=== PATIENT | female | born 1945 | race Caucasian/White ===

== ENCOUNTER 2021-07-26 16:21 | Outpatient (CLI) | payer MEDICARE, SELFPAY ==
[2021-07-26 18:03] LABS: Influenza Control Valid (Valid)
[2021-07-26 18:05] LABS: SARS-CoV-2 Ag Negative (Negative)
== END 2021-07-26 16:22 | disposition home or self-care (01) ==
LOC: CHSLAB 16:31
PROVIDERS: PCP Internal Medicine; Visit Provider Internal Medicine
DX: J06.9 Acute upper respiratory infection, unspecified (principal); Z20.822 Contact with and (suspected) exposure to COVID-19
CPT/HCPCS: 87081; 87426; 87804; 87880; C9803

== ENCOUNTER 2021-10-01 20:21 | Observation (INO) | payer MEDICARE, SELFPAY ==
--- NOTE | ~2021-10-01 | CT_ITS ---
EXAMINATION: [facility] EXAM DATE: 10/01/2021 21:03 INDICATION: Confusion, slurred speech. TECHNIQUE: Spiral CT of the head was performed without contrast. Axial, coronal and sagittal images were reviewed. The dose-length product (DLP) for this examination was 605.33 mGy-cm. The exposure w as tailored according to patient size, and iterative reconstruction (ASIR) was used as additional dos e reduction technique. Comparison is made to prior examination from 09/08/2018. FINDINGS: There is no acute intraparenchymal hemorrhage. No evidence of intraparenchymal brain mass lesion. No evidence of acute infarction. Please note that initial head CT has limited sensitivity f or small or acute infarctions. There is moderate periventricular and subcortical hypodensity, nonspe cific but probably related to small vessel ischemic disease. There is moderate prominence of the rivera lci and ventricles related to cerebral atrophy. There is intracranial carotid arteriosclerosis. The re are no extra-axial collections. There is no mass effect or midline shift. The orbits are unremar kable. Soft tissue is unremarkable. The visualized sinuses and mastoid air cells are well aerated. IMPRESSION: 1. No acute intracranial findings. 2. Chronic age related findings. Reviewed, dictated and finalized at location G.
[2021-10-01 20:25] VITALS: BP 166/108; PULSE 96; RESP 18; TEMP 36.5; O2SAT 98
--- NOTE | 2021-10-01 20:31 | ED.AMS ---
HPI - Altered Mental Status General Chief Complaint: Neuro Symptoms/Deficit Stated Complaint: confusion, speech impaired Time Seen by Provider: 10/01/21 20:31 Source: patient and family History of Present Illness HPI narrative: 76-year-old female with a history of dementia, COPD, seizure disorder, was last known well yesterday. Today at 2:00 p.m. she was noticed to have -- mixing words / unable to get the rightward. -- difficulty walking which she was able to bear weight on her legs. Confused. Difficulty with coordination. No falls. Duration of symptoms was around 4 hours Blood sugar was noted to be 101. MD complaint: altered mental status and confusion Onset (ago): unknown Timing confirmed by: family member and other ( First noted to have confusion and altered speech at 2:00 p.m.) Severity: mild Context: seizure disorder Related Data Home Medications Medication Instructions Recorded Confirmed No Home Medications 10/01/21 10/01/21 Allergies Allergy/AdvReac Type Severity Reaction Status Date / Time No Known Allergies Allergy Verified 10/01/21 20:59 Review of Systems Review of Systems: All systems reviewed & are unremarkable except as noted in HPI and below Constitutional: Constitutional: Reports as per HPI and Reports no additional constitutional complaints Eyes: Eyes: Reports as per HPI and Reports no additional eye complaints ENT: Reports system reviewed and no additional complaints, except as documented Cardiovascular: Cardiovascular: Reports as per HPI and Reports no additional cardiovascular complaints Respiratory: Respiratory: Reports as per HPI and Reports no additional respiratory complaints Gastrointestinal: Gastrointestinal: Reports as per HPI and Reports no additional gastrointestinal complaints Genitourinary: Genitourinary: Reports no additional female genitourinary complaints Musculoskeletal: Musculoskeletal: Reports no additional musculoskeletal complaints and Reports as per HPI Integumentary/Breasts: Skin/Breast: Reports system reviewed and no additional complaints, except as docu Neurologic: Comments: difficulty walking the patient was noted to be mixing words according to her daughter. Psychiatric: Psychiatric: Reports no additional psychiatric complaints and Reports as per HPI Endocrine: Endocrine: Reports no additional endocrine complaints and Reports as per HPI Hematologic/Lymphatic: Hematologic/Lymphatic: Reports no additional hematologic/lymphatic complaints and Reports as per HPI Allergic/Immunologic: Allergic/Immunologic: Reports no additional allergic/immunologic complaints and Reports as per HPI [facility] Past Medical History Medical History COPD (chronic obstructive pulmonary disease) Dementia Seizure disorder Exam Const: General: no acute distress and alert Orientation/consciousness: patient oriented x3 HENMT: Head: normal to inspection Eyes: Conjunctivae: conjunctivae normal Pupils: Equal, round and reactive pupils present EOM: EOMs intact bilaterally Neck: Neck: normal visual inspection, no lymphadenopathy and no meningeal signs Chest: Chest palpation & inspection: normal inspection of the chest Resp: Effort & Inspection: normal respiratory effort Cardio: Rate: regular rate Rhythm: regular rhythm GI: GI Palp: Yes Soft to palpation : General: Yes no CVA tenderness Skin: General skin exam: normal color Rashes: no rashes Neuro: General: patient oriented x3, moves all extremities, no meningeal signs, no focal motor deficits and CN's II-XI intact bilaterally Speech: normal speech Other: no focal neuro deficit was noted on examination in the ER no speech difficulty was noted. No dysphagia. No dysarthria. Extrem: General: normal to inspection Psych: Mental Status: mental status grossly normal Course Course Emergency Course: Patient did not have any neuro deficit or slurred speec
[2021-10-01 20:40] VITALS: BP 165/104; PULSE 93; RESP 18; O2SAT 95
--- NOTE | 2021-10-01 20:49 | ECG_ITS ---
Measurements Intervals [place] Rate: 94 P: 86 NM: 164 QRS: 105 QRSD: 122 T: 48 QT: 366 QTc: 458 Interpretive Statements POOR DATA QUALITY SINUS RHYTHM RIGHT BUNDLE BRANCH BLOCK ABNORMAL ECG NO PREVIOUS ECG AVAILABLE FOR COMPARISON Electronically Signed On 10-02-2021 8:39:46 CDT by Jose Daniel Ibrahim M.D.
[2021-10-01 20:51] LABS: Glucose Point of Care 101 mg/dl (65-105)
[2021-10-01] MEDS: ASPIRIN 81 MG CHEWABLE TABLET 324 MG PO (21:01)
[2021-10-01 21:22] VITALS: BP 163/95; PULSE 90; RESP 18; O2SAT 94
[2021-10-01 21:26] LABS: Basophils Absolute Auto 0.04 K/mm3 (0.00-0.10); Basophils Percent Auto 0.6 % (0.0-1.0); Eosinophils Absolute Auto 0.03 K/mm3 (0.02-0.50); Eosinophils Percent Auto 0.4 % (1.0-6.0); Hematocrit 43.1 % (35.0-42.0); Hemoglobin 13.4 g/dL (11.7-13.8); Immature Granulocyte Absolute 0.01 K/mm3 (0.00-0.00); Immature Granulocyte Percent A 0.1 % (0.0-0.0); Lymphocytes Absolute Auto 0.85 K/mm3 (1.10-4.50); Lymphocytes Percent Auto 12.7 % (18.0-42.0); Mean Corpuscular HGB Conc 31.1 g/dL (32.0-36.0); Mean Corpuscular Hemoglobin 28.2 pg (27.0-31.0); Mean Corpuscular Volume 90.5 fL (78.0-102.0); Mean Platelet Volume 7.9 fl (9.2-11.8); Monocytes Absolute Auto 0.54 K/mm3 (0.10-0.90); Monocytes Percent Auto 8.1 % (2.0-11.0); Neutrophils Absolute Auto 5.2 K/mm3 (1.7-7.2); Neutrophils Percent Auto 78.1 % (50.0-70.0); Platelet Count Result 337 K/mm3 (150-420); Red Blood Count 4.76 M/mm3 (4.20-5.40); Red Cell Distribution Width 12.7 % (11.6-14.4); White Blood Count 6.7 K/mm3 (4.8-10.8)
[2021-10-01 21:30] VITALS: BP 155/100; PULSE 92; RESP 18; O2SAT 97
[2021-10-01 21:38] LABS: Partial Thromboplastin Time 26.6 SEC (23.90-30.70); Prothrombin Time 10.9 Seconds (9.50-12.10)
[2021-10-01 21:41] LABS: Lactic Acid Reflex 0.7 mmol/L (0.4-2.0)
[2021-10-01 21:46] LABS: Alanine Aminotransferase 18 U/L (14-59); Albumin Level 3.5 g/dL (3.4-5.0); Alkaline Phosphatase 83 U/L (46-116); Aspartate Amino Transferase 16 U/L (15-37); Bilirubin,Total 0.4 mg/dL (0.00-1.00); Blood Urea Nitrogen 17 mg/dL (7-18); Calcium 9.3 mg/dL (8.5-10.1); Chloride 99 mmol/L (98-108); Estimated CRCL calculation 24 ml/min; Estimated Glomerular Filt Rate 52; Glucose 99 mg/dL (70-99); Lipase 107 U/L (73-393); NT Pro B Type Natriuretic Pept 556 pg/mL (0-450); Osmolality Calculated 285 mOsm/kg (285-295); Potassium 4.3 mmol/L (3.5-5.1); Sodium 137 mmol/L (136-145); Total Protein 7.6 g/dL (6.4-8.2); Troponin I 14.2 ng/L (0.00-60.4)
[2021-10-01 21:49] LABS: Ammonia < 10 umol/L (11-32)
[2021-10-01 21:52] LABS: Anion Gap 8 mmol/L (8-16); Carbon Dioxide 30 mmol/L (21-32)
[2021-10-01 21:58] LABS: Appearance Urine Clear (Clear); Bilirubin Urine Negative (Negative); Color Urine Light Yellow (Yellow); Glucose Urine UA Negative (Negative); Ketones Urine Negative (Negative); Leukocyte Esterase Ur 1+ (Negative); Nitrate Urine Negative (Negative); Protein Urine Negative (Negative); Urobilinogen Urine 0.2 mg/dL (0.2-1.0)
[2021-10-01 22:00] LABS: Add Urine Microscopic? YES; Bacteria Urine Trace /hpf; Blood Urine Trace-Intact (Negative); Squamous Epithelial Cell Urine Few /hpf (Few)
[2021-10-01 22:04] VITALS: BP 174/103; PULSE 94; RESP 18; O2SAT 96
[2021-10-01 23:15] VITALS: BP 123/103; PULSE 96; RESP 16; O2SAT 96
[2021-10-01 23:31] VITALS: BMI 15.5
--- NOTE | 2021-10-01 23:31 | ADMGEN ---
This patient, Polina Tavarez, was admitted to 2nd Floor Room 207-1. Patient/family oriented to hospital policies and general routines including ID bracelet, bed and alarms, visiting hours, pain management, procedures, bathroom and other care routines, personal items, smoking policy, room service/diet, and visiting hours. Information on how to activate the Rapid Response Team has been discussed. Patient/Family are encouraged to report perceived risks to care and to ask questions if they do not understand what they are told or what they should do.
[2021-10-02] VITALS: BP 179/93; PULSE 111; PULSE 94; RESP 18; TEMP 37.4; O2SAT 92
[2021-10-02] MEDS: SODIUM CHLORIDE 0.9% IV 1,000 ML 75 ML IV CONT (00:15)
[2021-10-02 03:04] VITALS: PULSE 89
[2021-10-02 04:00] VITALS: BP 135/82; PULSE 88; RESP 20; TEMP 37.3; O2SAT 90
[2021-10-02 08:00] VITALS: BP 130/79; PULSE 84; PULSE 85; RESP 14; TEMP 36.7; O2SAT 93
[2021-10-02] MEDS: amLODIPine BESYLATE 5 MG TABLET PO (08:50)
--- NOTE | 2021-10-02 10:22 | PM.SD2 ---
Same Day Admit/Disch: HPI History of Present Illness Chief complaint: confusion, speech impaired Narrative: Polina Tavarez is a 76 year old female that presented to our emergency department with increased confusion and speech impairment. Patient has a past medical history of dementia, COPD, and seizure disorder. Patient is a poor historian she is alert and orientated to name and location only. I did speak with her daughter and she notes that patient has been diagnosed with dementia that has worsened in the last couple months. She notes that she spoke with her mother earlier today and noticed that her speech was impaired. Per my assessment patient did not have any neurological deficiencies other than her deficiencies caused by her dementia. According to her daughter she does have an appointment with Dr. Bauer tomorrow. I informed her daughter that we will do outpatient echo, MRI and carotid Doppler with results going to Dr. Bauer. I also informed her daughter that I put her on preventive medications for CVA which would be aspirin in atorvastatin. Patient was also placed on hypertension medication on admission her blood pressure was 166/108 it is currently 130/79, 85, 14, 98.0, 93% on room air, WBC 6.7, hemoglobin 13.4, hematocrit 43.1, platelets 337, sodium 137, potassium 4.3, BUN 17, creatinine 1.03, glucose 99, lactic acid 0.7, tbili 0.4, ast 16, alt 18, trop 14.2, BNP 556, ua leukocytes esterase, bacteria CT brain no acute findings EKG sinus rhythm with a heart rate of 94. The patient denies SOB, CP, palpitation, extremity numbness, lightheadedness, dizziness, constipation, diarrhea, chills, or fever. Patient being admitted to rule out CVA versus [facility] Past Medical History Medical History COPD (chronic obstructive pulmonary disease) Dementia Seizure disorder Social History Social History Smoking packs per day: 0.5 Smoking cigarettes per day: 10.0 Years smoked: 55 Smoking pack-years: 27.50 Smoking status: Former smoker Tobacco type: cigarettes Alcohol intake: never Substance use: never Spiritual care concerns: No Same Day Admit/Disch: Med Pre-admit Medications Home Medications Medication Instructions Recorded Confirmed Type amlodipine [Norvasc] 5 mg PO QAM #60 tablet 10/02/21 Rx aspirin 325 mg PO DAILY #30 tablet 10/02/21 Rx atorvastatin 10 mg PO DAILY #30 tablet 10/02/21 Rx sulfamethoxazole-trimethoprim 1 tablet PO Q12H 7 Days #14 tablet 10/02/21 Rx [Bactrim DS] Exam Narrative: GENERAL: Confused in no apparent distress. HEAD: normocephalic, atraumatic. EYES: PERRL. Sclera clear/white. Vision is grossly intact. EARS: External ears normal, auditory canals clear and without drainage, TMs normal without perforation. Hearing grossly intact. NOSE: External nose normal with no obvious nasal discharge, nares without redness, no rhinorrhea. THROAT: Mucous membranes moist, posterior pharynx clear. NECK: Neck supple, non-tender without lymphadenopathy, masses or thyromegaly. CARDIOVASCULAR: Regular rate and rhythm without murmurs, gallops, or rubs. RESPIRATORY: Clear to auscultation. Breath sounds equal bilaterally. No wheezes, rales, or rhonchi. GASTROINTESTINAL: Abdomen soft, non-tender, nondistended. Bowel sounds are active. No hepato-splenomegaly, or palpable masses. No guarding. SKIN: warm, intact with no suspicious lesions or rash, good texture and turgor. NEURO: awake, alert, and oriented to self and location only there were no obvious focal neurologic abnormalities. Steady gait EXTREMITIES: Normal range of motion. No edema. No calf tenderness. Negative Homans sign bilaterally. BACK: Nontender without deformity or crepitance. No flank tenderness. DS: Data Data Completed and Pending Labs on day of discharge: Labs from last 24 hours 10/01/21 10/01/21 10/01/21 21:50 21:20 21:20
[2021-10-02 12:00] VITALS: BP 136/78; PULSE 84; PULSE 86; RESP 14; TEMP 36.8; O2SAT 95
--- NOTE | 2021-10-02 13:52 | PC.NURSE ---
Pt discharged to home with family care. VSS. Discharge instructions reviewed with pt and daughter. medications and follow up appointments reviewed. Both pt and daughter verbalize understanding.
--- NOTE | 2021-10-06 10:11 | PC.NURSE ---
Pt states she received and understood her discharge instructions. Pt also states they were very, very good.
== END 2021-10-02 13:00 | disposition home or self-care (01) ==
LOC: CHSED 22:17 → CHS2ND 22:26
PROVIDERS: Admitting Provider Internal Medicine; Emergency Provider Internal Medicine Critical Care Medicine; PCP Internal Medicine; Visit Provider Internal Medicine
DX: G45.9 Transient cerebral ischemic attack, unspecified (principal); N39.0 Urinary tract infection, site not specified; J44.9 Chronic obstructive pulmonary disease, unspecified; R56.9 Unspecified convulsions; F03.90 Unspecified dementia, unspecified severity, without behavioral disturbance, psychotic disturbance, mood disturbance, and anxiety; I10 Essential (primary) hypertension
CPT/HCPCS: 36415; 70450; 80053; 81001; 82140; 82948; 83605; 83690; 83880; 84484; 85025; 85610; 85730; 87086; 93005; 96361; 96365; 96367; 99285; A9270; G0378; J0456; J0696; J1650; J7030

== ENCOUNTER 2021-10-05 13:50 | Outpatient (CLI) | payer MEDICARE, SELFPAY ==
--- NOTE | 2021-10-05 14:00 | ECHO_ITS ---
Patient Info Name: Polina Tavarez Age: 76 years : 1945 Gender: Female Ht: 62 in Wt: 90 lbs BSA: 1.33 m2 HR: 110 bpm BP: 128 / 67 mmHg Technical Quality: Good Exam Date: 10/05/2021 1:46 PM Exam Location: [facility] Patient Status: Outpatient Admit Date: 10/05/2021 Staff Ordering Physician: Christian Saxena Technology Consultant: Rashad Attending Provider: Christian Saxena Referring Physician: Hemanth SHERIFF; Exam Type: CA echo doppler color flow Study Info Indications G45.9 - Transient cerebral ischemic attack, unspecified Complete two-dimensional, color flow and Doppler transthoracic echocardiogram is performed. Summary 1. Complete two-dimensional, color flow and Doppler transthoracic echocardiogram is performed. 2. Left ventricular chamber dimension is normal. 3. Left ventricular systolic function is hyperdynamic, estimated at >70%. 4. The left ventricular diastolic function is grade I diastolic dysfunction. 5. E/e' 7 is not elevated. 6. There is trace tricuspid valve regurgitation. 7. No pulmonary hypertension, estimated pulmonary arterial systolic pressure is 32 mmHg. Left Ventricle E/e' 7 is not elevated. Left ventricular chamber dimension is normal. Left ventricular systolic function is hyperdynamic, estimated at >70%. The left ventricular diastolic function is grade I diastolic dysfunction. Right Ventricle Right ventricular systolic function is normal and with normal TAPSE 2.0 cm. Right ventricular chamber dimension is normal. Left Atria Left atrial chamber dimension is normal. Right Atria Right atrial chamber dimension is normal. Aortic Valve The aortic valve is trileaflet. There is no aortic valve stenosis. There is no aortic valve regurgitation. Pulmonic Valve There is no pulmonic regurgitation. Mitral Valve There is no mitral valve stenosis. There is no mitral valve regurgitation. Tricuspid Valve There is trace tricuspid valve regurgitation. No pulmonary hypertension, estimated pulmonary arterial systolic pressure is 32 mmHg. Pericardium/Pleural There is no pericardial effusion. Inferior Vena Cava Normal inferior vena cava with >50% collapse upon inspiration consistent with normal right atrial pressure, 5 mmHg. Aorta The aortic root size at the sinus of Valsalva is normal. Left Ventricular Outflow Tract Name Value Normal LVOT 2D LVOT Diameter 1.8 cm LVOT Doppler LVOT Peak Velocity 100 cm/s LVOT Peak Gradient 4 mmHg LVOT Mean Gradient 2 mmHg LVOT VTI 20 cm LVOT VTI/AV VTI Ratio 0.9 LVOT Stroke Volume 51 ml Mitral Valve Name Value Normal MV Doppler MV Decel Frederick 346 cm/s2 MV PHT
== END 2021-10-05 13:51 | disposition home or self-care (01) ==
LOC: CHSIMG 13:51
PROVIDERS: PCP Internal Medicine; Visit Provider Nurse Practitioner
DX: G45.9 Transient cerebral ischemic attack, unspecified (principal)
CPT/HCPCS: 93306

== ENCOUNTER 2021-10-15 08:27 | Outpatient (CLI) | payer MEDICARE, SELFPAY ==
--- NOTE | ~2021-10-15 | MR_ITS ---
EXAMINATION: MR brain/brain stem wo con DATE: 10/15/2021 09:15 INDICATION: Transient cerebral ischemic attack. TECHNIQUE: Magnetic resonance imaging (MRI) of the brain and brainstem was performed without intraven ous contrast. Sequences included sagittal T1-weighted FSE, axial DWI, and axial FLAIR. The patient co uld not perform additional imaging. COMPARISON: Brain MRI 11/27/2018, head CT 10/01/2021 FINDINGS: There is no acute ischemic infarct or intracranial hemorrhage. There are scattered areas of nonspecific increased T2-weighted signal intensity in the cerebral white matter and fifi. The ventri cles are normal in size. The orbits are normal. IMPRESSION: 1. Stable moderate nonspecific cerebral white matter disease and pontine disease, which likely repres ents chronic small vessel ischemic disease. 2. Note that the examination was ended prematurely, and some sequences were not performed, which decr eases sensitivity. Reviewed, dictated and finalized at location A. IMPRESSION: 1. Stable moderate nonspecific cerebral white matter disease and pontine diseas e, which likely represents chronic small vessel ischemic disease. 2. Note that the examination was ended prematurely, and some sequences were not performed, which decreases sensitivity.
== END 2021-10-15 08:28 | disposition home or self-care (01) ==
LOC: CHSIMG 08:28
PROVIDERS: PCP Internal Medicine; Visit Provider Nurse Practitioner
DX: G45.9 Transient cerebral ischemic attack, unspecified (principal)
CPT/HCPCS: 70551

== ENCOUNTER 2022-05-29 12:51 | Outpatient (CLI) | payer MEDICARE, SELFPAY ==
--- NOTE | ~2022-05-29 | CT_ITS ---
EXAMINATION: CT lung screening DATE: 05/29/2022 13:31 INDICATION: Personal history of tobacco dependence TECHNIQUE: Computed tomography (CT) of the chest was performed without intravenous contrast. The dose -length product was 64.84 mGy-cm. Automated exposure control and iterative reconstruction technique w ere employed. COMPARISON: CT dated 12/23/2018 FINDINGS: Heart size normal. No significant pleural or pericardial effusion. Stable borderline size m ediastinal lymph node in the precarinal space and AP window, likely reactive. There is atherosclerosi s of the aorta and coronary arteries. Heart size normal. No significant pleural or pericardial effusi on. There is emphysema. No endobronchial lesions. Calcified granuloma superior segment right lower lo be. There is a 3 mm right upper lobe nodule, image 45. This is unchanged from prior study. There are small nodules in the left upper lobe measuring 2 mm or less. No peripheral consolidation. No pneumoth orax. There is a chronic superior endplate compression fracture of T12 unchanged. There is scoliosis. IMPRESSION: 1. Lung-RADS category 2: Benign appearance or behavior. Continue annual screening with noncontrast lo w-dose chest CT in 12 months. Reviewed, dictated and finalized at location B. GE WORKER IMPRESSION: 1. Lung-RADS category 2: Benign appearance or behavior. Continue annual screeni ng with noncontrast low-dose chest CT in 12 months.
--- NOTE | ~2022-05-29 | DEXA_ITS ---
Bone Density Report Name: MARINA LOPEZ Age: 76 Sex: Female Ethnicity: White Date of : 1945 Indication: postmenopausal; screening for osteoporosis; height loss; seizure disorder; Referring Provider: Ricky Bauer Study: Bone densitometry was performed. Exam Date: May 29, 2022 Accession number: [id number] Bone Density: Region BMD T-score Z-score Classification AP Spine(L1-L4) 0.561 -4.4 -1.9 Osteoporosis Femoral Neck (Left) 0.385 -4.2 -2.0 Osteoporosis Total Hip (Left) 0.433 -4.2 -2.3 Osteoporosis Femoral Neck (Right) 0.353 -4.5 -2.3 Osteoporosis Total Hip (Right) 0.391 -4.5 -2.6 Osteoporosis Femoral Neck Mean 0.369 -4.3 -2.2 Osteoporosis Total Hip Mean 0.412 -4.3 -2.5 Osteoporosis World Health Organization criteria for BMD impression classify patients as: Normal (T-score at or above -1.0), Osteopenia (T-score between -1.0 and -2.5), or Osteoporosis (T-score at or below -2.5). 10-year Fracture Risk: FRAX not reported because: Some T-score for Spine Total or Hip Total or Femoral Neck at or below -2.5 Clinical Information Provided by Patient: Has used the following medications: Vitamin D Has the following medical conditions: Any Seizure Disorders Patient maximum height was 62 Menopause Age: 50 No regular weight bearing exercise Does not regularly consume dairy products Onset of menses at age 11 Number of children 2 Impression: The patient has osteoporosis, based on the Right Total Hip T-score. Discussion: HIGH RISK OF FRACTURE. BONE DENSITY IS UNDESIRABLY LOW AT ONE OR MORE SKELETAL SITES, CONSISTENT WITH OSTEOPOROSIS. ALSO, BONE DENSITY IS LOWER THAN EXPECTED FOR AGE AND SEX AT ONE OR MORE SKELETAL SITES; RECOMMEND A DILIGENT SEARCH FOR SECONDARY CAUSES OF BONE LOSS. This patient's lowest T-score meets the World Health Organization's (WHO) criteria for osteoporosis at one or more sites (T-score -2.5 or below). In untreated patients, the risk of osteoporotic fracture increases approximately two-fold for each 1.0 SD decrease in T-score. Low bone density is not the only risk factor for fracture; also consider factors such as patient's age, frailty or poor health, risk of falling, risk of injury, previous osteoporotic fracture, family history of osteoporosis, cigarette smoking, low body weight, etc. Not everyone with low bone mineral density has osteoporosis; osteomalacia and other metabolic bone disorders should also be considered. Patients who have osteoporosis should be evaluated for specific diseases and conditions (secondary causes) that may cause or contribute to bone loss. The [place] Association [employer] Clinical Endocrinologists (AACE) and National Osteoporosis Foundation (NOF) recommend pharmacologic intervention for all postmenopausal women whose T-score is in th
== END 2022-05-29 12:52 | disposition home or self-care (01) ==
LOC: CHSIMG 12:54
PROVIDERS: PCP Internal Medicine; Visit Provider Internal Medicine
DX: Z12.2 Encounter for screening for malignant neoplasm of respiratory organs (principal); Z87.891 Personal history of nicotine dependence; M81.0 Age-related osteoporosis without current pathological fracture
CPT/HCPCS: 71271; 77080

== ENCOUNTER 2022-06-22 13:42 | Emergency (ER) | payer MEDICARE, MEDICAID, SELFPAY ==
--- NOTE | ~2022-06-22 | XR_ITS ---
EXAMINATION: XR chest 1V portable INDICATION: Weakness and shortness of breath TECHNIQUE: Portable AP chest at 1502 hours COMPARISON: 11/25/[address] dated 05/29/2022 FINDINGS: The lungs are hyperinflated but free of acute opacities. No pleural effusion or pneumothora x. The cardiomediastinal silhouette is normal. IMPRESSION: 1. Hyperinflation without acute cardiopulmonary abnormality. Reviewed, dictated and finalized at location A. ACE FITTER
--- NOTE | 2022-06-22 14:32 | ECG_ITS ---
Measurements Intervals [place] Rate: 91 P: 85 [place]: 133 QRS: 156 QRSD: 122 T: 46 QT: 362 QTc: 445 Interpretive Statements SINUS RHYTHM RIGHT BUNDLE BRANCH BLOCK [120+ ms QRS DURATION, UPRIGHT V1, 40+ ms S IN I/aVL/V4/V5/V6] LEFT POSTERIOR FASCICULAR BLOCK [QRS AXIS > 109, INFERIOR Q] COMPARED TO ECG 10/01/2021 21:06:15 LEFT POSTERIOR FASCICULAR BLOCK NOW PRESENT Electronically Signed On 06-22-2022 20:08:49 HEALTH CARE LAW SPECIALIST by Cherie Drew M.D.
[2022-06-22 14:40] VITALS: BP 119/73; PULSE 110; RESP 20; TEMP 36.4; O2SAT 91
[2022-06-22] MEDS: SODIUM CHLORIDE 0.9% IV 1,000 ML 999 ML IV CONT (15:09)
[2022-06-22 15:16] LABS: Basophils Absolute Auto 0.04 K/mm3 (0.00-0.10); Basophils Percent Auto 0.6 % (0.0-1.0); Eosinophils Absolute Auto 0.06 K/mm3 (0.02-0.50); Eosinophils Percent Auto 0.9 % (1.0-6.0); Hematocrit 48.5 % (35.0-42.0); Hemoglobin 15.4 g/dL (11.7-13.8); Immature Granulocyte Absolute 0.03 K/mm3 (0.00-0.00); Immature Granulocyte Percent A 0.4 % (0.0-0.0); Lymphocytes Percent Auto 14.6 % (18.0-42.0); Mean Corpuscular HGB Conc 31.8 g/dL (32.0-36.0); Mean Corpuscular Hemoglobin 29.2 pg (27.0-31.0); Mean Corpuscular Volume 91.9 fL (78.0-102.0); Mean Platelet Volume 8.6 fl (9.2-11.8); Monocytes Absolute Auto 0.46 K/mm3 (0.10-0.90); Monocytes Percent Auto 6.7 % (2.0-11.0); Neutrophils Absolute Auto 5.2 K/mm3 (1.7-7.2); Neutrophils Percent Auto 76.8 % (50.0-70.0); Platelet Count Result 278 K/mm3 (150-420); Red Blood Count 5.28 M/mm3 (4.20-5.40); Red Cell Distribution Width 12.5 % (11.6-14.4); White Blood Count 6.8 K/mm3 (4.8-10.8)
[2022-06-22 15:17] LABS: Add Urine Microscopic? YES; Appearance Urine Clear (Clear); Bilirubin Urine 2+ (Negative); Blood Urine Trace-Intact (Negative); Color Urine Yellow (Yellow); Glucose Urine UA Negative (Negative); Ketones Urine 1+ (Negative); Leukocyte Esterase Ur Negative LEU/UL (Negative); Nitrate Urine Negative (Negative); Protein Urine 3+ (Negative); Specific Grav Ur >= 1.030 (1.010-1.020)
[2022-06-22 15:40] LABS: Bacteria Urine Trace /hpf; Mucus Urine Few /lpf; RBC Urine 0-2 /hpf (0-2); Squamous Epithelial Cell Urine Few /hpf (Few); WBC Urine 0-3 /hpf (0-3)
[2022-06-22 15:42] LABS: Alanine Aminotransferase 21 U/L (14-59); Albumin Level 4.1 g/dL (3.4-5.0); Alkaline Phosphatase 65 U/L (46-116); Anion Gap 8 mmol/L (8-16); Aspartate Amino Transferase 22 U/L (15-37); Bilirubin,Total 0.6 mg/dL (0.00-1.00); Blood Urea Nitrogen 19 mg/dL (7-18); Calcium 9.8 mg/dL (8.5-10.1); Carbon Dioxide 30 mmol/L (21-32); Chloride 102 mmol/L (98-108); Estimated CRCL calculation 18 ml/min; Estimated Glomerular Filt Rate 42; Glucose 100 mg/dL (70-99); Osmolality Calculated 292 mOsm/kg (285-295); Potassium 3.4 mmol/L (3.5-5.1); Sodium 140 mmol/L (136-145); Total Protein 7.8 g/dL (6.4-8.2)
[2022-06-22 15:45] LABS: Lactic Acid Reflex 1.9 mmol/L (0.4-2.0)
--- NOTE | 2022-06-22 16:03 | ED.GENADULT ---
HPI - General Adult General Chief complaint: Dizziness Stated complaint: loss of appetite/Dizzy/confusion/ Time Seen by Provider: 06/22/22 13:48 Source: patient Mode of arrival: ambulatory Limitations: no limitations History of Present Illness HPI narrative: this is a 76-year-old female brought in by her daughter with some about 3 month history of a decreased appetite currently having weakness with history of dementia there is no chest pain no shortness of breath no fever chills no abdominal pain no nausea vomiting does have some mild dysuria with suprapubic pressure with no flank pain no dysuria. Onset (ago): month(s) Severity: mild Related Data Allergies Allergy/AdvReac Type Severity Reaction Status Date / Time No Known Allergies Allergy Verified 10/06/21 11:20 Review of Systems Review of Systems: All systems reviewed & are unremarkable except as noted in HPI and below PMFSH Past Medical History Medical History COPD (chronic obstructive pulmonary disease) Dementia Seizure disorder Social History Social History Smoking packs per day: 0.5 Smoking cigarettes per day: 10.0 Years smoked: 55 Smoking pack-years: 27.50 Smoking status: Former smoker Tobacco type: cigarettes Alcohol intake: never Substance use: never Spiritual care concerns: No Exam Const: General: healthy appearing Nutritional Appearance: thin Limitations: no limitations HENMT: Head: normal to inspection Face/Nose/Sinus: Normal external nose present Face and sinus: normal facial exam Mouth: Yes Normal oral and palatal mucosa present Eyes: Conjunctivae: conjunctivae normal Pupils: Equal, round and reactive pupils present EOM: EOMs intact bilaterally Neck: Neck: normal visual inspection Chest: Chest palpation & inspection: normal inspection of the chest Resp: Effort & Inspection: normal respiratory effort Auscultation: clear to auscultation bilaterally Cardio: Rate: regular rate Rhythm: regular rhythm GI: GI Palp: Yes Soft to palpation Auscultation: normal bowel sounds : General: Yes bladder normal to palpation Urinary Catheter: Urinary Catheter: patent and draining Back/Spine/Pelvis: Back: no CVA tenderness Skin: General skin exam: normal color Rashes: no rashes Wounds: no wounds Neuro: General: patient oriented x3 Cranial nerves: Yes Nystagmus not present Speech: normal speech Gait exam (Neuro): Normal gait present Extrem: General: normal to inspection Psych: Mental Status: mental status grossly normal Affect: normal affect Attitude: cooperative Course Course Emergency Course: You had with patient and family advised to follow-up with her primary care physician within the next week for further evaluation and treatment. Vital Signs Vital signs: Vital Signs Temperature 36.4 C L 06/22/22 14:40 Pulse Rate 110 H 06/22/22 14:40 Respiratory Rate 20 06/22/22 14:40 Blood Pressure 119/73 06/22/22 14:40 Pulse Oximetry 91 06/22/22 14:40 Oxygen Delivery Room Air 06/22/22 14:40 Temperature 36.4 C L 06/22/22 14:40 Pulse Rate 110 H 06/22/22 14:40 Respiratory Rate 20 06/22/22 14:40 Blood Pressure 119/73 06/22/22 14:40 Pulse Oximetry 91 06/22/22 14:40 Oxygen Delivery Room Air 06/22/22 14:40 Medical Decision Making Vital Signs Vital Signs: Vital Signs Temperature 36.4 C L 06/22/22 14:40 Pulse Rate 110 H 06/22/22 14:40 Respiratory Rate 20 06/22/22 14:40 Blood Pressure 119/73 06/22/22 14:40 Pulse Oximetry 91 06/22/22 14:40 Oxygen Delivery Room Air 06/22/22 14:40 Temperature 36.4 C L 06/22/22 14:40 Pulse Rate 110 H 06/22/22 14:40 Respiratory Rate 20 06/22/22 14:40 Blood Pressure 119/73 06/22/22 14:40 Pulse Oximetry 91 06/22/22 14:40 Oxygen Delivery Room Air 06/22/22 14:40 Lab Data 06/22/22 15:09
[2022-06-22 16:34] VITALS: BP 116/67; PULSE 84; RESP 20; TEMP 36.7; O2SAT 94
--- NOTE | 2022-06-28 12:54 | PC.NURSE ---
FINAL BLOOD CULTURE RESULTS X2: NO GROWTH AFTER 5 DAYS. NO ACTION NEEDED.
== END 2022-06-22 16:30 | disposition home or self-care (01) ==
PROVIDERS: Emergency Provider Emergency Medicine; PCP Internal Medicine
DX: N39.0 Urinary tract infection, site not specified (principal); J44.9 Chronic obstructive pulmonary disease, unspecified; F03.90 Unspecified dementia, unspecified severity, without behavioral disturbance, psychotic disturbance, mood disturbance, and anxiety; Z87.891 Personal history of nicotine dependence
CPT/HCPCS: 36415; 71045; 80053; 81001; 83605; 85025; 87040; 93005; 96360; 99283; J7030

== ENCOUNTER 2022-06-28 15:21 | Emergency (ER) | payer MEDICARE, MEDICAID, SELFPAY ==
--- NOTE | ~2022-06-28 | XR_ITS ---
EXAMINATION: XR chest 2V DATE: 06/28/2022 16:28 INDICATION: Weakness, history of tobacco use TECHNIQUE: PA and lateral views of the chest are obtained. COMPARISON: 06/22/2022 FINDINGS: The lungs are hyperinflated but free of acute opacities. No pleural effusion or pneumothora x. The cardiomediastinal silhouette is normal. There is moderate thoracic spondylosis. IMPRESSION: 1. Hyperinflation without acute cardiopulmonary abnormality. Reviewed, dictated and finalized at location F. THCARE MANAGEMENT CONSULTANT
[2022-06-28 15:25] VITALS: BP 113/84; PULSE 102; RESP 16; TEMP 36.3; O2SAT 96
--- NOTE | 2022-06-28 15:32 | ECG_ITS ---
Measurements Intervals [place] Rate: 97 P: 84 [place]: 134 QRS: 109 QRSD: 121 T: -12 QT: 358 QTc: 455 Interpretive Statements SINUS RHYTHM POSSIBLE LEFT ATRIAL ENLARGEMENT [-0.1mV P WAVE IN V1/V2] MARKED RIGHT AXIS DEVIATION [QRS AXIS > 100] RIGHT BUNDLE BRANCH BLOCK [120+ ms QRS DURATION, UPRIGHT V1, 40+ ms S IN I/aVL/V4/V5/V6] COMPARED TO ECG 06/22/2022 14:43:22 NO SIGNIFICANT CHANGES Electronically Signed On 06-28-2022 18:14:21 MACHINE ASSEMBLER SUPERVISOR by Hank Streeter M.D.
[2022-06-28 15:54] LABS: Basophils Absolute Auto 0.1 K/mm3 (0.0-0.1); Basophils Percent Auto 0.7 % (0.2-1.2); Eosinophils Percent Auto 0.4 % (0-4.4); Hematocrit 47.8 % (37.0-47.0); Hemoglobin 15.1 g/dL (12.0-15.0); Immature Granulocyte Absolute 0.02 K/mm3 (0.00-0.031); Immature Granulocyte Percent A 0.3 % (0-0.5); Lymphocytes Absolute Auto 0.68 K/mm3 (0.9-3.2); Lymphocytes Percent Auto 9.8 % (18.3-44.2); Mean Corpuscular HGB Conc 31.6 g/dl (32-36); Mean Corpuscular Hemoglobin 29.2 pg (26-34); Mean Corpuscular Volume 92.3 fl (80-100); Mean Platelet Volume 8.6 fl (7.4-10.4); Monocytes Absolute Auto 0.4 K/mm3 (0.1-0.6); Monocytes Percent Auto 6.4 % (2.6-8.5); Neutrophils Absolute Auto 5.7 K/mm3 (1.3-6.7); Neutrophils Percent Auto 82.4 % (45.5-73.1); Platelet Count Result 296 k/mm3 (150-375); Red Blood Count 5.18 M/mm3 (4.2-5.4); Red Cell Distribution Width 12.9 % (11.5-14.5); White Blood Count 6.9 K/mm3 (4.5-10.0)
[2022-06-28 16:02] LABS: Alanine Aminotransferase 23 U/L (6-35); Albumin Level 4.4 g/dL (3.5-5.1); Alkaline Phosphatase 65 U/L (38-126); Anion Gap 8 mmol/L (8-16); Aspartate Amino Transferase 37 U/L (14-36); Bilirubin,Total 0.6 mg/dL (0.2-1.3); Blood Urea Nitrogen 14 mg/dL (7-17); Calcium 9.4 mg/dL (8.4-10.2); Carbon Dioxide 33 mmol/L (22-30); Chloride 98 mmol/L (98-107); Estimated CRCL calculation 22 ml/min; Estimated Glomerular Filt Rate 54; Glucose 110 mg/dL (65-110); Potassium 3.2 mmol/L (3.4-5.0); Sodium 139 mmol/L (137-145)
[2022-06-28 16:23] LABS: Influenza A QL RT-PCR Negative (Negative); Influenza B QL RT-PCR Negative (Negative); RSV RNA, RT-PCR Negative (Negative); SARS-CoV-2 RNA PCR Negative
[2022-06-28 16:41] LABS: Appearance Urine Clear (Clear); Bilirubin Urine 2+ (Negative); Blood Urine Trace-Intact (Negative); Glucose Urine UA Negative (Negative); Ketones Urine 1+ mg/dL (Negative); Leukocyte Esterase Ur Negative LEU/UL (Negative); Nitrate Urine Negative (Negative); Protein Urine 3+ mg/dL (Negative); Specific Grav Ur >= 1.030 (1.001-1.035); Urobilinogen Urine 0.2 mg/dL (<2.0); pH Urine 5.5 (5.0-9.0)
[2022-06-28 16:52] LABS: Add Urine Microscopic? YES; Color Urine Dark Yellow (Yellow)
[2022-06-28 17:06] LABS: Hyaline Casts Urine 20-29 /lpf; Mucus Urine Heavy /lpf; RBC Urine 0-2 /hpf (0-2); Squamous Epithelial Cell Urine Few /hpf (Few)
[2022-06-28 20:10] VITALS: BP 110/72; PULSE 97; RESP 14; O2SAT 97
--- NOTE | 2022-06-28 21:22 | ED.WEAKNESS ---
HPI - Weakness General Chief complaint: Weakness Stated complaint: fatigue, poor appetite the past month. Time Seen by Provider: 06/28/22 21:02 History of Present Illness HPI Narrative: 76-year-old female history of dementia, hypertension, TIAs presents to the emergency room with increasing weakness, fatigue and a poor appetite over 1 month. Patient was seen at an outside emergency room 1 week ago and was told that she had a UTI. Finished a course of antibiotics and symptoms have not improved. Patient is accompanied by her daughter, who provides some of the history. Daughter states patient has shown a decrease in appetite and oral intake over the last month, and has fallen multiple times over the past year. Daughter also reports patient has experienced unexplained weight loss. Related Data Home Medications Medication Instructions Recorded Confirmed amlodipine 5 mg tablet (Norvasc) 10 mg PO QAM 06/22/22 06/22/22 calcitriol 0.25 mcg capsule 0.25 mcg PO DAILY 06/22/22 06/22/22 donepezil 10 mg tablet 10 mg PO BID 06/22/22 06/22/22 Allergies Allergy/AdvReac Type Severity Reaction Status Date / Time No Known Allergies Allergy Verified 06/22/22 16:17 Review of Systems Review of Systems: CONSTITUTIONAL: Denies fever, chills, or sweats. EYES: Denies visual changes, redness, or discharge. ENT: Denies rhinorrhea, congestion, sore throat, or otalgia. CARDIOVASCULAR: Denies chest pain, palpitations, or edema. RESPIRATORY: Denies cough or dyspnea. GASTROINTESTINAL: Denies abdominal pain, nausea, vomiting, or diarrhea. GENITOURINARY: Denies dysuria or hematuria. SKIN: Denies rash or itching. MUSCULOSKELETAL: Denies back pain, joint pain, or myalgia. NEUROLOGIC: Reports weakness, dizziness PSYCHIATRIC: Denies anxiety or depression. [facility] Past Medical History Medical History COPD (chronic obstructive pulmonary disease) Dementia Seizure disorder Social History Social History Smoking packs per day: 0.5 Smoking cigarettes per day: 10.0 Years smoked: 55 Smoking pack-years: 27.50 Smoking status: Former smoker Tobacco type: cigarettes Alcohol intake: never Substance use: never Spiritual care concerns: No Exam Narrative: GENERAL: Chronically ill appearing, cachectic, no physical limitations, and in no acute distress. HEAD: Normocephalic, atraumatic. EYES: Conjunctivae normal, PERRLA and EOMI. ENT: External nose normal, Nares clear, no rhinorrhea or epistaxis. Mucous membranes moist. Oropharynx without tonsillar hypertrophy exudate or other lesions. External ears normal, bilateral TMs normal bilaterally NECK: Supple. CHEST: Clear to auscultation. No respiratory distress. No wheezes rales or rhonchi. HEART: Regular rate and rhythm. No murmur heard. Normal peripheral pulses. ABDOMEN: Soft, nontender, nondistended, normal active bowel sounds. EXTREMITIES: Normal range of motion. No edema. No clubbing or cyanosis SKIN: Warm, dry, no rash. No noted wounds NEURO: No focal deficits. Alert and oriented x3. MAEW. CN's II-XI intact bilaterally, normal gait PSYCH: Cooperative. Normal mood and affect. Course Vital Signs Vital signs: Vital Signs Temperature 36.3 C L 06/28/22 15:25 Pulse Rate 102 H 06/28/22 15:25 Respiratory Rate 16 06/28/22 15:25 Blood Pressure 113/84 06/28/22 15:25 Pulse Oximetry 96 06/28/22 15:25 Oxygen Delivery Room Air 06/28/22 15:25 Temperature 36.3 C L 06/28/22 15:25 Pulse Rate 97 06/28/22 20:10 Respiratory Rate 14 06/28/22 20:10 Blood Pressure 110/72 06/28/22 20:10 Pulse Oximetry 97 06/28/22 20:10 Oxygen Delivery Room Air 06/28/22 15:25 MDM - Weakness MDM Narrative Medical decision making narrative: 76-year-old female presenting with her daughter to the emergency room for increasing weakness, fatigue poor appetite over a month. Pat
== END 2022-06-28 22:12 | disposition home or self-care (01) ==
PROVIDERS: Emergency Medicine; Emergency Provider Nurse Practitioner Family; PCP Internal Medicine
DX: R62.7 Adult failure to thrive (principal); Z68.1 Body mass index [BMI] 19.9 or less, adult; Z20.822 Contact with and (suspected) exposure to COVID-19; F03.90 Unspecified dementia, unspecified severity, without behavioral disturbance, psychotic disturbance, mood disturbance, and anxiety; I10 Essential (primary) hypertension; J44.9 Chronic obstructive pulmonary disease, unspecified; G40.909 Epilepsy, unspecified, not intractable, without status epilepticus; Z86.73 Personal history of transient ischemic attack (TIA), and cerebral infarction without residual deficits; Z87.891 Personal history of nicotine dependence; I45.10 Unspecified right bundle-branch block; R94.31 Abnormal electrocardiogram [ECG] [EKG]
CPT/HCPCS: 36415; 71046; 80053; 81001; 85025; 87637; 93005; 99283

== ENCOUNTER 2022-07-07 10:11 | Outpatient (CLI) | payer MEDICARE, SELFPAY ==
[2022-07-07 10:50] LABS: Anion Gap 6 mmol/L (8-16); Blood Urea Nitrogen 9 mg/dL (7-18); Calcium 9.2 mg/dL (8.5-10.1); Carbon Dioxide 37 mmol/L (21-32); Chloride 99 mmol/L (98-108); Estimated Glomerular Filt Rate 44; Glucose 127 mg/dL (70-99); Magnesium 1.7 mg/dL (1.8-2.4); Osmolality Calculated 294 mOsm/kg (285-295); Potassium 2.9 mmol/L (3.5-5.1); Sodium 142 mmol/L (136-145)
== END 2022-07-07 10:12 | disposition home or self-care (01) ==
LOC: CHSLAB 10:14
PROVIDERS: PCP Internal Medicine; Visit Provider Internal Medicine
DX: E87.6 Hypokalemia (principal)
CPT/HCPCS: 36415; 80048; 83735

== ENCOUNTER 2022-07-10 13:33 | Outpatient (CLI) | payer MEDICARE, SELFPAY ==
[2022-07-10 14:20] LABS: Alanine Aminotransferase 23 U/L (14-59); Albumin Level 3.6 g/dL (3.4-5.0); Alkaline Phosphatase 61 U/L (46-116); Anion Gap 2 mmol/L (8-16); Aspartate Amino Transferase 20 U/L (15-37); Bilirubin,Total 0.4 mg/dL (0.00-1.00); Blood Urea Nitrogen 8 mg/dL (7-18); Calcium 9.3 mg/dL (8.5-10.1); Carbon Dioxide 37 mmol/L (21-32); Chloride 103 mmol/L (98-108); Estimated Glomerular Filt Rate 46; Glucose 123 mg/dL (70-99); Magnesium 1.9 mg/dL (1.8-2.4); Osmolality Calculated 293 mOsm/kg (285-295); Potassium 3.8 mmol/L (3.5-5.1); Sodium 142 mmol/L (136-145); Total Protein 6.5 g/dL (6.4-8.2)
== END 2022-07-10 13:34 | disposition home or self-care (01) ==
LOC: CHSLAB 13:37
PROVIDERS: PCP Internal Medicine; Visit Provider Internal Medicine
DX: E87.6 Hypokalemia (principal); I10 Essential (primary) hypertension
CPT/HCPCS: 36415; 80048; 80053; 83735

== ENCOUNTER 2022-08-10 09:56 | Outpatient (CLI) | payer MEDICARE, SELFPAY ==
[2022-08-10 10:21] VITALS: PULSE 112; O2SAT 94
[2022-08-10 10:27] VITALS: PULSE 140; O2SAT 92
[2022-08-10 10:49] LABS: CRP < 0.5 mg/dL (0.0-0.9)
[2022-08-10 11:26] LABS: Erythrocyte Sedimentation Rate 12 mm/hr (0-20)
[2022-08-12 20:12] LABS: Albumin 3.9 g/dL (3.8-4.8); Alpha 1 Globulin 0.3 g/dL (0.2-0.3); Alpha 2 Globulin 0.8 g/dL (0.5-0.9); Beta 1 Globulin 0.4 g/dL (0.4-0.6); Gamma Globulin 0.8 g/dL (0.8-1.7); Protein, Total 6.6 g/dL (6.1-8.1)
[2022-08-13 07:21] LABS: Kappa\\Lambda Light Chains 1.31 (0.26-1.65); Lambda Light Chain 16.5 mg/L (5.7-26.3)
--- NOTE | 2022-08-14 16:15 | HOMEO2EVAL ---
Evaluation was performed at [facility] - [place]
--- NOTE | 2022-08-15 05:56 | HOMEO2EVAL ---
Evaluation was performed at [facility] - [place]
[2022-08-18 14:17] LABS: Creatinine, Random Urine 147 mg/dL (20-275); Total Protein/Creatinine Ratio 218 mg/g creat (24-184)
== END 2022-08-10 09:57 | disposition home or self-care (01) ==
PROVIDERS: PCP Internal Medicine; Visit Provider Internal Medicine
DX: N18.2 Chronic kidney disease, stage 2 (mild) (principal); R63.4 Abnormal weight loss; J44.9 Chronic obstructive pulmonary disease, unspecified; R06.00 Dyspnea, unspecified
CPT/HCPCS: 36415; 82570; 83883; 84155; 84156; 84165; 84166; 85652; 86038; 86140; 86334; 94618

== ENCOUNTER 2022-08-14 09:03 | Outpatient (CLI) | payer MEDICARE, SELFPAY ==
[2022-08-10 10:25] VITALS: PULSE 134; O2SAT 95
[2022-08-10 10:27] VITALS: PULSE 138; O2SAT 95
[2022-08-10 10:29] VITALS: PULSE 140; O2SAT 92
--- NOTE | ~2022-08-14 | US_ITS ---
Abdominal Sonogram: Real-time sonographic imaging of the abdomen was performed. Clinical History: Weight loss Findings: The liver appears normal with no evidence of mass lesion or bile duct dilatation. Main por cami vein demonstrates normal direction of flow. The spleen is normal in size without evidence of foca l lesion. The gallbladder is well distended, and appears normal with no evidence of gallstone or wal l thickening. The common bile duct measures 3 mm. The visualized pancreas, aorta, and IVC are unrema rkable. The right kidney measures 7.8 cm in length and the left kidney measures 8.4 cm. There is no hydronephrosis or renal calculus. Impression: Unremarkable abdominal ultrasound. Reviewed, dictated and finalized at location . ERN ASSEMBLER Impression: Unremarkable abdominal ultrasound.
[2022-08-14 09:50] LABS: Total Protein Urine Random 9.1 mg/dL (0.0-11.9)
[2022-08-14 09:52] LABS: Total Protein Urine 24 Hr 46 mg/24hr (0-149); Total Volume 24 Hour Urine 500 ml
== END 2022-08-14 09:04 | disposition home or self-care (01) ==
LOC: CHSIMG 09:05
PROVIDERS: PCP Internal Medicine; Visit Provider Internal Medicine
DX: N18.2 Chronic kidney disease, stage 2 (mild) (principal); R63.4 Abnormal weight loss; R80.9 Proteinuria, unspecified
CPT/HCPCS: 76700; 81050; 84156

== ENCOUNTER 2023-01-21 13:25 | Emergency (ER) | payer MEDICARE, SELFPAY ==
--- NOTE | ~2023-01-21 | XR_ITS ---
EXAMINATION: XR wrist LT min 3V DATE: 01/21/2023 14:21 INDICATION: Left wrist pain. TECHNIQUE: 4 views of left wrist were obtained. COMPARISON: None. FINDINGS: Bone alignment is normal. No fracture. There is mild osteoarthritis of triscaphe joint and severe osteoarthritis of first carpometacarpal joint. IMPRESSION: 1. Polyarticular osteoarthritis. Reviewed, dictated and finalized at location E.
[2023-01-21 13:25] VITALS: BP 160/91; PULSE 105; RESP 20; TEMP 37.2; O2SAT 95
--- NOTE | 2023-01-21 14:06 | ED.EXTPRO ---
HPI - Extremity Problem General Chief complaint: Extremity Problem,Nontraumatic Stated complaint: left wrist pain Time Seen by Provider: 01/21/23 13:46 Source: patient and family Mode of arrival: ambulatory Limitations: no limitations History of Present Illness HPI Narrative: 77-year-old white female complains of Left wrist pain swelling and warmness since last night no history of trauma. patient presents with her daughter who is very helpful with the history. Daughter says she just started complaining that last night but patient said she has had for some time. Hurts to move it. Denies any numbness or tingling denies any other joint pain or swelling. She has history of arthritis. She took an extra Strength Tylenol last night which might help a little bit nothing taken today. Denied any problems eating or drinking voiding or stooling cough shortness of breath fever sore throat. She has had a runny nose all the time denies any problems walking talking seeing or hearing rash or itching lumps or bumps. Denies any other swelling besides her left wrist. Denies any dizziness or lightheadedness or any other complaints. Past medical history dementia social history she lives with her daughter Bhakti past surgeries she has had bilateral cataracts Related Data Allergies Allergy/AdvReac Type Severity Reaction Status Date / Time No Known Allergies Allergy Verified 06/22/22 16:17 [facility] Past Medical History Medical History COPD (chronic obstructive pulmonary disease) Dementia Seizure disorder Social History Social History Smoking packs per day: 0.5 Smoking cigarettes per day: 10.0 Years smoked: 55 Smoking pack-years: 27.50 Smoking status: Former smoker Tobacco type: cigarettes Alcohol intake: never Substance use: never Spiritual care concerns: No Exam Narrative: elderly White patient no apparent distress.? Head normocephalic, atraumatic.? Eyes conjunctiva pink sclera nonicteric.? Extraocular movements are intact.? Ears externally normal.? Oropharynx is clear with moist mucous membranes without exudates.? Neck is supple nontender no lymphadenopathy.? Back is nontender.? Lungs are clear.? Heart is regular rate and rhythm without murmurs gallops or rubs.? Chest wall is nontender.? Abdomen is soft and nontender no hepatosplenomegaly or masses no CVA tenderness no abdominal bruits.? Extremities: Left wrist mild erythema and swelling with decreased range of motion all directions diffuse tenderness. Radial pulses +2 capillary refills normal.? Skin is warm and dry without rashes or lesions.? Neurological patient is alert and oriented x4.? Motor and sensory grossly intact.? Gait is normal. Course Vital Signs Vital signs: Vital Signs Temperature 37.2 C 01/21/23 13:25 Pulse Rate 105 H 01/21/23 13:25 Respiratory Rate 20 01/21/23 13:25 Blood Pressure 160/91 H 01/21/23 13:25 Pulse Oximetry 95 01/21/23 13:25 Oxygen Delivery Room Air 01/21/23 13:25 Temperature 37.2 C 01/21/23 13:25 Pulse Rate 105 H 01/21/23 13:25 Respiratory Rate 20 01/21/23 13:25 Blood Pressure 160/91 H 01/21/23 13:25 Pulse Oximetry 95 01/21/23 13:25 Oxygen Delivery Room Air 01/21/23 13:25 MDM - Extremity (Nontraumatic) MDM Narrative Medical decision making narrative: Patient was placed in room 3 history and physical was performed with her daughter present Bhakti. a cock-up splint was applied which relieved her pain. Labs were drawn for CBC CMP uric acid CRP and sed rate. C reactive protein is elevated at 1.5. CMP, CBC and uric acid were normal. sed rate was pending at the time discharge. Independent Historian: daughter? Differential Dx includes but not limited to: fracture dislocation inflammatory arthritis Medications were Reviewed:? no medication Medications mago
[2023-01-21 14:40] LABS: Hematocrit 42.4 % (35.0-42.0); Hemoglobin 13.7 g/dL (11.7-13.8); Mean Corpuscular HGB Conc 32.3 g/dL (32.0-36.0); Mean Corpuscular Hemoglobin 29.2 pg (27.0-31.0); Mean Corpuscular Volume 90.4 fL (78.0-102.0); Mean Platelet Volume 8.4 fl (9.2-11.8); Platelet Count Result 240 K/mm3 (150-420); Red Blood Count 4.69 M/mm3 (4.20-5.40); Red Cell Distribution Width 12.5 % (11.6-14.4)
--- NOTE | 2023-01-21 14:43 | PC.NURSE ---
wrist splint applied per sunni rousseau. pt not comfortable with it on. dr lam in with patient and daughter.
--- NOTE | 2023-01-21 14:55 | PC.NURSE ---
wrist splint reapplied. pt comfortable at this time.
[2023-01-21 15:00] LABS: Alanine Aminotransferase 20 U/L (14-59); Albumin Level 3.5 g/dL (3.4-5.0); Alkaline Phosphatase 86 U/L (46-116); Anion Gap 8 mmol/L (8-16); Aspartate Amino Transferase 18 U/L (15-37); Bilirubin,Total 0.6 mg/dL (0.00-1.00); Blood Urea Nitrogen 15 mg/dL (7-18); Calcium 9.1 mg/dL (8.5-10.1); Carbon Dioxide 30 mmol/L (21-32); Chloride 101 mmol/L (98-108); Estimated CRCL calculation 24 ml/min; Estimated Glomerular Filt Rate 58; Glucose 110 mg/dL (70-99); Osmolality Calculated 289 mOsm/kg (285-295); Potassium 4.3 mmol/L (3.5-5.1); Sodium 139 mmol/L (136-145); Total Protein 7.3 g/dL (6.4-8.2)
[2023-01-21 15:01] LABS: CRP 1.5 mg/dL (0.0-0.9)
[2023-01-21 15:18] VITALS: BP 143/84; PULSE 98; RESP 16; O2SAT 95
[2023-01-21 15:47] LABS: Erythrocyte Sedimentation Rate 22 mm/hr (0-20)
== END 2023-01-21 15:25 | disposition home or self-care (01) ==
PROVIDERS: Emergency Provider Emergency Medicine; PCP Internal Medicine
DX: M19.032 Primary osteoarthritis, left wrist (principal); J44.9 Chronic obstructive pulmonary disease, unspecified; F03.90 Unspecified dementia, unspecified severity, without behavioral disturbance, psychotic disturbance, mood disturbance, and anxiety; Z87.891 Personal history of nicotine dependence
CPT/HCPCS: 29125; 36415; 73110; 80053; 84550; 85027; 85652; 86140; 99283

== ENCOUNTER 2023-08-30 12:41 | Outpatient (NON) | payer MEDICARE, MEDICAID, SELFPAY ==
[2023-08-30 13:10] LABS: Basophils Absolute Auto 0.04 K/mm3 (0.00-0.10); Basophils Percent Auto 0.5 % (0.0-1.0); Eosinophils Absolute Auto 0.18 K/mm3 (0.02-0.50); Eosinophils Percent Auto 2.3 % (1.0-6.0); Hematocrit 47.4 % (35.0-42.0); Hemoglobin 13.9 g/dL (11.7-13.8); Immature Granulocyte Absolute 0.02 K/mm3 (0.00-0.00); Immature Granulocyte Percent A 0.3 % (0.0-0.0); Lymphocytes Absolute Auto 1.72 K/mm3 (1.10-4.50); Lymphocytes Percent Auto 22.1 % (18.0-42.0); Mean Corpuscular HGB Conc 29.3 g/dL (32.0-36.0); Mean Corpuscular Hemoglobin 27.6 pg (27.0-31.0); Mean Platelet Volume 8.8 fl (9.2-11.8); Monocytes Absolute Auto 0.73 K/mm3 (0.10-0.90); Monocytes Percent Auto 9.4 % (2.0-11.0); Neutrophils Absolute Auto 5.1 K/mm3 (1.7-7.2); Neutrophils Percent Auto 65.4 % (50.0-70.0); Platelet Count Result 346 K/mm3 (150-420); Red Blood Count 5.04 M/mm3 (4.20-5.40); Red Cell Distribution Width 13.1 % (11.6-14.4); White Blood Count 7.8 K/mm3 (4.8-10.8)
[2023-08-30 14:04] LABS: Alanine Aminotransferase 19 U/L (14-59); Albumin Level 3.4 g/dL (3.4-5.0); Alkaline Phosphatase 85 U/L (46-116); Anion Gap 9 mmol/L (8-16); Aspartate Amino Transferase 19 U/L (15-37); Bilirubin,Total 0.5 mg/dL (0.00-1.00); Blood Urea Nitrogen 11 mg/dL (7-18); Calcium 8.7 mg/dL (8.5-10.1); Carbon Dioxide 33 mmol/L (21-32); Chloride 102 mmol/L (98-108); Cholesterol 285 mg/dL (0-200); Estimated Glomerular Filt Rate 53; Free T3 3.03 pg/mL (2.18-3.98); Free T4 Free Thyroxine 1.09 ng/dL (0.76-1.46); Glucose 83 mg/dL (70-99); HDL Direct 89 mg/dL (40-60); LDL Cholesterol Calculated 172 mg/dL (<130); Osmolality Calculated 296 mOsm/kg (285-295); Potassium 4.6 mmol/L (3.5-5.1); Sodium 144 mmol/L (136-145); Thyroid Stimulating Hormone 2.49 uIU/mL (0.36-3.74); Total Protein 6.7 g/dL (6.4-8.2); Triglycerides 120 mg/dL (0-150); Vitamin B12 376 pg/mL (193-986)
[2023-09-02 04:42] LABS: Vitamin D 25 Hydroxy 12 ng/mL (30-100)
== END 2023-08-30 12:42 | disposition home or self-care (01) ==
LOC: CHSLAB 12:44
PROVIDERS: Visit Provider Internal Medicine
DX: R63.6 Underweight (principal); I10 Essential (primary) hypertension; E78.2 Mixed hyperlipidemia; E53.8 Deficiency of other specified B group vitamins; M81.0 Age-related osteoporosis without current pathological fracture
CPT/HCPCS: 80053; 80061; 82306; 82607; 84439; 84443; 84481; 85025

== ENCOUNTER 2023-11-24 19:57 | Observation (INO) | payer MEDICARE, MEDICAID, SELFPAY ==
--- NOTE | ~2023-11-24 | XR_ITS ---
EXAMINATION: XR chest 1V portable Exam Date/Time: 11/24/2023 20:48 CDT HISTORY: Generalized weakness Comparison: 06/28/2022. RESULT: Lines, tubes, and devices: None. Lungs and pleura: Emphysematous change. No focal consolidation, pleural effusion, or pneumothorax. Cardiomediastinal silhouette: Stable. Dilated central pulmonary arteries as can be seen with pulmona ry arterial hypertension. Other: No acute osseous or upper abdominal finding. IMPRESSION: No acute cardiopulmonary process. Reviewed, dictated and finalized at location K.
--- NOTE | ~2023-11-24 | CT_ITS ---
EXAMINATION: CT brain wo con DATE: 11/24/2023 20:59 INDICATION: dizziness. HX OF ALZHEIMER'S. . TECHNIQUE: Computed tomography (CT) of the head was performed without intravenous contrast. The mA wa s adjusted according to patient size. Iterative reconstruction technique was employed. The dose-lengt h product was 605.33 mGy-cm. COMPARISON: None. FINDINGS: No acute intracranial hemorrhage or extra-axial fluid collection. No hydrocephalus, mass, or herniation. No acute ischemic infarct. Unremarkable dural venous sinus attenuation. No acute osseous abnormality. Minimal right mastoid fluid, the remaining aerated spaces are clear. Moderate atrophy and chronic white matter change. Atherosclerotic intracranial calcification. Bilater al lens replacements. Focal old right basal ganglia lacunar infarct. IMPRESSION: No acute intracranial process. Reviewed, dictated and finalized at location K.
[2023-11-24 20:00] VITALS: BP 149/94; PULSE 87; RESP 18; TEMP 36.8; O2SAT 94
--- NOTE | 2023-11-24 20:15 | ECG_ITS ---
SEE SCANNED COPY FOR CONFIRMED REPORT MTDD
--- NOTE | 2023-11-24 20:20 | ED.DIZZY ---
HPI - Dizziness General Chief Complaint: Dizziness Stated Complaint: Dizzy/Weak Time Seen by Provider: 11/24/23 20:03 Source: patient and family Mode of arrival: wheelchair Limitations: altered mental status History of Present Illness HPI Narrative: this is a 70-year-old female from [facility] that presents with some dizziness it started this morning patient has a history of dementia and hypertension history of COPD. Currently has a no symptoms but has been feeling dizzy throughout the day and denies having any fever chills no chest pain no shortness of breath no abdominal pain no nausea vomiting no dysuria. MD elicited complaint: dizziness and lightheadedness Onset (ago): hour(s) Timing: gradual onset Severity: moderate Description: sense of movement Related Data Home Medications Medication Instructions Recorded Confirmed calcitriol 0.25 mcg capsule See Rx Instructions .Route .COMPLEX 11/24/23 11/24/23 ergocalciferol (vitamin D2) 1,250 1,250 mcg PO WEEKLY 11/24/23 11/24/23 mcg (50,000 unit) capsule multivitamin with minerals-folic 1 tablet PO DAILY 11/24/23 11/24/23 acid 80 mcg chewable tablet (Centrum Adult 50 Plus) trazodone 50 mg tablet 50 mg PO HS 11/24/23 11/24/23 Allergies Allergy/AdvReac Type Severity Reaction Status Date / Time No Known Allergies Allergy Verified 06/22/22 16:17 Review of Systems Review of Systems: All systems reviewed & are unremarkable except as noted in HPI and below PMFSH Past Medical History Medical History (Updated 11/25/23 @ 12:49 by Anastacio Redman APRN) COPD (chronic obstructive pulmonary disease) Dementia Seizure disorder Social History Social History Smoking packs per day: 0.5 Smoking cigarettes per day: 10.0 Years smoked: 55 Smoking pack-years: 27.50 Smoking status: Former smoker Tobacco type: cigarettes Smoking end date: 11/06/14 Alcohol intake: never Substance use: never Spiritual care concerns: Yes (Amish) Exam Const: General: no acute distress and confusion Nutritional Appearance: thin Orientation/consciousness: patient oriented x3 Limitations: no limitations HENMT: Head: normal to inspection Eyes: Conjunctivae: conjunctivae normal Pupils: Equal, round and reactive pupils present Neck: Neck: normal visual inspection Chest: Chest palpation & inspection: normal inspection of the chest Resp: Effort & Inspection: normal respiratory effort Auscultation: clear to auscultation bilaterally Cardio: Rate: regular rate Rhythm: regular rhythm GI: GI Palp: Yes Soft to palpation Auscultation: normal bowel sounds : General: Yes bladder normal to palpation Urinary Catheter: Urinary Catheter: patent and draining Back/Spine/Pelvis: Back: no CVA tenderness Skin: General skin exam: normal color Rashes: no rashes Wounds: no wounds Neuro: General: moves all extremities, no meningeal signs and no focal motor deficits Cranial nerves: Yes Nystagmus not present Speech: normal speech Extrem: General: normal to inspection and no clubbing, cyanosis or edema Psych: Affect: Anxious affect present Course Course Emergency Course: Patient started on IV fluids with normal saline, EKG obtained and reviewed. CT scan of the brain was obtained and reviewed Chest x-ray performed and reviewed with patient and family. Labs obtained as well as urinalysis Vital Signs Vital signs: Vital Signs Temperature 36.8 C 11/24/23 20:00 Pulse Rate 87 11/24/23 20:00 Respiratory Rate 18 11/24/23 20:00 Blood Pressure 149/94 H 11/24/23 20:00 Pulse Oximetry 94 11/24/23 20:00 Oxygen Delivery Room Air 11/24/23 20:00 Temperature 36.3 C L 11/26/23 08:00 Pulse Rate 90 11/26/23 08:00 Respiratory Rate 14 11/26/23 08:00 Blood Pressure 133/79 11/26/23 08:00 Pulse Oximetry 94 11/26/23 08:00 Oxygen Delivery Room Air 11/26/23 08:00
[2023-11-24 20:44] LABS: Basophils Absolute Auto 0.05 K/mm3 (0.00-0.10); Basophils Percent Auto 0.7 % (0.0-1.0); Eosinophils Absolute Auto 0.11 K/mm3 (0.02-0.50); Eosinophils Percent Auto 1.6 % (1.0-6.0); Hematocrit 41.6 % (35.0-42.0); Hemoglobin 12.8 g/dL (11.7-13.8); Immature Granulocyte Absolute 0.02 K/mm3 (0.00-0.00); Immature Granulocyte Percent A 0.3 % (0.0-0.0); Lymphocytes Absolute Auto 0.95 K/mm3 (1.10-4.50); Lymphocytes Percent Auto 14.1 % (18.0-42.0); Mean Corpuscular HGB Conc 30.8 g/dL (32-36); Mean Corpuscular Hemoglobin 28.4 pg (27.0-31.0); Mean Corpuscular Volume 92.4 fL (78.0-102.0); Mean Platelet Volume 8.3 fl (9.2-11.8); Monocytes Absolute Auto 0.61 K/mm3 (0.10-0.90); Monocytes Percent Auto 9.1 % (2.0-11.0); Neutrophils Absolute Auto 4.99 K/mm3 (1.70-7.20); Neutrophils Percent Auto 74.2 % (50.0-70.0); Platelet Count Result 261 K/mm3 (150-420); Red Cell Distribution Width 12.7 % (11.6-14.4); White Blood Count 6.7 K/mm3 (4.8-10.8)
[2023-11-24 20:45] LABS: Appearance Urine Clear (Clear); Bilirubin Urine Negative (Negative); Blood Urine Negative (Negative); Color Urine Light Yellow (Yellow); Glucose Urine UA Negative (Negative); Ketones Urine Negative (Negative); Leukocyte Esterase Ur Negative LEU/UL (Negative); Nitrate Urine Negative (Negative); Protein Urine Negative (Negative); Urobilinogen Urine 0.2 mg/dL (0.2-1.0)
[2023-11-24 20:55] LABS: Add Urine Microscopic? NO
[2023-11-24] MEDS: SODIUM CHLORIDE 0.9% IV 1,000 ML 999 ML IV CONT (20:57)
[2023-11-24 20:59] LABS: INR 0.9; Partial Thromboplastin Time 25.9 Sec (23.9-30.70); Prothrombin Time 10.4 Seconds (9.50-12.1)
--- NOTE | 2023-11-24 21:00 | PC.NURSE ---
Pt is extremely anxious when getting up to use commode and assist x1 back to bed, she keeps repeating about wanting to go home c daughter and not stay in hospital. Pt is confused as to why she is here and needs reminders frequently and reorientation.
[2023-11-24 21:07] VITALS: BP 146/83; PULSE 85; RESP 20; O2SAT 94
--- NOTE | 2023-11-24 21:40 | PC.NURSE ---
Pt c/o dizziness and feeling light headed when assisted to commode, then becomes SOB and anxious at times. ERP gave order for meds for pts anxiousness.
[2023-11-24] MEDS: ALPRAZolam (*CRX) 0.5 MG TABLET PO (21:57)
[2023-11-24 21:59] LABS: Alanine Aminotransferase 13 U/L (6-35); Albumin Level 3.8 g/dL (3.5-5.1); Alkaline Phosphatase 78 U/L (38-126); Anion Gap 2 mmol/L (4-12); Aspartate Amino Transferase 30 U/L (14-36); Bilirubin,Total 0.5 mg/dL (0.2-1.3); Blood Urea Nitrogen 14 mg/dL (7-17); Calcium 8.9 mg/dL (8.4-10.2); Carbon Dioxide 32 mmol/L (22-30); Chloride 102 mmol/L (98-107); Estimated CRCL calculation 27 ml/min; Estimated Glomerular Filt Rate > 60; Glucose 94 mg/dL (65-110); Lactic Acid Reflex 0.6 mmol/L (0.7-2.0); Osmolality Calculated 282 mOsm/kg (285-295); Potassium 4.1 mmol/L (3.4-5.0); Sodium 136 mmol/L (137-145)
[2023-11-24 22:11] LABS: Troponin I < 0.012 ng/mL (0.000-0.034)
[2023-11-24 22:15] VITALS: BP 128/87; PULSE 86; RESP 18; O2SAT 90
--- NOTE | 2023-11-24 22:19 | PC.NURSE ---
Pt currently resting and more calm, eyes closed, VSS at this time. POC to admit discussed c daughter.
--- NOTE | 2023-11-24 22:26 | PC.NURSE ---
Call placed to floor, spoke to charge FRANSISCO Mcgovern and pt will go to Rm [id number].
--- NOTE | 2023-11-24 22:53 | PC.NURSE ---
ED SBAR printed and reviewed. Pt is now on 2nd floor status board and ready to be admitted.
[2023-11-24 23:08] VITALS: BP 128/86; PULSE 80; RESP 18; TEMP 36.6; O2SAT 90
[2023-11-24 23:21] VITALS: BMI 15.7
--- NOTE | 2023-11-24 23:29 | ADMGEN ---
This patient, Polina Tavarez, was admitted to 2nd Floor Room 207-1. Patient oriented to hospital policies and general routines including ID bracelet, bed and alarms, visiting hours, pain management, procedures, bathroom and other care routines, personal items, smoking policy, room service/diet, and visiting hours. Information on how to activate the Rapid Response Team has been discussed. Patient are encouraged to report perceived risks to care and to ask questions if they do not understand what they are told or what they should do.
[2023-11-24] MEDS: traZODone HCL 50 MG TABLET PO (23:50)
[2023-11-24] MEDS: SODIUM CHLORIDE 0.9% IV 1,000 ML 100 ML IV CONT (23:56)
[2023-11-25] VITALS: BP 166/79; PULSE 80; RESP 19; TEMP 36.3; O2SAT 91
[2023-11-25 00:21] VITALS: O2SAT 91
[2023-11-25 05:51] LABS: Basophils Absolute Auto 0.04 K/mm3 (0.00-0.10); Basophils Percent Auto 0.7 % (0.0-1.0); Eosinophils Absolute Auto 0.16 K/mm3 (0.02-0.50); Eosinophils Percent Auto 2.7 % (1.0-6.0); Hematocrit 42.7 % (35.0-42.0); Hemoglobin 12.7 g/dL (11.7-13.8); Immature Granulocyte Absolute 0.02 K/mm3 (0.00-0.00); Immature Granulocyte Percent A 0.3 % (0.0-0.0); Lymphocytes Absolute Auto 1.17 K/mm3 (1.10-4.50); Lymphocytes Percent Auto 19.6 % (18.0-42.0); Mean Corpuscular HGB Conc 29.7 g/dL (32-36); Mean Corpuscular Hemoglobin 27.9 pg (27.0-31.0); Mean Corpuscular Volume 93.8 fL (78.0-102.0); Mean Platelet Volume 8.4 fl (9.2-11.8); Monocytes Absolute Auto 0.54 K/mm3 (0.10-0.90); Monocytes Percent Auto 9.1 % (2.0-11.0); Neutrophils Absolute Auto 4.03 K/mm3 (1.70-7.20); Neutrophils Percent Auto 67.6 % (50.0-70.0); Platelet Count Result 260 K/mm3 (150-420); Red Blood Count 4.55 M/mm3 (4.20-5.40); Red Cell Distribution Width 12.8 % (11.6-14.4)
[2023-11-25 06:51] LABS: Alanine Aminotransferase 13 U/L (6-35); Albumin Level 3.4 g/dL (3.5-5.1); Alkaline Phosphatase 72 U/L (38-126); Anion Gap 0 mmol/L (4-12); Aspartate Amino Transferase 27 U/L (14-36); Bilirubin,Total 0.5 mg/dL (0.2-1.3); Blood Urea Nitrogen 10 mg/dL (7-17); Calcium 8.4 mg/dL (8.4-10.2); Carbon Dioxide 34 mmol/L (22-30); Chloride 108 mmol/L (98-107); Estimated CRCL calculation 31 ml/min; Estimated Glomerular Filt Rate > 60; Glucose 87 mg/dL (65-110); Osmolality Calculated 292 mOsm/kg (285-295); Sodium 142 mmol/L (137-145)
[2023-11-25 08:00] VITALS: BP 137/77; PULSE 91; RESP 16; TEMP 36; O2SAT 91
[2023-11-25] MEDS: ERGOCALCIFEROL 50,000 UNITS CAPSULE 50000 UNITS PO (09:14)
[2023-11-25] MEDS: THERAPEUTIC MULTIVITAMINS/MINERALS TAB (*BKC) 1 TABLET PO (09:14)
[2023-11-25] MEDS: calcitrioL 0.25 MCG CAPSULE BY MOUTH (09:14)
[2023-11-25] MEDS: SODIUM CHLORIDE 0.9% IV 1,000 ML 100 ML IV CONT (09:18)
--- NOTE | 2023-11-25 09:37 | PM.IMHP ---
H&P: HPI History of Present Illness Date/Time: 11/25/23 12:37 Chief Complaint: Social Admit Narrative: This is a 78 year old female patient with known history of anxiety, HTN, COPD, seizure disorder and dementia who was sent to ER yesterday from assisted living facility with complaints of dizziness throughout the day. In ER patient had essentially unremarkable workup, was given IV fluids and admitted to the hospital while family is working on finding a memory care facility that would be more suited to patient's needs at this time. Patient is not a reliable historian and family not present at time of exam. Patient currently denies any symptoms. Review of Systems Review of Systems: ROS unobtainable: Yes unobtainable due to mental status (dementia) [facility] Past Medical History Medical History (Updated 11/25/23 @ 12:49 by Anastacio Redman APRN) COPD (chronic obstructive pulmonary disease) Dementia Seizure disorder Social History Social History Smoking packs per day: 0.5 Smoking cigarettes per day: 10.0 Years smoked: 55 Smoking pack-years: 27.50 Smoking status: Former smoker Tobacco type: cigarettes Smoking end date: 11/06/14 Alcohol intake: never Substance use: never Spiritual care concerns: Yes (Sabianist) Meds Home Medications and Allergies Home Medications Medication Instructions Recorded Confirmed Type calcitriol 0.25 mcg capsule See Rx Instructions .Route .COMPLEX 11/24/23 11/24/23 History ergocalciferol (vitamin D2) 1,250 1,250 mcg PO WEEKLY 11/24/23 11/24/23 History mcg (50,000 unit) capsule multivitamin with minerals-folic 1 tablet PO DAILY 11/24/23 11/24/23 History acid 80 mcg chewable tablet (Centrum Adult 50 Plus) trazodone 50 mg tablet 50 mg PO HS 11/24/23 11/24/23 History Allergies Allergy/AdvReac Type Severity Reaction Status Date / Time No Known Allergies Allergy Verified 06/22/22 16:17 Vital Signs Vital Signs - 24 hr 11/24/23 20:00 11/24/23 21:07 11/24/23 22:15 Temperature 36.8 C Pulse Rate 87 85 86 Respiratory Rate 18 20 18 Blood Pressure 149/94 H 146/83 H 128/87 Pulse Oximetry 94 94 90 Oxygen Delivery Room Air Room Air Room Air 11/24/23 23:08 11/25/23 00:21 11/25/23 00:00 Temperature 36.6 C 36.3 C L Pulse Rate 80 80 Respiratory Rate 18 19 Blood Pressure 128/86 166/79 H Pulse Oximetry 90 91 91 Oxygen Delivery Room Air Room Air Room Air Exam Const: General: no acute distress and confusion Nutritional Appearance: thin Orientation/consciousness: patient oriented x3 Limitations: no limitations HENMT: Head: normal to inspection Eyes: Conjunctivae: conjunctivae normal Pupils: Equal, round and reactive pupils present Neck: Neck: normal visual inspection Chest: Chest palpation & inspection: normal inspection of the chest Resp: Effort & Inspection: normal respiratory effort Auscultation: clear to auscultation bilaterally Cardio: Rate: regular rate Rhythm: regular rhythm GI: GI Palp: Yes Soft to palpation Auscultation: normal bowel sounds : General: Yes bladder normal to palpation Back/Spine/Pelvis: Back: no CVA tenderness Skin: General skin exam: normal color Rashes: no rashes Wounds: no wounds Neuro: General: moves all extremities, no meningeal signs and no focal motor deficits Cranial nerves: Yes Nystagmus not present Speech: normal speech Extrem: General: normal to inspection and no clubbing, cyanosis or edema Psych: Affect: Anxious affect present H&P: Results Labs Labs: Short CBC 11/24/23 11/25/23 Range/Units 20:38 05:34 WBC 6.7 6.0 (4.8-10.8) K/mm3 Hgb 12.8 12.7 (11.7-13.8) g/dL Hct 41.6 42.7 H (35.0-42.0) % Plt Count 261 260 (150-420) K/mm3 BMP 11/24/23 11/25/23 20:38 05:34 Sodium 136 L 142 Potassium 4.1 4.0 Chloride 102 108 H Carbon Dioxide 32 H 34 H BUN 14 10 Creatinine 0.90 0.80 Gl
[2023-11-25 15:50] VITALS: BP 155/93; PULSE 88; RESP 20; TEMP 36.4; O2SAT 94
--- NOTE | 2023-11-25 16:43 | PC.NURSE ---
Pt up ambulatory c assist, she can't remember to use her call lomeli, bed alarms turned on. Pt is SOB w/ exertion and noted desat to 86% when up walking to BR. Pt c/o dizziness when up walking. BP noted 167/93 when placed back to bed and sitting. Pt SPO2 recovers to 94-95% when back at rest.
[2023-11-25] MEDS: ALPRAZolam (*CRX) 0.5 MG TABLET PO (18:35)
[2023-11-25] MEDS: traZODone HCL 50 MG TABLET PO (19:59)
[2023-11-25 23:50] VITALS: BP 145/89; PULSE 93; RESP 20; TEMP 36.1; O2SAT 92
[2023-11-26 06:01] LABS: Basophils Absolute Auto 0.04 K/mm3 (0.00-0.10); Basophils Percent Auto 0.7 % (0.0-1.0); Eosinophils Absolute Auto 0.19 K/mm3 (0.02-0.50); Eosinophils Percent Auto 3.3 % (1.0-6.0); Hemoglobin 13.4 g/dL (11.7-13.8); Immature Granulocyte Absolute 0.02 K/mm3 (0.00-0.00); Immature Granulocyte Percent A 0.3 % (0.0-0.0); Lymphocytes Absolute Auto 0.91 K/mm3 (1.10-4.50); Lymphocytes Percent Auto 15.6 % (18.0-42.0); Mean Corpuscular HGB Conc 30.5 g/dL (32-36); Mean Corpuscular Hemoglobin 28.6 pg (27.0-31.0); Mean Platelet Volume 8.4 fl (9.2-11.8); Monocytes Absolute Auto 0.52 K/mm3 (0.10-0.90); Monocytes Percent Auto 8.9 % (2.0-11.0); Neutrophils Absolute Auto 4.15 K/mm3 (1.70-7.20); Neutrophils Percent Auto 71.2 % (50.0-70.0); Platelet Count Result 273 K/mm3 (150-420); Red Blood Count 4.68 M/mm3 (4.20-5.40); Red Cell Distribution Width 12.7 % (11.6-14.4); White Blood Count 5.8 K/mm3 (4.8-10.8)
[2023-11-26 07:04] LABS: Alanine Aminotransferase 14 U/L (6-35); Albumin Level 3.8 g/dL (3.5-5.1); Alkaline Phosphatase 77 U/L (38-126); Anion Gap 0 mmol/L (4-12); Aspartate Amino Transferase 29 U/L (14-36); Bilirubin,Total 0.4 mg/dL (0.2-1.3); Blood Urea Nitrogen 12 mg/dL (7-17); Calcium 9.1 mg/dL (8.4-10.2); Carbon Dioxide 37 mmol/L (22-30); Chloride 102 mmol/L (98-107); Estimated CRCL calculation 28 ml/min; Estimated Glomerular Filt Rate > 60; Glucose 90 mg/dL (65-110); Magnesium 2.1 mg/dL (1.6-2.3); Osmolality Calculated 287 mOsm/kg (285-295); Potassium 4.4 mmol/L (3.4-5.0); Sodium 139 mmol/L (137-145)
[2023-11-26 08:00] VITALS: BP 133/79; PULSE 90; RESP 14; TEMP 36.3; O2SAT 94
[2023-11-26] MEDS: THERAPEUTIC MULTIVITAMINS/MINERALS TAB (*BKC) 1 TABLET PO (09:32)
[2023-11-26] MEDS: ALPRAZolam (*CRX) 0.5 MG TABLET PO (09:32)
--- NOTE | 2023-11-26 12:35 | PM.DS ---
DS: Admitting Diagnosis Discharge Date 11/26/23 Admitting Diagnosis dementia anxiety dizziness dehydration DS: Summary Hospital Course Reason for hospitalization: dementia anxiety dizziness dehydration Hospital Course: this is a 78-year-old female who presented to the hospital on 11/24/2023 with complaints dizziness. Workup in the hospital included a head CT which was negative for any acute intracranial process. She also had a chest x-ray which was negative for any cardiopulmonary process. Initial labs showed a normal white blood cell count of 6.7, hemoglobin 12.8, sodium 136, troponin was negative,. UA was obtained and was negative for any bacteria. Patient was given IV fluids while in the ED. labs today showed a normal sodium level 139, chloride 102, otherwise unremarkable. Patient is doing much better today. We did do orthostatic blood pressures on her which did not show a drop in her blood pressure or her heart rate. She is stable for discharge at this time. We will start her on Megace see that helps with her oral intake. She will need to follow up with her primary care physician in 1 week. Final diagnosis: dehydration, dizziness Status at Discharge Cognitive/behavioral status at discharge: alert oriented x3 Functional status at discharge: uses cane/walker Overall status at discharge: patient is progressing back to baseline Time Spent with Patient Time attestation: Total time spent providing and/or coordinating discharge services: Time spent: Greater than 30 minutes Exam Narrative: General: In no acute distress, well nourished Head: atraumatic, no encephalopathy Eyes: EOMI, PERRLA, sclera clear ENT: moist mucous membranes, nasal passages clear Neck: supple, no JVD, no adenopathy, trachea midline Cardiac: Normal S1 and S2. RRR,No murmur, gallops or friction rubs, peripheral pulses intact. Respiratory: Lungs clear to auscultation, no adventitious lung sounds, on room air Gastrointestinal: soft, non-distended, non-tender, normoactive bowel sounds. : voiding without difficulty. Extremities: moves all extremities well, no edema, good ROM Skin: clean, dry, intact. No wounds or lesions. Neuro: Alert and oriented x3, cranial nerves intact, no neuro deficits. Psych: normal mood, normal affect, interactive DS: Data Data Completed and Pending Completed studies during hospitalization: chest x-ray head CT Pending studies at discharge: none Labs on day of discharge: Labs from last 24 hours 11/26/23 05:44 WBC 5.8 RBC 4.68 Hgb 13.4 Hct 44.0 H MCV 94.0 MCH 28.6 MCHC 30.5 L RDW 12.7 Plt Count 273 MPV 8.4 L Immature Gran % (Auto) 0.3 H Neut % (Auto) 71.2 H Lymph % (Auto) 15.6 L Boone % (Auto) 8.9 Eos % (Auto) 3.3 Baso % (Auto) 0.7 Lymph # (Auto) 0.91 L Boone # (Auto) 0.52 Eos # (Auto) 0.19 Baso # (Auto) 0.04 Abs Immat Gran (auto) 0.02 H Absolute Neuts (auto) 4.15 Absolute Nucleated RBC 0.00 Nucleated RBC % 0.0 Sodium 139 Potassium 4.4 Chloride 102 Carbon Dioxide 37 H Anion Gap 0 L BUN 12 Creatinine 0.90 Estim Creat Clear Calc 28 Estimated GFR > 60 Glucose 90 Calculated Osmolality 287 Calcium 9.1 Magnesium 2.1 Total Bilirubin 0.4 AST 29 ALT 14 Alkaline Phosphatase 77 Total Protein 7.0 Albumin 3.8 Procedures/Treatments: none Discharge Plan Discharge Attending physician on discharge: Sam Mccray Discharging Clinician: Lizbeth Palma Anticipated Discharge Date/Time: 11/26/23 11:15 Patient Disposition: NH Assisted/Asst Living Activity: as tolerated Diet: as tolerated Patient Instructions: Dehydration (DC) Patient Language: Indonesian Stand Alone Forms: General Discharge Information, Detention Discharge Follow-up/Referrals: Ricky Bauer MD [Primary Care Provider] - 1 week Discharge Medications: New megestrol 20 mg tablet 20 mg PO TID Qty: 90 0RF Continued trazodone 50
--- NOTE | 2023-11-26 13:35 | PC.NURSE ---
Pt discharged to [facility]. Pt's daughter and son will Transport her there. VSS. Pt alert to self and knows her daughter. Discharge instructions given to pt and daughter. Medication instructions given for Jos. Pt to follow up with PCP in 1 week.
--- NOTE | 2023-11-28 08:58 | PC.NURSE ---
Discharge to [place], did call back yesterday and wanted to know if blood pressure should be checked daily, could they get an order to do this, Lizbeth Palma advised was not needed as was not orthostatic while admitted, no other questions regarding dc instructions
== END 2023-11-26 13:20 ==
LOC: CHSED 22:13 → CHS2ND 22:48
PROVIDERS: Nurse Practitioner; Admitting Provider Internal Medicine; Emergency Provider Emergency Medicine; PCP Internal Medicine; Visit Provider Internal Medicine
DX: E86.0 Dehydration (principal); F03.90 Unspecified dementia, unspecified severity, without behavioral disturbance, psychotic disturbance, mood disturbance, and anxiety; I10 Essential (primary) hypertension; J44.9 Chronic obstructive pulmonary disease, unspecified; R42 Dizziness and giddiness; G40.909 Epilepsy, unspecified, not intractable, without status epilepticus; F41.9 Anxiety disorder, unspecified; Z87.891 Personal history of nicotine dependence
CPT/HCPCS: 36415; 70450; 71045; 80053; 81003; 83605; 83735; 84484; 85025; 85610; 85730; 93005; 96360; 96361; 97161; 97165; 99285; A9270; G0378; J7030

== ENCOUNTER 2024-01-03 11:36 | Outpatient (NON) | payer MEDICARE, MEDICAID, SELFPAY ==
[2024-01-05 01:53] LABS: Vitamin D 25 Hydroxy 143 ng/mL (30-100)
== END 2024-01-03 11:37 | disposition home or self-care (01) ==
LOC: CHSLAB 11:39
PROVIDERS: Visit Provider Internal Medicine
DX: E55.9 Vitamin D deficiency, unspecified (principal)
CPT/HCPCS: 36415; 82306

== ENCOUNTER 2024-03-02 18:25 | Inpatient (IN) | payer OTHER, SELFPAY ==
[2024-03-02] VITALS (31 sets, daily range): BP systolic 119–151; BP diastolic 72–106; PULSE 81–97; RESP 18–39; TEMP 36.6–36.7; O2SAT 71–98; BMI 14.9
--- NOTE | ~2024-03-02 | CT_ITS ---
EXAMINATION: CT diagnostic chest w con DATE: 03/02/2024 21:27 INDICATION: SHORTNESS OF BREATH. TECHNIQUE: Computed tomography (CT) of the chest was performed with 100 mL Omnipaque-350 intravenous contrast. Automated exposure control and iterative reconstruction technique were employed. The dose-l ength product was 148.38 mGy-cm. COMPARISON: None. FINDINGS: CHEST: Thoracic aorta: No significant dilation. Mild arch calcification. No dissection. Lung parenchyma and airways: Emphysematous change, otherwise clear. Stable pulmonary nodules ranging in size between 2 to 4 mm, likely granulomas. Patent airways. Thoracic inlet, axillae and chest wall: No thyroid or soft tissue mass. No axillary lymphadenopathy. Mediastinum: No mass or lymphadenopathy. Dilated central pulmonary arteries, as can be seen with pulm onary arterial hypertension. Heart and pericardium: Cardiomegaly. No pericardial effusion. Coronary artery calcifications: Absent. Pleura: No effusion or mass. Upper abdomen: Moderate distal esophageal and gastric wall edema. Thoracic bones: No acute osseous finding in the chest. Chronic T12 compression fracture. IMPRESSION: No acute thoracic process detected. Although not optimized as a CTPA, the pulmonary arteries are well opacified and no pulmonary emboli are detected. Moderate esophagitis/gastritis. Reviewed, dictated and finalized at location K. IMPRESSION: No acute thoracic process detected. Although not optimized as a CTPA, the pulmo nary arteries are well opacified and no pulmonary emboli are detected. Moderate esophagitis/gastritis.
--- NOTE | ~2024-03-02 | XR_ITS ---
EXAMINATION: XR chest 2V Exam Date/Time: 03/02/2024 19:55 CDT HISTORY: SHORTNESS OF BREATH. Comparison: 11/24/2023, 06/28/2022. RESULT: Lines, tubes, and devices: None. Lungs and pleura: Emphysematous change, otherwise clear. Cardiomediastinal silhouette: Stable. Dilated central pulmonary arteries as can be seen with pulmona ry arterial hypertension. Other: No acute osseous or upper abdominal finding. IMPRESSION: No acute cardiopulmonary process. Reviewed, dictated and finalized at location K.
--- NOTE | 2024-03-02 19:14 | ED.SOB ---
HPI - SOB/Dyspnea General Chief Complaint: Shortness of Breath/Dyspnea Stated Complaint: shortness of breath, low O2 Time Seen by Provider: 03/02/24 18:35 Source: patient Mode of arrival: ambulatory Limitations: no limitations History of Present Illness HPI Narrative: Patient is 78-year-old female who has been short of breath for the past few days. She was noted to have oxygenation in the 70s at the nursing facility. She was sent to the ER for further evaluation. MD elicited complaint: shortness of breath Pertinent past history: COPD Onset (ago): day(s) (2) Timing: intermittent Severity: moderate Exacerbating factors: nothing Relieving factors: nothing Known history of: COPD Associated symptoms: denies other symptoms Treatment prior to arrival: none Related Data Home oxygen amount: none Home Medications Medication Instructions Recorded Confirmed trazodone 50 mg tablet 50 mg PO HS 11/24/23 03/02/24 amlodipine 2.5 mg tablet 2.5 mg PO DAILY 03/02/24 03/02/24 buspirone 10 mg tablet 10 mg PO BID 03/02/24 03/02/24 escitalopram oxalate 5 mg tablet 5 mg PO DAILY 03/02/24 03/02/24 multivitamin with minerals-folic 1 tablet PO DAILY 03/02/24 03/02/24 acid 80 mcg chewable tablet (Centrum Adult 50 Plus) Allergies Allergy/AdvReac Type Severity Reaction Status Date / Time No Known Allergies Allergy Verified 03/02/24 18:47 Review of Systems Review of Systems: All systems reviewed & are unremarkable except as noted in HPI and below Constitutional: Constitutional: Reports no additional constitutional complaints Eyes: Eyes: Reports no additional eye complaints ENT: Reports system reviewed and no additional complaints, except as documented Cardiovascular: Cardiovascular: Reports no additional cardiovascular complaints Respiratory: Respiratory: Reports no additional respiratory complaints Gastrointestinal: Gastrointestinal: Reports no additional gastrointestinal complaints Genitourinary: Genitourinary: Reports no additional female genitourinary complaints Musculoskeletal: Musculoskeletal: Reports no additional musculoskeletal complaints Integumentary/Breasts: Skin/Breast: Reports system reviewed and no additional complaints, except as docu Neurologic: Reports system reviewed and no additional complaints, except as documented Psychiatric: Psychiatric: Reports no additional psychiatric complaints Endocrine: Endocrine: Reports no additional endocrine complaints Hematologic/Lymphatic: Hematologic/Lymphatic: Reports no additional hematologic/lymphatic complaints Allergic/Immunologic: Allergic/Immunologic: Reports no additional allergic/immunologic complaints PMFSH Past Medical History Medical History COPD (chronic obstructive pulmonary disease) Dementia Seizure disorder Social History Social History Smoking packs per day: 0.5 Smoking cigarettes per day: 10.0 Years smoked: 55 Smoking pack-years: 27.50 Smoking status: Former smoker Tobacco type: cigarettes Smoking end date: 11/06/14 Alcohol intake: never Substance use: never Spiritual care concerns: Yes (Zoroastrian) Exam Const: General: healthy appearing Nutritional Appearance: well nourished Orientation/consciousness: patient oriented x3 HENMT: Head: normal to inspection Ears: external ears normal Face/Nose/Sinus: Normal external nose present Eyes: Conjunctivae: conjunctivae normal Pupils: Equal, round and reactive pupils present EOM: EOMs intact bilaterally Neck: Neck: normal visual inspection Chest: Chest palpation & inspection: normal inspection of the chest Resp: Effort & Inspection: normal respiratory effort and not labored Auscultation: clear to auscultation bilaterally and no crackles Cardio: Rate: regular rate Rhythm: regular rhythm Heart sounds: no murmurs GI: Inspection: non-distended GI Palp: Yes S
--- NOTE | 2024-03-02 20:00 | PC.NURSE ---
lab and xray at the bedside
[2024-03-02 20:05] LABS: Basophils Absolute Auto 0.03 K/mm3 (0.00-0.10); Basophils Percent Auto 0.4 % (0.0-1.0); Eosinophils Percent Auto 1.4 % (1.0-6.0); Hematocrit 41.6 % (35.0-42.0); Immature Granulocyte Absolute 0.02 K/mm3 (0.00-0.00); Immature Granulocyte Percent A 0.3 % (0.0-0.0); Lymphocytes Absolute Auto 0.68 K/mm3 (1.10-4.50); Lymphocytes Percent Auto 9.5 % (18.0-42.0); Mean Corpuscular HGB Conc 31.3 g/dL (32-36); Mean Corpuscular Hemoglobin 29.3 pg (27.0-31.0); Mean Corpuscular Volume 93.9 fL (78.0-102.0); Mean Platelet Volume 8.2 fl (9.2-11.8); Monocytes Absolute Auto 0.57 K/mm3 (0.10-0.90); Neutrophils Absolute Auto 5.74 K/mm3 (1.70-7.20); Neutrophils Percent Auto 80.4 % (50.0-70.0); Platelet Count Result 326 K/mm3 (150-420); Red Blood Count 4.43 M/mm3 (4.20-5.40); White Blood Count 7.1 K/mm3 (4.8-10.8)
--- NOTE | 2024-03-02 20:11 | PC.NURSE ---
patient returned from imaging
[2024-03-02 20:15] LABS: D Dimer 0.47 mg/L (0.19-0.50)
--- NOTE | 2024-03-02 20:15 | PC.NURSE ---
patient is at 97% on 2 liters. ER provider asked that oxygen be turned off to see how patient does.
[2024-03-02 20:27] LABS: Alanine Aminotransferase 17 U/L (14-59); Albumin Level 3.1 g/dL (3.4-5.0); Alkaline Phosphatase 80 U/L (46-116); Anion Gap 4 mmol/L (4-12); Aspartate Amino Transferase 17 U/L (15-37); Bilirubin,Total 0.4 mg/dL (0.00-1.00); Blood Urea Nitrogen 10 mg/dL (7-18); Calcium 8.7 mg/dL (8.5-10.1); Carbon Dioxide 35 mmol/L (21-32); Chloride 101 mmol/L (98-108); Estimated CRCL calculation 27 ml/min; Estimated Glomerular Filt Rate > 60; Glucose 98 mg/dL (70-99); NT Pro B Type Natriuretic Pept 355 pg/mL (0-450); Osmolality Calculated 289 mOsm/kg (285-295); Potassium 4.1 mmol/L (3.5-5.1); Sodium 140 mmol/L (136-145); Total Protein 6.6 g/dL (6.4-8.2); Troponin I 7.2 ng/L (0.00-60.4)
--- NOTE | 2024-03-02 20:45 | PC.NURSE ---
Care resumed, IV started per protocol and pt to have CT scan of chest done. Spoke w/ pt and family at bedside, pt is alert x2 and needs some reorientation at times. She is noted to have shallow resp. and c/o feeling somewhat SOB. SPO2 is in place and back on at 4L NC at this time and SPO2 is 95%. Pt VSS, monitor shows SR.
--- NOTE | 2024-03-02 22:08 | ECG_ITS ---
Test Date: 2024-03-02 22:40:08 Measurements Intervals Lima Rate: 86 P: 87 LA: 160 QRS: 117 QRSD: 123 T: 59 QT: 390 QTc: 468 Interpretive Statements SINUS RHYTHM POSSIBLE LEFT ATRIAL ENLARGEMENT [-0.1mV P-WAVE IN V1/V2] INDETERMINATE AXIS RIGHT BUNDLE BRANCH BLOCK [120+ ms QRS DURATION, UPRIGHT V1, 40+ ms S IN I/aVL/V4/V5/V6] No previous ECG available for comparison Electronically Signed On 03-04-2024 15:47:09 CDT by Hank Streeter M.D.
[2024-03-02] MEDS: IPRATROPIUM 0.5 MG/ALBUTEROL SULFATE 2.5 MG AMPUL.NEB 3 ML INHALATION (22:12)
[2024-03-02] MEDS: methylPREDNISolone SOD SUCC 40 MG VIAL 80 MG IV PUSH (22:12)
--- NOTE | 2024-03-02 22:33 | PC.NURSE ---
Call placed to 2nd floor, spoke w/ head charger Ana and pt will go to Rm [id number] for 23 hr obs.
[2024-03-02 23:21] LABS: Influenza A QL RT-PCR Negative (Negative); Influenza B QL RT-PCR Negative (Negative); RSV RNA, RT-PCR Negative (Negative); SARS-CoV-2 RNA PCR Negative (Negative)
[2024-03-03] VITALS (19 sets, daily range): BP systolic 104–133; BP diastolic 56–84; PULSE 87–105; RESP 16–20; TEMP 36.1–36.6; O2SAT 84–98
[2024-03-03] MEDS: IPRATROPIUM 0.5 MG/ALBUTEROL SULFATE 2.5 MG AMPUL.NEB 3 ML INHALATION ×4 (00:17→19:00)
[2024-03-03] MEDS: traZODone HCL 50 MG TABLET PO ×2 (00:22→20:47)
--- NOTE | 2024-03-03 01:54 | PC.NURSE ---
Dr. La notified of pt's restlessness and agitation. New order for Benedryl 25 mg IVP x1.
[2024-03-03] MEDS: diphenhydrAMINE HCl INJ 50 MG/ML VIAL 25 MG IV PUSH (01:58)
[2024-03-03 05:22] LABS: Basophils Absolute Auto 0.01 K/mm3 (0.00-0.10); Basophils Percent Auto 0.1 % (0.0-1.0); Hematocrit 41.9 % (35.0-42.0); Hemoglobin 12.9 g/dL (11.7-13.8); Immature Granulocyte Absolute 0.02 K/mm3 (0.00-0.00); Immature Granulocyte Percent A 0.3 % (0.0-0.0); Lymphocytes Absolute Auto 0.22 K/mm3 (1.10-4.50); Mean Corpuscular HGB Conc 30.8 g/dL (32-36); Mean Corpuscular Volume 94.2 fL (78.0-102.0); Mean Platelet Volume 8.1 fl (9.2-11.8); Monocytes Absolute Auto 0.03 K/mm3 (0.10-0.90); Monocytes Percent Auto 0.4 % (2.0-11.0); Neutrophils Absolute Auto 6.98 K/mm3 (1.70-7.20); Neutrophils Percent Auto 96.2 % (50.0-70.0); Platelet Count Result 315 K/mm3 (150-420); Red Blood Count 4.45 M/mm3 (4.20-5.40); White Blood Count 7.3 K/mm3 (4.8-10.8)
[2024-03-03 05:39] LABS: Alanine Aminotransferase 17 U/L (14-59); Albumin Level 3.1 g/dL (3.4-5.0); Alkaline Phosphatase 85 U/L (46-116); Anion Gap 2 mmol/L (4-12); Aspartate Amino Transferase 19 U/L (15-37); Bilirubin,Total 0.3 mg/dL (0.00-1.00); Blood Urea Nitrogen 12 mg/dL (7-18); Calcium 8.7 mg/dL (8.5-10.1); Carbon Dioxide 36 mmol/L (21-32); Chloride 101 mmol/L (98-108); Estimated CRCL calculation 23 ml/min; Estimated Glomerular Filt Rate 50; Glucose 155 mg/dL (70-99); Osmolality Calculated 290 mOsm/kg (285-295); Potassium 4.3 mmol/L (3.5-5.1); Sodium 139 mmol/L (136-145); Total Protein 6.9 g/dL (6.4-8.2)
[2024-03-03] MEDS: methylPREDNISolone SOD SUCC 125 MG VIAL 80 MG IV PUSH (06:34)
[2024-03-03] MEDS: busPIRone HCL 5 MG TABLET 10 MG PO ×2 (08:35→20:47)
[2024-03-03] MEDS: ESCITALOPRAM OXALATE 5 MG TABLET PO (08:35)
[2024-03-03] MEDS: ENOXAPARIN 30 MG/0.3 ML SYRINGE SUB-Q (08:36)
[2024-03-03] MEDS: amLODIPine BESYLATE 2.5 MG TABLET PO (08:36)
[2024-03-03] MEDS: THERAPEUTIC MULTIVITAMINS/MINERALS TAB (*BKC) 1 TABLET PO (08:36)
--- NOTE | 2024-03-03 10:16 | PM.IMHP ---
H&P: HPI History of Present Illness Date/Time: 03/03/24 10:16 Chief Complaint: dyspnea, hypoxia Narrative: This is a 78 year old female patient with past history of COPD, prior smoker, anxiety, HTN and dementia who resides at [facility]. Patient lives at one of the furthest rooms from the dining room and when she walked to the dining room yesterday patient became short of breath and found to have hypoxia in the 70s. CXR and CT scan of chest unremarkable. Labs also grossly unremarkable. Patient admitted with IV steroids and nebulizer treatments. Patient denies dyspnea at rest, denies chest pain, denies nausea or vomiting. Review of Systems Review of Systems: All systems reviewed & are unremarkable except as noted in HPI and below ROS unobtainable: Yes unobtainable due to mental status (advanced dementia) [facility] Past Medical History Medical History COPD (chronic obstructive pulmonary disease) Dementia Seizure disorder Social History Social History Smoking packs per day: 1 Smoking cigarettes per day: 20.0 Years smoked: 15 Smoking pack-years: 15.00 Smoking status: Former smoker Tobacco type: cigarettes Second hand tobacco smoke exposure: No Smoking end date: 11/06/14 Alcohol intake: never Substance use: never Do You Feel Safe in your Home?: Yes Lack of Transportation: No Lack of Food: Never True Current Housing: I Have Housing Concerned About Future Housing: No Difficulty Paying Gas/Electric Bills: No Difficulty Paying for Meds: No Currently Unemployed: No Education: Don't Know Difficulty w/ Childcare or Family Care: No Spiritual care concerns: No Meds Home Medications and Allergies Home Medications Medication Instructions Recorded Confirmed Type trazodone 50 mg tablet 50 mg PO HS 11/24/23 03/02/24 History amlodipine 2.5 mg tablet 2.5 mg PO DAILY 03/02/24 03/02/24 History buspirone 10 mg tablet 10 mg PO BID 03/02/24 03/02/24 History escitalopram oxalate 5 mg tablet 5 mg PO DAILY 03/02/24 03/02/24 History multivitamin with minerals-folic 1 tablet PO DAILY 03/02/24 03/02/24 History acid 80 mcg chewable tablet (Centrum Adult 50 Plus) Allergies Allergy/AdvReac Type Severity Reaction Status Date / Time No Known Allergies Allergy Verified 03/02/24 18:47 Vital Signs Vital Signs - 24 hr 03/02/24 18:25 03/02/24 18:37 03/02/24 18:35 Temperature 36.7 C Pulse Rate 94 Respiratory Rate 20 Blood Pressure 145/86 H Pulse Oximetry 71 L 97 96 Oxygen Delivery Room Air Nasal Cannula Nasal Cannula Oxygen Flow Rate 4 4 03/02/24 18:40 03/02/24 18:35 03/02/24 19:01 Temperature Pulse Rate 81 Respiratory Rate Blood Pressure Pulse Oximetry 96 97 Oxygen Delivery Nasal Cannula Nasal Cannula Oxygen Flow Rate 4 2 03/02/24 18:46 03/02/24 18:47 03/02/24 19:00 Temperature Pulse Rate 89 90 87 Respiratory Rate 24 H 19 32 H Blood Pressure 128/102 H Pulse Oximetry 97 97 97 Oxygen Delivery Oxygen Flow Rate 03/02/24 19:02 03/02/24 19:15 03/02/24 19:16 Temperature Pulse Rate 90 86 88 Respiratory Rate 30 H 23 H 18 Blood Pressure 119/84 128/79 Pulse Oximetry 96 97 97 Oxygen Delivery Oxygen Flow Rate 03/02/24 19:30 03/02/24 19:31 03/02/24 19:45 Temperature Pulse Rate 90 90 85 Respiratory Rate 25 H 26 H 39 H Blood Pressure 143/85 H Pulse Oximetry 96 96 95 Oxygen Delivery Oxygen Flow Rate 03/02/24 19:46 03/02/24 20:00 03/02/24 20:10 Temperature Pulse Rate 86 Respiratory Rate 23 H Blood Pressure 125/106 H 132/83 Pulse Oximetry 95 96 Oxygen Delivery Oxygen Flow Rate 03/02/24 20:11 03/02/24 20:15 03/02/24 20:16 Temperature Pulse Rate 90 89 88 Respiratory Rate 21 H 32 H 27 H Blood Pressure 146/94 H 151/87 H Pulse Oximetry 98 96 9
--- NOTE | 2024-03-03 10:52 | HOMEO2EVAL ---
Evaluation was performed at [facility] Home Oxygen Evaluation RC: Home Oxygen (O2) Evaluation Start: 03/03/24 09:37 Freq: ONCE Status: Active Protocol: RPE Activity Type Activity Date Activity User E-sign Co-sign Detail Recorded Client Recorded Date Recorded By Document 03/03/24 10:30 KRM [id number] 03/03/24 10:52 KRM Document 03/03/24 10:34 KRM [id number] 03/03/24 10:52 KRM Document 03/03/24 10:35 KRM [id number] 03/03/24 10:52 KRM Document 03/03/24 10:37 KRM [id number] 03/03/24 10:52 KRM Document 03/03/24 10:39 KRM [id number] 03/03/24 10:52 KRM 03/03/24 03/03/24 03/03/24 10:30 10:34 10:35 Home O2 Evaluation [Oxygen] -Test Phase Resting Exercise Exercise -Oxygen Delivery Room Air Room Air Nasal Cannula -Oxygen Flow Rate (L/min) 1 [Pulse Oximetry] -Pulse Oximetry (90-100 %) 90 84 L 85 L [Pulse Rate] -Pulse Rate (60-100 beats/min) 87 105 H 105 H [Evaluation] -Activity Tolerance Fair Fair [Exercise] -Ambulation Distance (feet) -Ambulation Distance (meters) [Comments] -Home Oxygen Evaluation Comments [Charges] -Evaluation Charges 03/03/24 03/03/24 10:37 10:39 Home O2 Evaluation [Oxygen] -Test Phase Exercise Exercise -Oxygen Delivery Nasal Cannula Nasal Cannula -Oxygen Flow Rate (L/min) 2 3 [Pulse Oximetry] -Pulse Oximetry (90-100 %) 86 L 90 [Pulse Rate] -Pulse Rate (60-100 beats/min) 104 H 103 H [Evaluation] -Activity Tolerance Fair Fair [Exercise] -Ambulation Distance (feet) 100 -Ambulation Distance (meters) 30.47 [Comments] -Home Oxygen Evaluation Comments Room air at rest, 3lpm o2 with activity. [Charges] -Evaluation Charges O2 Evaluation Charge
--- NOTE | 2024-03-03 20:30 | PC.NURSE ---
Spoke with Daughter, Bhakti. Daughter states she wants to try to keep her mom at the [place] assisted living facility if possible.
[2024-03-03] MEDS: methylPREDNISolone SOD SUCC 125 MG VIAL 40 MG IV PUSH (20:45)
[2024-03-03] MEDS: ACETAMINOPHEN 325 MG TABLET 650 MG PO (20:47)
[2024-03-03] MEDS: QUEtiapine FUMARATE 25 MG TABLET PO (20:47)
[2024-03-03] MEDS: ONDANSETRON INJ 4 MG/2 ML VIAL IV PUSH (20:47)
[2024-03-04] VITALS (11 sets, daily range): BP systolic 95–102; BP diastolic 59–60; PULSE 89–109; RESP 16–22; TEMP 36.1–36.5; O2SAT 88–96
[2024-03-04] MEDS: IPRATROPIUM 0.5 MG/ALBUTEROL SULFATE 2.5 MG AMPUL.NEB 3 ML INHALATION ×3 (05:29→16:55)
[2024-03-04 05:45] LABS: Basophils Absolute Auto 0.02 K/mm3 (0.00-0.10); Basophils Percent Auto 0.1 % (0.0-1.0); Hematocrit 38.1 % (35.0-42.0); Hemoglobin 11.9 g/dL (11.7-13.8); Immature Granulocyte Absolute 0.11 K/mm3 (0.00-0.00); Immature Granulocyte Percent A 0.6 % (0.0-0.0); Lymphocytes Percent Auto 1.7 % (18.0-42.0); Mean Corpuscular HGB Conc 31.2 g/dL (32-36); Mean Corpuscular Hemoglobin 29.5 pg (27.0-31.0); Mean Corpuscular Volume 94.3 fL (78.0-102.0); Mean Platelet Volume 8.2 fl (9.2-11.8); Monocytes Absolute Auto 0.22 K/mm3 (0.10-0.90); Monocytes Percent Auto 1.2 % (2.0-11.0); Neutrophils Absolute Auto 17.26 K/mm3 (1.70-7.20); Neutrophils Percent Auto 96.4 % (50.0-70.0); Platelet Count Result 330 K/mm3 (150-420); Red Blood Count 4.04 M/mm3 (4.20-5.40); Red Cell Distribution Width 13.2 % (11.6-14.4); White Blood Count 17.9 K/mm3 (4.8-10.8)
[2024-03-04 06:02] LABS: Alanine Aminotransferase 14 U/L (14-59); Albumin Level 2.7 g/dL (3.4-5.0); Alkaline Phosphatase 73 U/L (46-116); Anion Gap 4 mmol/L (4-12); Aspartate Amino Transferase 16 U/L (15-37); Bilirubin,Total 0.2 mg/dL (0.00-1.00); Blood Urea Nitrogen 21 mg/dL (7-18); Calcium 8.7 mg/dL (8.5-10.1); Carbon Dioxide 34 mmol/L (21-32); Chloride 101 mmol/L (98-108); Estimated CRCL calculation 20 ml/min; Estimated Glomerular Filt Rate 41; Glucose 137 mg/dL (70-99); Magnesium 1.9 mg/dL (1.8-2.4); Osmolality Calculated 293 mOsm/kg (285-295); Potassium 4.9 mmol/L (3.5-5.1); Sodium 139 mmol/L (136-145); Total Protein 6.1 g/dL (6.4-8.2)
[2024-03-04] MEDS: SODIUM CHLORIDE 0.9% IV 1,000 ML 100 ML IV CONT (08:27)
[2024-03-04] MEDS: ENOXAPARIN 30 MG/0.3 ML SYRINGE SUB-Q (08:41)
[2024-03-04] MEDS: AZITHROMYCIN 250 MG TABLET 500 MG PO (08:42)
[2024-03-04] MEDS: amLODIPine BESYLATE 2.5 MG TABLET PO (08:43)
[2024-03-04] MEDS: THERAPEUTIC MULTIVITAMINS/MINERALS TAB (*BKC) 1 TABLET PO (08:43)
[2024-03-04] MEDS: busPIRone HCL 5 MG TABLET 10 MG PO ×2 (08:43→21:00)
[2024-03-04] MEDS: ESCITALOPRAM OXALATE 5 MG TABLET PO (08:43)
[2024-03-04] MEDS: methylPREDNISolone SOD SUCC 125 MG VIAL 40 MG IV PUSH ×2 (08:44→21:01)
--- NOTE | 2024-03-04 09:40 | PM.IMPN ---
Progress Note: A&P Assessment and Plan (1) COPD (chronic obstructive pulmonary disease): Qualifiers: COPD type: unspecified COPD Qualified Code(s): J44.9 - Chronic obstructive pulmonary disease, unspecified Code(s): J44.9 - Chronic obstructive pulmonary disease, unspecified Status: Acute Assessment and Plan: Admitted to Med Tele but ok to DC tele Due to hypoxia, new oxygen need and severity of dementia, plan is to discharge to residential Accepted at [facility] pending insurance/financial processing Nebs and steroids ordered Added azithromycin orally today (2) Hypoxia: Code(s): R09.02 - Hypoxemia Status: Acute Assessment and Plan: Respiratory Therapy did Six Minute Walk Test and requires 3 liters/minute with activity. Saturation 90% on room air at rest, may need continuous overnight again tonight (3) Hypertension: Code(s): I10 - Essential (primary) hypertension Status: Acute Assessment and Plan: Blood pressures reviewed 03/04, amlodipine was started on admission Amlodipine 2.5 mg daily. Will hold. Blood pressure is 95/59, HR 94 Slight TIFFANIE on labs today Will give 1 L of fluids (4) Anxiety: Code(s): F41.9 - Anxiety disorder, unspecified Status: Acute Assessment and Plan: Continue home medication Reported history of opposite reaction to benzodiazepines (5) Dementia: Qualifiers: Dementia behavioral or psychological symptom: with anxiety Dementia severity: mild Dementia type: unspecified type Qualified Code(s): F03.A4 - Unspecified dementia, mild, with anxiety Code(s): F03.90 - Unspecified dementia, unspecified severity, without behavioral disturbance, psychotic disturbance, mood disturbance, and anxiety Status: Acute Assessment and Plan: Significant short and supervisor intermediates memory loss Underweight Very forgetful Not able to return to assisted living status with new oxygen demand Arrangements for residential placement are being pursued (6) Severe protein-calorie malnutrition: Code(s): E43 - Unspecified severe protein-calorie malnutrition Status: Acute Assessment and Plan: BMI 14.9 thin and cachectic appearing advanced dementia as likely cause Add nutritional supplements General diet, ensure Plan 78-year-old female who came with hypoxia on room air. History of COPD prior smoker with a new oxygen requirement. She is being treated for possible COPD exacerbation. UA pending. Slight bump in her creatinine today with a low blood pressure. Holding her amlodipine and giving her with her fluid. Likely ready for discharge in the next 1-2 days. Subjective Date/time seen: 03/04/24 09:40 Interval history: This is a 78 year old female patient with past history of COPD, prior smoker, anxiety, HTN and dementia who resides at [facility]. Patient lives at one of the furthest rooms from the dining room and when she walked to the dining room yesterday patient became short of breath and found to have hypoxia in the 70s. 03/04: Patient is sitting in bed with 2 L oxygen eating breakfast. She does not appear in acute distress. She is a poor historian with her underlying dementia and is unable to tell me why she initially came to the hospital. She has no current complaints. Review of Systems Review of Systems: ROS unobtainable: Yes unobtainable due to mental status (advanced dementia) Exam Narrative: General: Elderly, thin, frail, appears stated age. HEENT: normocephalic, atraumatic. Mucous membranes moist. EOMI, PERRLA, bilateral sclera anicteric, no conjunctival injection. Neck supple without JVD, lymphadenopathy, or bruit. Respiratory: clear to auscultation bilaterally. No rales/rhonic/wheezes. Cardiovascular: Regular rate and rhythm, normal S1-S2 upon auscultation. No murmurs, rubs, or clicks. PMI is nondisplaced, capillary refill less
[2024-03-04 14:34] LABS: Add Urine Microscopic? NO; Appearance Urine Clear (Clear); Bilirubin Urine Negative (Negative); Blood Urine Negative (Negative); Color Urine Yellow (Yellow); Glucose Urine UA Negative (Negative); Ketones Urine Negative (Negative); Leukocyte Esterase Ur Negative (Negative); Nitrate Urine Negative (Negative); Protein Urine Negative (Negative); Specific Grav Ur 1.015 (1.010-1.020); Urobilinogen Urine 0.2 mg/dL (0.2-1.0)
[2024-03-04] MEDS: traZODone HCL 50 MG TABLET PO (21:01)
[2024-03-04] MEDS: QUEtiapine FUMARATE 25 MG TABLET PO (21:01)
[2024-03-04] MEDS: ONDANSETRON INJ 4 MG/2 ML VIAL IV PUSH (21:02)
[2024-03-04] MEDS: ACETAMINOPHEN 325 MG TABLET 650 MG PO (21:02)
[2024-03-05] VITALS (10 sets, daily range): BP systolic 102–112; BP diastolic 49–66; PULSE 90–106; RESP 16–20; TEMP 35.7–36.4; O2SAT 90–101
--- NOTE | 2024-03-05 | PC.NURSE ---
Patient did not have her oxygen on when checked at 0000 for vitals. O2 sat was at 75%. Replaced oxygen and O2 sats slowly increased. Moved O2 to 2L, and it moved to 90-92% after a few seconds. Patient reminded to wear oxygen at all times. O2 was moved back to 1L, and O2 sats remained above 90%. Patient went back to sleep after vitals were taken.
[2024-03-05] MEDS: IPRATROPIUM 0.5 MG/ALBUTEROL SULFATE 2.5 MG AMPUL.NEB 3 ML INHALATION ×3 (00:24→11:23)
[2024-03-05] MEDS: SODIUM CHLORIDE 0.9% IV 1,000 ML 50 ML IV CONT (03:19)
[2024-03-05 05:08] LABS: Basophils Absolute Auto 0.01 K/mm3 (0.00-0.10); Basophils Percent Auto 0.1 % (0.0-1.0); Hematocrit 35.9 % (35.0-42.0); Hemoglobin 10.9 g/dL (11.7-13.8); Immature Granulocyte Absolute 0.08 K/mm3 (0.00-0.00); Immature Granulocyte Percent A 0.5 % (0.0-0.0); Lymphocytes Absolute Auto 0.14 K/mm3 (1.10-4.50); Lymphocytes Percent Auto 0.8 % (18.0-42.0); Mean Corpuscular HGB Conc 30.4 g/dL (32-36); Mean Corpuscular Hemoglobin 29.5 pg (27.0-31.0); Mean Platelet Volume 8.2 fl (9.2-11.8); Monocytes Absolute Auto 0.39 K/mm3 (0.10-0.90); Monocytes Percent Auto 2.2 % (2.0-11.0); Neutrophils Absolute Auto 17.04 K/mm3 (1.70-7.20); Neutrophils Percent Auto 96.4 % (50.0-70.0); Platelet Count Result 318 K/mm3 (150-420); Red Cell Distribution Width 13.4 % (11.6-14.4); White Blood Count 17.7 K/mm3 (4.8-10.8)
[2024-03-05 05:23] LABS: Alanine Aminotransferase 19 U/L (14-59); Albumin Level 2.6 g/dL (3.4-5.0); Alkaline Phosphatase 70 U/L (46-116); Anion Gap 4 mmol/L (4-12); Aspartate Amino Transferase 15 U/L (15-37); Bilirubin,Total 0.1 mg/dL (0.00-1.00); Blood Urea Nitrogen 28 mg/dL (7-18); Calcium 8.1 mg/dL (8.5-10.1); Carbon Dioxide 34 mmol/L (21-32); Chloride 103 mmol/L (98-108); Estimated CRCL calculation 21 ml/min; Estimated Glomerular Filt Rate 44; Glucose 144 mg/dL (70-99); Magnesium 1.9 mg/dL (1.8-2.4); Osmolality Calculated 300 mOsm/kg (285-295); Potassium 4.6 mmol/L (3.5-5.1); Sodium 141 mmol/L (136-145); Total Protein 5.7 g/dL (6.4-8.2)
--- NOTE | 2024-03-05 07:32 | P.PNIM_ITS ---
Progress Note: A&P Assessment and Plan (1) Acute and chronic respiratory failure with hypoxia: Code(s): J96.21 - Acute and chronic respiratory failure with hypoxia Status: Acute Assessment and Plan: * secondary to COPD exacerbation * patient was requiring more oxygen to maintain 92% then home oxygen * CXR showed no acute cardiopulmonary * home walk study completed patient will require 3 L with activity (2) COPD (chronic obstructive pulmonary disease): Qualifiers: COPD type: unspecified COPD Qualified Code(s): J44.9 - Chronic obstructive pulmonary disease, unspecified Code(s): J44.9 - Chronic obstructive pulmonary disease, unspecified Status: Acute Assessment and Plan: COPD * Bronchodilators. * Chest x-ray * incentive spirometry while awake. * steroids initiated switched to 40mg daily 03/05 * azithromycin 500 x 1 day/250 daily * supplemental oxygen therapy to maintain oxygen 92% L* Evaluation from home O2 if saturation less than 88% on room air. * 3L oxygen with activity (3) Hypoxia: Code(s): R09.02 - Hypoxemia Status: Acute Assessment and Plan: * secondary to acute on chronic COPD exacerbation * Respiratory Therapy did Six Minute Walk Test and requires 3 liters/minute with activity. * Saturation 90% on room air at rest, may need continuous overnight again tonight (4) Hypertension: Code(s): I10 - Essential (primary) hypertension Status: Acute Assessment and Plan: * Blood pressures reviewed 03/04, amlodipine was started on admission * Amlodipine 2.5 mg daily. Will hold. * Blood pressure is 95/59, HR 94 * Slight TIFFANIE on labs today * Will give 1 L of fluids 03/05 * BP improved but soft * discontinue amlodipine at discharge as well (5) Anxiety: Code(s): F41.9 - Anxiety disorder, unspecified Status: Acute Assessment and Plan: * Continue home medication * Reported history of opposite reaction to benzodiazepines (6) Dementia: Qualifiers: Dementia behavioral or psychological symptom: with anxiety Dementia severity: mild Dementia type: unspecified type Qualified Code(s): F03.A4 - Unspecified dementia, mild, with anxiety Code(s): F03.90 - Unspecified dementia, unspecified severity, without behavioral disturbance, psychotic disturbance, mood disturbance, and anxiety Status: Acute Assessment and Plan: * Significant short and custodial memory loss * Underweight * Very forgetful * Not able to return to assisted living status with new oxygen demand * Arrangements for senior living placement are being pursued 03/05 * Start low dose Namenda (7) Severe protein-calorie malnutrition: Code(s): E43 - Unspecified severe protein-calorie malnutrition Status: Acute Assessment and Plan: * BMI 14.9 * thin and cachectic appearing * advanced dementia as likely cause * Add nutritional supplements * General diet, ensure (8) Leukocytosis: Code(s): D72.829 - Elevated white blood cell count, unspecified Status: Acute Assessment and Plan: * appears reactive to steroid administration * no evidence of infectious process * downward trend * transitioned to daily p.o. steroids Plan Code status: DNR DVT prophylaxis: Lovenox Stress ulcer prophylaxis: NA PT/OT notes: Plan for SNF placement Disposition: [facility]
--- NOTE | 2024-03-05 07:32 | PM.IMPN ---
Progress Note: A&P Assessment and Plan (1) Acute and chronic respiratory failure with hypoxia: Code(s): J96.21 - Acute and chronic respiratory failure with hypoxia Status: Acute Assessment and Plan: secondary to COPD exacerbation patient was requiring more oxygen to maintain 92% then home oxygen CXR showed no acute cardiopulmonary home walk study completed patient will require 3 L with activity (2) COPD (chronic obstructive pulmonary disease): Qualifiers: COPD type: unspecified COPD Qualified Code(s): J44.9 - Chronic obstructive pulmonary disease, unspecified Code(s): J44.9 - Chronic obstructive pulmonary disease, unspecified Status: Acute Assessment and Plan: COPD Bronchodilators. Chest x-ray incentive spirometry while awake. steroids initiated switched to 40mg daily 03/05 azithromycin 500 x 1 day/250 daily supplemental oxygen therapy to maintain oxygen 92% Evaluation from home O2 if saturation less than 88% on room air. 3L oxygen with activity (3) Hypoxia: Code(s): R09.02 - Hypoxemia Status: Acute Assessment and Plan: secondary to acute on chronic COPD exacerbation Respiratory Therapy did Six Minute Walk Test and requires 3 liters/minute with activity. Saturation 90% on room air at rest, may need continuous overnight again tonight (4) Hypertension: Code(s): I10 - Essential (primary) hypertension Status: Acute Assessment and Plan: Blood pressures reviewed 03/04, amlodipine was started on admission Amlodipine 2.5 mg daily. Will hold. Blood pressure is 95/59, HR 94 Slight TIFFANIE on labs today Will give 1 L of fluids 03/05 BP improved but soft discontinue amlodipine at discharge as well (5) Anxiety: Code(s): F41.9 - Anxiety disorder, unspecified Status: Acute Assessment and Plan: Continue home medication Reported history of opposite reaction to benzodiazepines (6) Dementia: Qualifiers: Dementia behavioral or psychological symptom: with anxiety Dementia severity: mild Dementia type: unspecified type Qualified Code(s): F03.A4 - Unspecified dementia, mild, with anxiety Code(s): F03.90 - Unspecified dementia, unspecified severity, without behavioral disturbance, psychotic disturbance, mood disturbance, and anxiety Status: Acute Assessment and Plan: Significant short and nursing home memory loss Underweight Very forgetful Not able to return to assisted living status with new oxygen demand Arrangements for retirement placement are being pursued 03/05 Start low dose Namenda (7) Severe protein-calorie malnutrition: Code(s): E43 - Unspecified severe protein-calorie malnutrition Status: Acute Assessment and Plan: BMI 14.9 thin and cachectic appearing advanced dementia as likely cause Add nutritional supplements General diet, ensure (8) Leukocytosis: Code(s): D72.829 - Elevated white blood cell count, unspecified Status: Acute Assessment and Plan: appears reactive to steroid administration no evidence of infectious process downward trend transitioned to daily p.o. steroids Plan Code status: DNR DVT prophylaxis: Lovenox Stress ulcer prophylaxis: NA PT/OT notes: Plan for SNF placement Disposition: Patient continues admission to the medical unit for COPD exacerbation requiring increase supplemental oxygen patient with worsening dementia unable to return to assisted living currently awaiting on insurance authorization for patient to discharge to correction facility. Time Spent With Patient Time with patient: 15 - 25 minutes Subjective Date/time seen: 03/05/24 07:32 Interval history: This is a 78 year old female patient with past history of COPD, prior smoker, anxiety, HTN and dementia who resides at [facility]
[2024-03-05] MEDS: ESCITALOPRAM OXALATE 5 MG TABLET PO (08:26)
[2024-03-05] MEDS: THERAPEUTIC MULTIVITAMINS/MINERALS TAB (*BKC) 1 TABLET PO (08:27)
[2024-03-05] MEDS: predniSONE 20 MG TABLET 40 MG PO (08:28)
[2024-03-05] MEDS: busPIRone HCL 5 MG TABLET 10 MG PO (08:28)
[2024-03-05] MEDS: AZITHROMYCIN 250 MG TABLET 500 MG PO (08:28)
[2024-03-05] MEDS: MEMANTINE 5 MG TABLET PO (08:29)
[2024-03-05] MEDS: ENOXAPARIN 30 MG/0.3 ML SYRINGE SUB-Q (08:29)
--- NOTE | 2024-03-05 13:30 | P.DS_ITS ---
DS: Admitting Diagnosis Discharge Date 03/05 Admitting Diagnosis Acute on chronic respiratory failure with hypoxia secondary to COPD exacerbation DS: Discharge Diagnosis Discharge Diagnosis (1) Acute and chronic respiratory failure with hypoxia: Code(s): J96.21 - Acute and chronic respiratory failure with hypoxia Status: Acute Assessment and Plan: * secondary to COPD exacerbation * patient was requiring more oxygen to maintain 92% then home oxygen * CXR showed no acute cardiopulmonary * home walk study completed patient will require 3 L with activity (2) COPD (chronic obstructive pulmonary disease): Qualifiers: COPD type: unspecified COPD Qualified Code(s): J44.9 - Chronic obstructive pulmonary disease, unspecified Code(s): J44.9 - Chronic obstructive pulmonary disease, unspecified Status: Acute Assessment and Plan: COPD * Bronchodilators. * Chest x-ray * incentive spirometry while awake. * steroids initiated switched to 40mg daily 03/05 * azithromycin 500 x 1 day/250 daily * supplemental oxygen therapy to maintain oxygen 92% * Evaluation from home O2 if saturation less than 88% on room air. * 3L oxygen with activity (3) Hypoxia: Code(s): R09.02 - Hypoxemia Status: Acute Assessment and Plan: * secondary to acute on chronic COPD exacerbation * Respiratory Therapy did Six Minute Walk Test and requires 3 liters/minute with activity. * Saturation 90% on room air at rest, may need continuous overnight again tonight (4) Hypertension: Code(s): I10 - Essential (primary) hypertension Status: Acute Assessment and Plan: * Blood pressures reviewed 03/04, amlodipine was started on admission * Amlodipine 2.5 mg daily. Will hold. * Blood pressure is 95/59, HR 94 * Slight TIFFANIE on labs today * Will give 1 L of fluids 03/05 * BP improved but soft * discontinue amlodipine at discharge as well (5) Anxiety: Code(s): F41.9 - Anxiety disorder, unspecified Status: Acute Assessment and Plan: * Continue home medication * Reported history of opposite reaction to benzodiazepines (6) Dementia: Qualifiers: Dementia behavioral or psychological symptom: with anxiety Dementia severity: mild Dementia type: unspecified type Qualified Code(s): F03.A4 - Unspecified dementia, mild, with anxiety Code(s): F03.90 - Unspecified dementia, unspecified severity, without behavioral d isturbance, psychotic disturbance, mood disturbance, and anxiety Status: Acute Assessment and Plan: * Significant short and care home memory loss * Underweight * Very forgetful * Not able to return to assisted living status with new oxygen demand * Arrangements for detention placement are being pursued 03/05 * Start low dose Namenda (7) Severe protein-calorie malnutrition: Code(s): E43 - Unspecified severe protein-calorie malnutrition Status: Acute Assessment and Plan: * BMI 14.9 * thin and cachectic appearing * advanced dementia as likely cause * Add nutritional supplements * General diet, ensure (8) Leukocytosis: Code(s): D72.829 - Elevated white blood cell count, unspecified Status: Acute Assessment and Plan: * appears reactive to steroid administration * no evidence of infectious process * d
--- NOTE | 2024-03-05 13:30 | PM.DS ---
DS: Admitting Diagnosis Discharge Date 03/05 Admitting Diagnosis Acute on chronic respiratory failure with hypoxia secondary to COPD exacerbation DS: Discharge Diagnosis Discharge Diagnosis (1) Acute and chronic respiratory failure with hypoxia: Code(s): J96.21 - Acute and chronic respiratory failure with hypoxia Status: Acute Assessment and Plan: secondary to COPD exacerbation patient was requiring more oxygen to maintain 92% then home oxygen CXR showed no acute cardiopulmonary home walk study completed patient will require 3 L with activity (2) COPD (chronic obstructive pulmonary disease): Qualifiers: COPD type: unspecified COPD Qualified Code(s): J44.9 - Chronic obstructive pulmonary disease, unspecified Code(s): J44.9 - Chronic obstructive pulmonary disease, unspecified Status: Acute Assessment and Plan: COPD Bronchodilators. Chest x-ray incentive spirometry while awake. steroids initiated switched to 40mg daily 03/05 azithromycin 500 x 1 day/250 daily supplemental oxygen therapy to maintain oxygen 92% Evaluation from home O2 if saturation less than 88% on room air. 3L oxygen with activity (3) Hypoxia: Code(s): R09.02 - Hypoxemia Status: Acute Assessment and Plan: secondary to acute on chronic COPD exacerbation Respiratory Therapy did Six Minute Walk Test and requires 3 liters/minute with activity. Saturation 90% on room air at rest, may need continuous overnight again tonight (4) Hypertension: Code(s): I10 - Essential (primary) hypertension Status: Acute Assessment and Plan: Blood pressures reviewed 03/04, amlodipine was started on admission Amlodipine 2.5 mg daily. Will hold. Blood pressure is 95/59, HR 94 Slight TIFFANIE on labs today Will give 1 L of fluids 03/05 BP improved but soft discontinue amlodipine at discharge as well (5) Anxiety: Code(s): F41.9 - Anxiety disorder, unspecified Status: Acute Assessment and Plan: Continue home medication Reported history of opposite reaction to benzodiazepines (6) Dementia: Qualifiers: Dementia behavioral or psychological symptom: with anxiety Dementia severity: mild Dementia type: unspecified type Qualified Code(s): F03.A4 - Unspecified dementia, mild, with anxiety Code(s): F03.90 - Unspecified dementia, unspecified severity, without behavioral disturbance, psychotic disturbance, mood disturbance, and anxiety Status: Acute Assessment and Plan: 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 Underweight Very forgetful Not able to return to assisted living status with new oxygen demand Arrangements for long-term placement are being pursued 03/05 Start low dose Namenda (7) Severe protein-calorie malnutrition: Code(s): E43 - Unspecified severe protein-calorie malnutrition Status: Acute Assessment and Plan: BMI 14.9 thin and cachectic appearing advanced dementia as likely cause Add nutritional supplements General diet, ensure (8) Leukocytosis: Code(s): D72.829 - Elevated white blood cell count, unspecified Status: Acute Assessment and Plan: appears reactive to steroid administration no evidence of infectious process downward trend transitioned to daily p.o. steroids Plan Disposition: Patient discharged to intermediate facility DS: Summary Hospital Course Reason for hospitalization: Acute on chronic respiratory failure with hypoxia secondary to COPD exacerbation Hospital Course: This is a 78 year old female patient with past history of COPD, prior smoker, anxiety, HTN and dementia who resides at [facility]. Patient lives at one of the furthest rooms from the dining room and when she walked to the dining room yesterday patient became short of era
--- NOTE | 2024-03-05 17:48 | PC.NURSE ---
Patient discharged to the [facility] at this time per private vehicle with daughter. Belongings sent with patient as well as discharge instructions.
--- NOTE | 2024-03-06 13:49 | PC.NURSE ---
Discharge call back completed spoke with Bhakti her POA/daughter, doing well with oxygen, only for got to put it on once, recovered well, did dc memantine and seroquel, one gave night terrors and the other is similar to the trazadone she is on, daughter called Dr Bauer's office and they agreed to stop these 2 new medications. She will stay with her until she is comfortable wearing the oxgen, no other questions, states received great care.
== END 2024-03-05 17:45 | DRG 190 ==
LOC: CHSED 22:08 → CHS2ND 22:36
PROVIDERS: Nurse Practitioner; Nurse Practitioner Acute Care; Admitting Provider Internal Medicine; Emergency Provider Emergency Medicine; PCP Internal Medicine; Visit Provider Nurse Practitioner Family
DX: J44.1 Chronic obstructive pulmonary disease with (acute) exacerbation (principal); E43 Unspecified severe protein-calorie malnutrition; J96.21 Acute and chronic respiratory failure with hypoxia; Z68.1 Body mass index [BMI] 19.9 or less, adult; I10 Essential (primary) hypertension; D72.829 Elevated white blood cell count, unspecified; F41.9 Anxiety disorder, unspecified; F03.90 Unspecified dementia, unspecified severity, without behavioral disturbance, psychotic disturbance, mood disturbance, and anxiety; G40.909 Epilepsy, unspecified, not intractable, without status epilepticus; Z87.891 Personal history of nicotine dependence
CPT/HCPCS: 36415; 71046; 71260; 80053; 81003; 83735; 83880; 84484; 85025; 85380; 87637; 93005; 94618; 94640; 96374; 97110; 97161; 97166; 97530; 97535; 99285; A9270; G0378; J1200; J1650; J2405; J2919; J7030; J7512; Q9967

== ENCOUNTER 2024-03-07 13:40 | Observation (INO) | payer OTHER, SELFPAY ==
[2024-03-07] VITALS (12 sets, daily range): BP systolic 119–142; BP diastolic 68–102; PULSE 92–112; RESP 16–24; TEMP 36.7–37.2; O2SAT 94–99; BMI 14.8
--- NOTE | ~2024-03-07 | XR_ITS ---
EXAMINATION: XR chest 2V DATE: 03/07/2024 14:49 INDICATION: Shortness of breath. TECHNIQUE: Frontal and lateral views of the chest were obtained. COMPARISON: Chest 2 views 03/02/2024, chest CT 03/02/2024 FINDINGS: The lungs are hyperexpanded with lucencies, consistent with emphysema. No pleural effusion or pneumothorax. The heart size is normal. IMPRESSION: 1. Emphysema. Reviewed, dictated and finalized at location A. IMPRESSION: 1. Emphysema.
--- NOTE | 2024-03-07 13:59 | ECG_ITS ---
Test Date: 2024-03-07 13:50:22 Measurements Intervals [place] Rate: 102 P: 85 VT: 130 QRS: 6 QRSD: 122 T: 50 QT: 348 QTc: 455 Interpretive Statements SINUS TACHYCARDIA POSSIBLE LEFT ATRIAL ENLARGEMENT [-0.1mV P-WAVE IN V1/V2] INDETERMINATE AXIS RIGHT BUNDLE BRANCH BLOCK [120+ ms QRS DURATION, UPRIGHT V1, 40+ ms S IN I/aVL/V4/V5/V6] Compared to ECG 03/02/2024 22:40:08 heart rate increased Electronically Signed On 03-08-2024 14:28:05 CDT by Joe Molina M.D.
[2024-03-07 14:15] LABS: Basophils Percent Auto 0.1 % (0.2-1.2); Hematocrit 42.5 % (37.0-47.0); Hemoglobin 12.9 g/dL (12.0-15.0); Immature Granulocyte Absolute 0.08 K/mm3 (0.00-0.031); Immature Granulocyte Percent A 0.8 % (0-0.5); Lymphocytes Absolute Auto 0.32 K/mm3 (0.9-3.2); Lymphocytes Percent Auto 3.3 % (18.3-44.2); Mean Corpuscular HGB Conc 30.4 g/dl (32-36); Mean Corpuscular Hemoglobin 29.3 pg (26-34); Mean Corpuscular Volume 96.4 fl (80-100); Mean Platelet Volume 8.4 fl (7.4-10.4); Monocytes Absolute Auto 0.2 K/mm3 (0.1-0.6); Monocytes Percent Auto 2.3 % (2.6-8.5); Neutrophils Absolute Auto 9.1 K/mm3 (1.3-6.7); Neutrophils Percent Auto 93.5 % (45.5-73.1); Platelet Count Result 324 k/mm3 (150-375); Red Blood Count 4.41 M/mm3 (4.2-5.4); Red Cell Distribution Width 13.3 % (11.5-14.5); White Blood Count 9.7 K/mm3 (4.5-10.0)
[2024-03-07 14:32] LABS: Alanine Aminotransferase 28 U/L (6-35); Albumin Level 3.7 g/dL (3.5-5.1); Alkaline Phosphatase 61 U/L (38-126); Aspartate Amino Transferase 40 U/L (14-36); Bilirubin,Total 0.2 mg/dL (0.2-1.3); Blood Urea Nitrogen 17 mg/dL (7-17); Calcium 8.4 mg/dL (8.4-10.2); Carbon Dioxide > 40 mmol/L (22-30); Chloride 93 mmol/L (98-107); Estimated CRCL calculation 32 ml/min; Estimated Glomerular Filt Rate > 60; Glucose 194 mg/dL (65-110); Potassium 4.1 mmol/L (3.4-5.0); Sodium 136 mmol/L (137-145)
[2024-03-07] MEDS: IPRATROPIUM 0.5 MG/ALBUTEROL SULFATE 2.5 MG AMPUL.NEB 3 ML INHALATION (15:57)
[2024-03-07] MEDS: ALBUTEROL SULFATE NEB 2.5 MG/3 ML INH INHALATION ×2 (15:57→20:08)
[2024-03-07 16:03] LABS: Alveolar/Arterial O2 Gradient 39.1 mmHg; Base Excess ABG 10.9 mEq/l (+/-2.0); Fractional Inspired Oxygen 24 %; HCO3 ABG 35.6 mEq/l (22.0-26.0); Oxygen Saturation ABG 96.1 % (95.0-100.0); Oxyhemoglobin 96.1 % THb (90.0-100.0); PO2 ABG 76.1 mmHg (80.0-100.0); PO2 FiO2 Ratio Arterial Blood 3.17 %; Total Hemoglobin 13.3 g/dL (12.0-18.0); pH ABG 7.497 (7.350-7.450)
[2024-03-07 16:04] LABS: Device NASAL CANNULA; Site Drawn RIGHT BRACHIAL
[2024-03-07] MEDS: methylPREDNISolone SOD SUCC 125 MG VIAL IV PUSH (16:06)
--- NOTE | 2024-03-07 16:49 | ED.SOB ---
HPI - SOB/Dyspnea General Chief Complaint: Shortness of Breath/Dyspnea Stated Complaint: SOB Time Seen by Provider: 03/07/24 13:42 Source: patient and family Mode of arrival: EMS Limitations: no limitations History of Present Illness HPI Narrative: 78-year-old with a history of COPD on home O2 was brought in by EMS from assisted living facility with the complaints of shortness of breath. Patient's daughter is the main historian states that she was recently discharged from [facility] few day ago ,she states gets short of breath with minimal ambulation .she is presently on prednisone and azithromycin . No fever or chills Onset (ago): week(s) (1) Timing: constant Severity: severe Exacerbating factors: exertion Relieving factors: oxygen Known history of: COPD Associated symptoms: denies other symptoms Treatment prior to arrival: oxygen and bronchodilator Related Data Home oxygen amount: 2 liters Home Medications Medication Instructions Recorded Confirmed trazodone 50 mg tablet 50 mg PO HS 11/24/23 03/02/24 buspirone 10 mg tablet 10 mg PO BID 03/02/24 03/02/24 escitalopram oxalate 5 mg tablet 5 mg PO DAILY 03/02/24 03/02/24 multivitamin with minerals-folic 1 tablet PO DAILY 03/02/24 03/02/24 acid 80 mcg chewable tablet (Centrum Adult 50 Plus) Allergies Allergy/AdvReac Type Severity Reaction Status Date / Time No Known Allergies Allergy Verified 03/02/24 18:47 Review of Systems Constitutional: Constitutional: Reports no additional constitutional complaints Eyes: Eyes: Reports no additional eye complaints ENT: Reports system reviewed and no additional complaints, except as documented Cardiovascular: Cardiovascular: Reports no additional cardiovascular complaints Respiratory: Respiratory: Reports as per HPI Gastrointestinal: Gastrointestinal: Reports no additional gastrointestinal complaints Musculoskeletal: Musculoskeletal: Reports no additional musculoskeletal complaints Neurologic: Reports system reviewed and no additional complaints, except as documented [facility] Past Medical History Medical History COPD (chronic obstructive pulmonary disease) Dementia Seizure disorder Social History Social History Smoking packs per day: 1 Smoking cigarettes per day: 20.0 Years smoked: 15 Smoking pack-years: 15.00 Smoking status: Former smoker Tobacco type: cigarettes Second hand tobacco smoke exposure: No Smoking end date: 11/06/14 Alcohol intake: never Substance use: never Do You Feel Safe in your Home?: Yes Lack of Transportation: No Lack of Food: Never True Current Housing: I Have Housing Concerned About Future Housing: No Difficulty Paying Gas/Electric Bills: No Difficulty Paying for Meds: No Currently Unemployed: No Education: Don't Know Difficulty w/ Childcare or Family Care: No Spiritual care concerns: No Exam Narrative: GENERAL: Well-appearing, thin, and in no acute distress. HEAD: Normocephalic, atraumatic. EYES: PERRLA and EOMI. ENT: Nares clear, no rhinorrhea or epistaxis. Mucous membranes moist. NECK: Supple.supra sternal retraction CHEST: Bilateralwheeze No respiratory distress. HEART: Regular rate and rhythm. No murmur heard. Normal peripheral pulses. ABDOMEN: Soft, nontender, nondistended, normal active bowel sounds. EXTREMITIES: Normal range of motion. No edema. SKIN: Warm, dry, no rash. NEURO: No focal deficits. Alert and oriented x3. PSYCH: Normal mood and affect. Course Course Emergency Course: Patient mildly tachypneic upon arrival. I did give a neb treatment ,obtained lab work and chest xray , pt is unable to function in her assisted living facility agreed with admission ,Case management was here to talk to the pt , . Vital Signs Vital signs: Vital Signs Temperature 37.2 C 03/07/24 13:45 Pulse Rate 112 H
[2024-03-07] MEDS: SODIUM CHLORIDE 0.9% IV 1,000 ML 75 ML IV CONT (17:49)
--- NOTE | 2024-03-07 18:16 | PCCCNOTE ---
CC called to the ED for placement of care. Pt resides in [facility] at this time, but is requiring more assistance than they can provide. I provided the daughter, Bhakti, with facilities that they can decide on for when pt is discharged. No further questions at this time.
--- NOTE | 2024-03-07 18:44 | ADMGEN ---
This patient, Polina Tavarez, was admitted to [facility] Surg Room 317-01. Patient/family oriented to hospital policies and general routines including ID bracelet, bed and alarms, visiting hours, pain management, procedures, bathroom and other care routines, personal items, smoking policy, room service/diet, and visiting hours. Information on how to activate the Rapid Response Team has been discussed. Patient/Family are encouraged to report perceived risks to care and to ask questions if they do not understand what they are told or what they should do.
[2024-03-07] MEDS: IPRATROPIUM BR 0.02% INH SOLN 0.5 MG/2.5 ML VIAL INHALATION (20:08)
--- NOTE | 2024-03-07 22:05 | PM.IMHP ---
H&P: HPI History of Present Illness Date/Time: 03/07/24 22:05 Chief Complaint: Shortness of breath. Narrative: This is a pleasant 78-year-old female with chronic obstructive pulmonary disease with emphysema and chronic respiratory failure on home oxygen who presented to the emergency department via EMS from her assisted living facility for evaluation of shortness of breath. She is a not a great historian due to her underlying dementia and significant short-term memory loss and thus a majority the following is obtained via a review of her EMR as well as information provided by her daughter. She was admitted to the hospital in [place] on 03/02/2024 with a COPD exacerbation. She improved with bronchodilators and steroids she was discharged back to her facility on 03/05/2024 with supplemental oxygen (1 L with rest and 3 L with activity). She believes that her breathing was back to baseline on discharge. Today she appeared more short of breath and had increasing oxygen requirements and she was sent in for evaluation. She does not remember why she was brought in today. At the time my evaluation she tells me that she feels just fine. She denies fever, chills, sweats, headache, chest pain, pleuritic pain, palpitations, nausea, vomiting, diarrhea, dysuria, edema, and calf pain. EN route to the hospital she received a DuoNeb and she arrived with an SpO2 of 96% on 1 L. The remainder of her vital signs are stable. Labs were significant for WBC count of 9.7, hemoglobin 12.9, sodium 136, chloride 93, carbon dioxide greater than 40, glucose 194. Chest x-ray showed emphysema. She received Solu-Medrol and another DuoNeb and is being admitted in this setting. Review of Systems Review of Systems: Limited due to significant short-term memory loss. She stated no to every question asked of her. [facility] Past Medical History Medical History (Updated 03/07/24 @ 22:40 by Nitza Brady PA-C) Anxiety Chronic obstructive pulmonary disease Dementia Hypertension Seizure disorder Surgical History Surgical History (Updated 03/07/24 @ 22:37 by Nitza Brady PA-C) History of cataract extraction History of tonsillectomy Family History Family History (Updated 03/07/24 @ 22:37 by Nitza Brady PA-C) Other Family history non-contributory Social History Social History (Updated 03/07/24 @ 22:38 by Nitza Brady PA-C) Social History: Healthcare power of trust and estates attorney: Ketan Moser. Code status: Full code. Smoking packs per day: 1 Smoking cigarettes per day: 20.0 Years smoked: 50 Smoking pack-years: 50.00 Smoking status: Former smoker Tobacco type: cigarettes Second hand tobacco smoke exposure: No Smoking end date: 11/06/14 Alcohol intake: never Substance use: never Substance use type: does not use Do You Feel Safe in your Home?: Yes Lack of Transportation: No Lack of Food: Never True Current Housing: I Have Housing Concerned About Future Housing: No Difficulty Paying Gas/Electric Bills: No Difficulty Paying for Meds: No Currently Unemployed: No Education: Don't Know Difficulty w/ Childcare or Family Care: No Spiritual care concerns: No Meds Home Medications and Allergies Home Medications Medication Instructions Recorded Confirmed Type trazodone 50 mg tablet 50 mg PO HS 11/24/23 03/07/24 History buspirone 10 mg tablet 10 mg PO BID 03/02/24 03/07/24 History escitalopram oxalate 5 mg tablet 5 mg PO DAILY 03/02/24 03/07/24 History multivitamin with minerals-folic 1 tablet PO DAILY 03/02/24 03/07/24 History acid 80 mcg chewable tablet (Centrum Adult 50 Plus) azithromycin 250 mg tablet 250 mg PO DAILY #4 tabs 03/05/24 03/07/24 Rx (Zithromax) prednisone 20 mg tablet 40 mg PO DAILY@0800 #6 tabs 03/05/24 03/07/24 Rx Allergies Allergy/AdvReac Type Severity Reaction Status Date / Time No Known Allergies Allergy Verified 03/02/24 18:47 Vital Signs Vital Signs - 2
[2024-03-08] VITALS (13 sets, daily range): BP systolic 121–153; BP diastolic 56–98; PULSE 91–108; RESP 16–24; TEMP 36.4–37.1; O2SAT 92–99; BMI 15.4
[2024-03-08] MEDS: LORazepam (*CRX) 0.5 MG TABLET PO (01:40)
[2024-03-08] MEDS: QUEtiapine FUMARATE 25 MG TABLET PO (03:30)
[2024-03-08 05:51] LABS: Base Excess ABG 9.3 mEq/l (+/-2.0); Carboxyhemoglobin 0.2 % THb (0-2.0); Fractional Inspired Oxygen 24 %; Methemoglobin ABG 0.1 %THb (0-1.5); Oxygen Content ABG 17.4 %vol (16.0-22.0); Oxygen Saturation ABG 96.5 % (95.0-100.0); Oxyhemoglobin 96.5 % THb (90.0-100.0); PCO2 ABG 52.2 mmHg (35.0-45.0); Reduced Hemoglobin 3.2 %THb (0-5.0); Total Hemoglobin 12.8 g/dL (12.0-18.0); pH ABG 7.444 (7.350-7.450)
[2024-03-08 05:53] LABS: Device NASAL CANNULA; Site Drawn RIGHT BRACHIAL
[2024-03-08 07:03] LABS: Anion Gap 5 mmol/L (4-12); Blood Urea Nitrogen 18 mg/dL (7-17); Calcium 8.5 mg/dL (8.4-10.2); Carbon Dioxide 39 mmol/L (22-30); Chloride 94 mmol/L (98-107); Estimated CRCL calculation 34 ml/min; Estimated Glomerular Filt Rate > 60; Glucose 99 mg/dL (65-110); Magnesium 2.1 mg/dL (1.6-2.3); Sodium 138 mmol/L (137-145)
[2024-03-08] MEDS: IPRATROPIUM BR 0.02% INH SOLN 0.5 MG/2.5 ML VIAL INHALATION (07:32)
[2024-03-08] MEDS: ALBUTEROL SULFATE NEB 2.5 MG/3 ML INH INHALATION ×3 (07:32→20:13)
[2024-03-08] MEDS: ENOXAPARIN 30 MG/0.3 ML SYRINGE SUB-Q (08:07)
[2024-03-08] MEDS: predniSONE 20 MG TABLET PO ×2 (08:07→09:44)
[2024-03-08 08:13] LABS: Hemoglobin A1C 5.9 % (<5.7)
[2024-03-08] MEDS: AZITHROMYCIN 250 MG TABLET PO (09:43)
[2024-03-08] MEDS: busPIRone HCL 10 MG TABLET PO ×2 (09:43→16:05)
[2024-03-08] MEDS: MULTIVITS W-FE,MIN CHEWABLE TABLET 1 TABLET PO (09:43)
[2024-03-08] MEDS: ESCITALOPRAM OXALATE 5 MG TABLET PO (09:43)
--- NOTE | 2024-03-08 13:45 | PM.IMPN ---
Progress Note: A&P Assessment and Plan (1) Acute exacerbation of chronic obstructive pulmonary disease: Code(s): J44.1 - Chronic obstructive pulmonary disease with (acute) exacerbation Status: Acute Assessment and Plan: The patient presented to the emergency department for evaluation of shortness of breath. CXR showing emphysema. She had a CT chest on 03/02 showing emphysema and stable pulmonary nodules. She did have moderate distal esophageal and gastric wall edema. ABG 7.44/52/84 on 1L. She is currently at her baseline oxygen requirement (1L at rest, 3L with exertion) and appears in no distress. No wheezing on exam Resume Prednisone. Finish Azithromycin (last dose today). Continue bronchodilators Check Echo. Speech therapy to see (2) Hyperglycemia: Code(s): R73.9 - Hyperglycemia, unspecified Status: Acute Assessment and Plan: A1c 5.9%. The patient's blood glucose was reviewed on 03/08 Glucose remains high at times. Probably related to steroids. Follow (3) Dementia: Qualifiers: Dementia behavioral or psychological symptom: with anxiety Dementia severity: mild Dementia type: unspecified type Qualified Code(s): F03.A4 - Unspecified dementia, mild, with anxiety Code(s): F03.90 - Unspecified dementia, unspecified severity, without behavioral disturbance, psychotic disturbance, mood disturbance, and anxiety Status: Acute Assessment and Plan: Patient with dementia that family feel is much worse today. She has tried medications for dementia in the past but can not tolerate. Suspect her worsening mental status is from new location, Seroqul/Ativan. Will not repeat Seroquel. Resume Buspirone and Trazodone. (4) Anxiety: Code(s): F41.9 - Anxiety disorder, unspecified Status: Acute Assessment and Plan: As above. Resume home meds Plan Possible esophagitis - as seen by CT. Add PPI DVT prophylaxis - Lovenox Code status - Full Disp - PT/OT/ST Subjective Date/time seen: 03/08/24 13:45 Interval history: 78yo female with dementia and COPD here for SOB. Patient is alert but confused and unable to provide hx. Dtr at bedside and states patiet is more confused then baseline. Patient was given Seroquel and Ativan overnight for anxiety. Dtr states that the patient has a hx of not able to toelrate Seroquel and Namenda in the past due to increasing confusion. Review of Systems Review of Systems: ROS unobtainable: Yes unobtainable due to mental status Exam Narrative: AF 98.8 153/71 91 20 95% 1L Gen - NARD Chest - distant, clear BS. Nml rr CV - RRR S1/S2 Abd - Soft, NT/ND, Positive BS Ext - No pedal edema Neuro - Alert but confused Psych - Nml mood and affect Skin - Warm and dry Objective Data Vital Signs Vital Signs: Vital Signs - 24 hr 03/07/24 13:55 03/07/24 14:29 03/07/24 15:26 Temperature 98.9 F Pulse Rate 107 H 94 Respiratory Rate 21 H 16 Blood Pressure 121/75 121/68 Pulse Oximetry 96 94 95 Oxygen Delivery Nasal Cannula Oxygen Flow Rate 1 Fraction of Inspired Oxygen 03/07/24 15:59 03/07/24 16:16 03/07/24 17:09 Temperature Pulse Rate 92 98 107 H Respiratory Rate 20 17 24 H Blood Pressure 119/74 Pulse Oximetry 95 Oxygen Delivery Oxygen Flow Rate Fraction of Inspired Oxygen 03/07/24 19:11 03/07/24 20:08 03/07/24 20:19 Temperature 98.1 F Pulse Rate 107 H 99 99 Respiratory Rate 24 H 20 Blood Pressure 142/69 H Pulse Oximetry 98 98 Oxygen Delivery Nasal Cannula Oxygen Flow Rate 3 Fraction of Inspired Oxygen 03/07/24 20:17 03/07/24 20:00 03/07/24 20:00 Temperature 98.4 F Pulse Rate 95 100 99 Respiratory Rate 20 19 20 Blood Pressure 133/102 H Pulse Oximetry 99 98 Oxygen Delivery Nasal Cannula Oxygen Flow Rate 1 Fraction of Inspired Oxygen 03/08/24 00:00 03/08/24 04:00 03/08/24 07:33 Temperature 97.7 F 97.5 F L Pulse
--- NOTE | 2024-03-08 15:41 | PC.NURSE ---
Upon assessment this morning, the patient's daughter asked this nurse about the medications given to the patient. This nurse explained the ordered and previously given medications. The daughter stated that the Seroquel that was given should not have been. The daughter stated that the patient has had previous issues involving altered mental status when taking this medication. The daughter also stated that the patient should not be given Memantine because of similar results. This nurse explained this to Dr. Mccray who then spoke with the patient's daughter. Copies of a previous order to discontinue the use of these medications, faxed from the patient's assisted living facility, have been placed on the chart.
[2024-03-08] MEDS: PANTOPRAZOLE 40 MG TABLET PO (20:19)
[2024-03-08] MEDS: traZODone HCL 50 MG TABLET PO (20:19)
[2024-03-08] MEDS: MELATONIN 5 MG TABLET PO (20:20)
[2024-03-09] VITALS (15 sets, daily range): BP systolic 100–153; BP diastolic 56–87; PULSE 87–103; RESP 16–20; TEMP 36.4–37.4; O2SAT 82–100
[2024-03-09] MEDS: ALBUTEROL SULFATE NEB 2.5 MG/3 ML INH INHALATION ×4 (04:45→20:05)
[2024-03-09] MEDS: UMECLIDINIUM BROMIDE 62.5 MCG ELLIPTA 1 PUFF INHALATION (07:45)
[2024-03-09] MEDS: MULTIVITS W-FE,MIN CHEWABLE TABLET 1 TABLET PO (09:06)
[2024-03-09] MEDS: ENOXAPARIN 30 MG/0.3 ML SYRINGE SUB-Q (09:06)
[2024-03-09] MEDS: ESCITALOPRAM OXALATE 5 MG TABLET PO (09:06)
[2024-03-09] MEDS: PANTOPRAZOLE 40 MG TABLET PO ×2 (09:06→20:30)
[2024-03-09] MEDS: busPIRone HCL 10 MG TABLET PO ×2 (09:06→16:12)
--- NOTE | 2024-03-09 11:15 | PCSTNOTE ---
Please refer to the Bedside Swallow Evaluation in the EMR. Please note, silent aspiration cannot be ruled out at bedside. This 78-year old female patient was evaluated at bedside to assess her ability to safely tolerate oral intake. Patient was admitted on 03/07/24 for evaluation of shortness of breath. She denied dysphagia. Oral-motor exam revealed appropriate strength, ROM and symmetry. Trials of thin liquids via cup edge and straw, purees, and solids were administered at bedside. The pt exhibited a double swallow on thin liquids. Oral transit was timely with no oral residue noted on all other consistencies. Laryngeal elevation was adequate and timely for all swallows. Vocal quality remained clear and no s/s aspiration were noted. Given the results of this assessment, it is recommended this pt receive an oral diet of regular solids and thin liquids. No further ST is warranted at this time. Thank you for this referral.
--- NOTE | 2024-03-09 12:44 | PM.IMPN ---
Progress Note: A&P Assessment and Plan (1) Acute exacerbation of chronic obstructive pulmonary disease: Code(s): J44.1 - Chronic obstructive pulmonary disease with (acute) exacerbation Status: Acute Assessment and Plan: The patient presented to the emergency department for evaluation of shortness of breath. CXR showing emphysema. She had a CT chest on 03/02 showing emphysema and stable pulmonary nodules. She did have moderate distal esophageal and gastric wall edema. ABG 7.44/52/84 on 1L. She is currently at her baseline oxygen requirement (1L at rest, 3L with exertion) and appears in no distress. No wheezing on exam Speech therapy did not note any concerns Echo pending Resumed Prednisone and Azithromycin to finish the course from last hospitalization. Continue bronchodilators. Continue Incruse Okay for discharge when location determined (2) Hyperglycemia: Code(s): R73.9 - Hyperglycemia, unspecified Status: Acute Assessment and Plan: A1c 5.9%. The patient's blood glucose was reviewed on 03/09 Glucose better off steroids. Follow (3) Dementia: Qualifiers: Dementia behavioral or psychological symptom: with anxiety Dementia severity: mild Dementia type: unspecified type Qualified Code(s): F03.A4 - Unspecified dementia, mild, with anxiety Code(s): F03.90 - Unspecified dementia, unspecified severity, without behavioral disturbance, psychotic disturbance, mood disturbance, and anxiety Status: Acute Assessment and Plan: Patient with dementia that family feel is much worse today. She has tried medications for dementia in the past but can not tolerate. She was discharged with Seroquel and Namenda but family did not want to continue these medications. Suspect her worsening mental status was from new location and the one time doses of Seroquel/Ativan. We have resumed Buspirone and Trazodone. Mental status stable. (4) Anxiety: Code(s): F41.9 - Anxiety disorder, unspecified Status: Acute Assessment and Plan: As above.Home meds resumed Plan Possible esophagitis - as seen by CT. Continue PPI DVT prophylaxis - Lovenox Code status - Full Disp - PT/OT; awaiting placement. Subjective Date/time seen: 03/09/24 12:44 Interval history: 78yo female with dementia and COPD here for SOB. Patient is alert but confused and unable to provide hx. No family in the room. Patient doesn't feel well/has malaise but no specific complaints. Exam Narrative: AF 97.6 153/87 89 18 92% 1L Gen - NARD sitting up in the chair Chest - CTA bilaterally. No wheezing. CV - RRR S1/S2 Abd - Soft, NT/ND, Positive BS Ext - No pedal edema Neuro - Alert but confused. Oriented to location. Psych - Nml mood but anxious affect Skin - Warm and dry Objective Data Vital Signs Vital Signs: Vital Signs - 24 hr 03/08/24 13:32 03/08/24 13:32 03/08/24 13:38 Temperature Pulse Rate 105 H 91 Respiratory Rate 20 20 Blood Pressure Pulse Oximetry 95 Oxygen Delivery Nasal Cannula Oxygen Flow Rate 1 Fraction of Inspired Oxygen 24 03/08/24 20:13 03/08/24 20:17 03/08/24 21:01 Temperature 97.6 F Pulse Rate 94 108 H Respiratory Rate 20 24 H Blood Pressure 141/73 H Pulse Oximetry 96 99 Oxygen Delivery Nasal Cannula Oxygen Flow Rate 1 Fraction of Inspired Oxygen 03/08/24 20:00 03/09/24 06:00 03/09/24 07:45 Temperature 97.6 F Pulse Rate 108 H 87 Respiratory Rate 24 H 16 Blood Pressure 153/87 H Pulse Oximetry 99 100 96 Oxygen Delivery Nasal Cannula Nasal Cannula Oxygen Flow Rate 1 1 Fraction of Inspired Oxygen 03/09/24 07:45 03/09/24 07:55 03/09/24 08:27 Temperature Pulse Rate 89 Respiratory Rate 18 18 Blood Pressure Pulse Oximetry 82 L Oxygen Delivery Room Air Oxygen Flow Rate Fraction of Inspired Oxygen 03/09/24 08:29 03/09/24 08:30 03/09/24 10:10 [place]
[2024-03-09] MEDS: traZODone HCL 50 MG TABLET PO (20:30)
[2024-03-09] MEDS: MELATONIN 5 MG TABLET PO (20:30)
[2024-03-10] VITALS (12 sets, daily range): BP systolic 106–120; BP diastolic 65–88; PULSE 87–104; RESP 16–20; TEMP 36.4–37.2; O2SAT 91–96
--- NOTE | 2024-03-10 | ECHO_ITS ---
Patient Info Name: Polina Tavarez Age: 78 years : 1945 Gender: Female Ht: 62 in Wt: 84 lbs BSA: 1.28 m2 HR: 93 bpm BP: 106 / 88 mmHg Heart Rhythm: Indeterminant Technical Quality: Fair Exam Date: 03/10/2024 11:19 AM Exam Location: Echo Lab Patient Status: Inpatient Admit Date: 03/07/2024 Staff Ordering Physician: Sam Mccray MD Ad Operations Specialist: Julio Barrera RK Attending Provider: Sam Mccray MD Exam Type: CA echo doppler w bubble study Study Info Indications J96.01 - Acute respiratory failure with hypoxia Complete two-dimensional, color flow and Doppler transthoracic echocardiogram is performed with agitated saline. Contrast/Agitated Saline Contrast/Ag. Saline: Agitated Saline Amount: 14.00 ml Existing IV Access: Yes IV Access Condition: patent with no signs of infiltration Summary 1. Left ventricular chamber dimension is normal. 2. Left ventricular systolic function is normal, estimated at 65-70%. 3. The left ventricular diastolic function is grade I diastolic dysfunction. 4. Right ventricular chamber dimension is moderately enlarged. 5. Right ventricular systolic function is normal. 6. Left atrial chamber dimension is mildly enlarged. 7. Right atrial chamber dimension is moderately enlarged. 8. Suspected patent foramen ovale visualized by agitated saline imaging. Bubbly study is positive for a right to left shunt. 9. There is mild aortic valve regurgitation. 10. There is mild tricuspid valve regurgitation. 11. There is mild pulmonic regurgitation. 12. There is trivial anterior pericardial effusion. Left Ventricle Left ventricular chamber dimension is normal. Left ventricular systolic function is normal, estimated at 65-70%. There is no increased left ventricular wall thickness. The left ventricular diastolic function is grade I diastolic dysfunction. Right Ventricle Right ventricular chamber dimension is moderately enlarged. Right ventricular systolic function is normal. Left Atria Left atrial chamber dimension is mildly enlarged. Right Atria Right atrial chamber dimension is moderately enlarged. Atrial Septum Suspected patent foramen ovale visualized by agitated saline imaging. Bubbly study is positive for a right to left shunt. Aortic Valve The aortic valve is trileaflet. There is no aortic valve stenosis. There is mild aortic valve regurgitation. There is mild aortic valve calcification. Pulmonic Valve The pulmonic valve is not well visualized. There is mild pulmonic regurgitation. Mitral Valve There is trace mitral valve regurgitation. Tricuspid Valve There is mild tricuspid valve regurgitation. Pericardium/Pleural There is trivial anterior pericardial effusion. Inferior Vena Cava Normal inferior vena cava with >50% collapse upon inspiration consistent with normal right atrial pressure, 3 mmHg. Aorta The aortic root size at the sinus of Valsalva is normal. Left Ventricular Outflow Tract Name Value Normal LVOT 2D LVOT Diameter 2.0 cm LVOT Doppler LVOT Peak Gradient 4 mmHg LVOT Mean Gradient 2 mmHg LVOT VTI 16 cm
[2024-03-10] MEDS: ALBUTEROL SULFATE NEB 2.5 MG/3 ML INH INHALATION ×4 (03:32→19:52)
[2024-03-10] MEDS: UMECLIDINIUM BROMIDE 62.5 MCG ELLIPTA 1 PUFF INHALATION (07:42)
[2024-03-10] MEDS: MULTIVITS W-FE,MIN CHEWABLE TABLET 1 TABLET PO (07:55)
[2024-03-10] MEDS: busPIRone HCL 10 MG TABLET PO ×2 (07:55→17:23)
[2024-03-10] MEDS: ENOXAPARIN 30 MG/0.3 ML SYRINGE SUB-Q (07:55)
[2024-03-10] MEDS: PANTOPRAZOLE 40 MG TABLET PO ×2 (07:55→20:10)
[2024-03-10] MEDS: ESCITALOPRAM OXALATE 5 MG TABLET PO (07:55)
--- NOTE | 2024-03-10 12:44 | PM.IMPN ---
Progress Note: A&P Assessment and Plan (1) Acute exacerbation of chronic obstructive pulmonary disease: Code(s): J44.1 - Chronic obstructive pulmonary disease with (acute) exacerbation Status: Acute Assessment and Plan: The patient presented to the emergency department for evaluation of shortness of breath. CXR showing emphysema. She had a CT chest on 03/02 showing emphysema and stable pulmonary nodules. She did have moderate distal esophageal and gastric wall edema. ABG 7.44/52/84 on 1L. She is currently at her baseline oxygen requirement (1L at rest, 3L with exertion) and appears in no distress. No wheezing on exam Speech therapy did not note any concerns Echo pending Resumed Prednisone and Azithromycin to finish the course from last hospitalization. Continue bronchodilators. Continue Incruse Okay for discharge when location determined (2) Hyperglycemia: Code(s): R73.9 - Hyperglycemia, unspecified Status: Acute Assessment and Plan: A1c 5.9%. The patient's blood glucose was reviewed on 03/10 Glucose better off steroids. Follow (3) Dementia: Qualifiers: Dementia behavioral or psychological symptom: with anxiety Dementia severity: mild Dementia type: unspecified type Qualified Code(s): F03.A4 - Unspecified dementia, mild, with anxiety Code(s): F03.90 - Unspecified dementia, unspecified severity, without behavioral disturbance, psychotic disturbance, mood disturbance, and anxiety Status: Acute Assessment and Plan: Patient with dementia that family feel is much worse. She has tried medications for dementia in the past but can not tolerate. She was discharged with Seroquel and Namenda but family did not want to continue these medications since maybe contributing to her mental status changes. Suspect her worsening mental status was from new location and the one time doses of Seroquel/Ativan given the other day. We have resumed Buspirone and Trazodone. Mental status stable. (4) Anxiety: Code(s): F41.9 - Anxiety disorder, unspecified Status: Acute Assessment and Plan: As above. Home meds resumed Plan Possible esophagitis - as seen by CT. Continue PPI DVT prophylaxis - Lovenox Code status - Full Disp - PT/OT; awaiting placement. Subjective Date/time seen: 03/10/24 12:44 Interval history: 78yo female with dementia and COPD here for SOB. Patient is alert but confused and unable to provide hx. No family in the room. Staff state she slept poorly. Review of Systems Review of Systems: ROS unobtainable: Yes unobtainable due to mental status Exam Narrative: AF 99.0 106/88 98 18 96% 1L Gen - NARD lying flat in bed Chest - fe basilar rhonchi o/w clear. CV - RRR S1/S2 Abd - Soft, scaphoid, +BS Ext - No pedal edema Neuro - Alert but confused. Psych - Nml mood but anxious affect Skin - Warm and dry Objective Data Vital Signs Vital Signs: Vital Signs - 24 hr 03/09/24 13:00 03/09/24 13:08 03/09/24 14:00 Temperature 98.1 F Pulse Rate 102 H 100 103 H Respiratory Rate 18 18 20 Blood Pressure 152/77 H Pulse Oximetry 96 Oxygen Delivery Oxygen Flow Rate Fraction of Inspired Oxygen 03/09/24 19:29 03/09/24 20:05 03/09/24 20:20 Temperature 99.4 F Pulse Rate 96 96 100 Respiratory Rate 20 18 18 Blood Pressure 126/74 Pulse Oximetry 94 Oxygen Delivery Oxygen Flow Rate Fraction of Inspired Oxygen 03/09/24 20:00 03/09/24 22:00 03/10/24 03:32 Temperature 99.0 F Pulse Rate 100 100 99 Respiratory Rate 18 20 18 Blood Pressure 100/56 L Pulse Oximetry 94 91 Oxygen Delivery Nasal Cannula Oxygen Flow Rate 1 Fraction of Inspired Oxygen 03/10/24 05:51 03/10/24 07:42 03/10/24 08:00 Temperature 99.0 F Pulse Rate 100 98 Respiratory Rate 20 18 Blood Pressure 106/88 Pulse Oximetry 96 96 Oxygen Delivery Nasal Cannula Oxygen Flow Rate 1 F
[2024-03-10] MEDS: traZODone HCL 50 MG TABLET PO (20:10)
[2024-03-10] MEDS: MELATONIN 5 MG TABLET PO (20:10)
[2024-03-11] VITALS (9 sets, daily range): BP systolic 93–114; BP diastolic 57–88; PULSE 86–98; RESP 18–20; TEMP 36.3–36.8; O2SAT 91–98
[2024-03-11] MEDS: ALBUTEROL SULFATE NEB 2.5 MG/3 ML INH INHALATION ×2 (01:20→07:01)
[2024-03-11] MEDS: UMECLIDINIUM BROMIDE 62.5 MCG ELLIPTA 1 PUFF INHALATION (07:01)
[2024-03-11] MEDS: PANTOPRAZOLE 40 MG TABLET PO ×2 (10:30→21:01)
[2024-03-11] MEDS: busPIRone HCL 10 MG TABLET PO ×2 (10:30→17:44)
[2024-03-11] MEDS: ENOXAPARIN 40 MG/0.4 ML SYRINGE SUB-Q (10:30)
[2024-03-11] MEDS: MULTIVITS W-FE,MIN CHEWABLE TABLET 1 TABLET PO (10:30)
[2024-03-11] MEDS: ESCITALOPRAM OXALATE 5 MG TABLET PO (10:30)
--- NOTE | 2024-03-11 13:26 | PM.IMPN ---
Progress Note: A&P Assessment and Plan (1) Acute exacerbation of chronic obstructive pulmonary disease: Code(s): J44.1 - Chronic obstructive pulmonary disease with (acute) exacerbation Status: Acute Assessment and Plan: The patient presented to the emergency department for evaluation of shortness of breath. CXR showing emphysema. She had a CT chest on 03/02 showing emphysema and stable pulmonary nodules but no PE. She did have moderate distal esophageal and gastric wall edema. ABG 7.44/52/84 on 1L. Speech therapy did not note any concerns. She is currently at her baseline oxygen requirement (1L at rest, 3L with exertion) and appears in no distress. Did have higher O2 requirement overnight but back down to 2L. No wheezing on exam. Follow for now. Echo pending Resumed Prednisone and Azithromycin to finish the course from last hospitalization. Continue bronchodilators prn. Continue Incruse Okay for discharge when location determined (2) Hyperglycemia: Code(s): R73.9 - Hyperglycemia, unspecified Status: Acute Assessment and Plan: A1c 5.9%. The patient's blood glucose was reviewed on 03/11 Glucose better now that she is off steroids. Follow (3) Dementia: Qualifiers: Dementia behavioral or psychological symptom: with anxiety Dementia severity: mild Dementia type: unspecified type Qualified Code(s): F03.A4 - Unspecified dementia, mild, with anxiety Code(s): F03.90 - Unspecified dementia, unspecified severity, without behavioral disturbance, psychotic disturbance, mood disturbance, and anxiety Status: Acute Assessment and Plan: Patient with dementia that family feel is much worse. She has tried medications for dementia in the past but can not tolerate. She was discharged with Seroquel and Namenda but family did not want to continue these medications since maybe contributing to her mental status changes. Suspect her worsening mental status was from new location and/or the one time doses of Seroquel/Ativan given the other day and/or steroids We have resumed Buspirone and Trazodone. Mental status stable. (4) Anxiety: Code(s): F41.9 - Anxiety disorder, unspecified Status: Acute Assessment and Plan: As above. Home meds resumed Plan Possible esophagitis - as seen by CT. Continue PPI DVT prophylaxis - Lovenox Code status - Full Disp - PT/OT; awaiting placement. Subjective Date/time seen: 03/11/24 13:26 Interval history: 78yo female with dementia and COPD here for SOB. Patient is alert but confused and unable to provide hx. Review of Systems Review of Systems: ROS unobtainable: Yes unobtainable due to mental status Exam Narrative: AF 98.2 106/67 96 20 92% 2L Gen - NARD Chest - clear bilaterally, nml RR CV - RRR S1/S2 Abd - Soft, scaphoid, +BS Ext - No pedal edema Neuro - Alert but confused. Psych - Nml mood but anxious affect Skin - Warm and dry Objective Data Vital Signs Vital Signs: Vital Signs - 24 hr 03/10/24 13:39 03/10/24 13:35 03/10/24 13:42 Temperature Pulse Rate 90 87 Respiratory Rate 18 Blood Pressure Pulse Oximetry 91 Oxygen Delivery Nasal Cannula Oxygen Flow Rate 2 Fraction of Inspired Oxygen 03/10/24 14:00 03/10/24 19:45 03/10/24 19:55 Temperature 97.9 F Pulse Rate 104 H 104 H Respiratory Rate 19 19 Blood Pressure 106/65 Pulse Oximetry 93 93 93 Oxygen Delivery Nasal Cannula Nasal Cannula Oxygen Flow Rate 1 4 Fraction of Inspired Oxygen 03/10/24 19:55 03/10/24 20:02 03/10/24 21:11 Temperature 97.5 F L Pulse Rate 100 103 H 104 H Respiratory Rate 20 20 16 Blood Pressure 120/79 Pulse Oximetry 95 Oxygen Delivery Oxygen Flow Rate Fraction of Inspired Oxygen 03/11/24 01:21 03/11/24 01:24 03/11/24 06:00 Temperature 98.2 F Pulse Rate 91 98 90 Respiratory Rate 20 20 18 Blood Pressure 106/67 Pulse Oxime
[2024-03-11] MEDS: traZODone HCL 50 MG TABLET PO (21:01)
[2024-03-11] MEDS: MELATONIN 5 MG TABLET PO (21:01)
[2024-03-12] VITALS (7 sets, daily range): BP systolic 117–140; BP diastolic 61–78; PULSE 79–98; RESP 18–24; TEMP 36.3–37.2; O2SAT 91–98
[2024-03-12 06:44] LABS: Basophils Percent Auto 0.2 % (0.2-1.2); Eosinophils Absolute Auto 0.3 K/mm3 (0-0.3); Eosinophils Percent Auto 3.4 % (0-4.4); Hematocrit 44.4 % (37.0-47.0); Hemoglobin 13.2 g/dL (12.0-15.0); Immature Granulocyte Absolute 0.06 K/mm3 (0.00-0.031); Immature Granulocyte Percent A 0.7 % (0-0.5); Lymphocytes Absolute Auto 0.85 K/mm3 (0.9-3.2); Lymphocytes Percent Auto 9.5 % (18.3-44.2); Mean Corpuscular HGB Conc 29.7 g/dl (32-36); Mean Corpuscular Hemoglobin 28.9 pg (26-34); Mean Corpuscular Volume 97.2 fl (80-100); Mean Platelet Volume 8.4 fl (7.4-10.4); Monocytes Absolute Auto 0.8 K/mm3 (0.1-0.6); Monocytes Percent Auto 8.4 % (2.6-8.5); Neutrophils Percent Auto 77.8 % (45.5-73.1); Platelet Count Result 276 k/mm3 (150-375); Red Blood Count 4.57 M/mm3 (4.2-5.4); Red Cell Distribution Width 13.7 % (11.5-14.5); White Blood Count 8.9 K/mm3 (4.5-10.0)
[2024-03-12 06:55] LABS: Alanine Aminotransferase 27 U/L (6-35); Albumin Level 3.3 g/dL (3.5-5.1); Alkaline Phosphatase 67 U/L (38-126); Aspartate Amino Transferase 33 U/L (14-36); Bilirubin,Total 0.6 mg/dL (0.2-1.3); Blood Urea Nitrogen 19 mg/dL (7-17); Calcium 8.3 mg/dL (8.4-10.2); Carbon Dioxide > 40 mmol/L (22-30); Chloride 94 mmol/L (98-107); Estimated CRCL calculation 25 ml/min; Estimated Glomerular Filt Rate 54; Glucose 90 mg/dL (65-110); Magnesium 2.2 mg/dL (1.6-2.3); Phosphorus 3.2 mg/dL (2.5-4.5); Potassium 3.9 mmol/L (3.4-5.0); Sodium 136 mmol/L (137-145)
[2024-03-12 07:29] LABS: Hypochromasia 1+; Platelet Estimate Adequate (Adequate)
[2024-03-12 07:39] LABS: Schistocytes None Seen
[2024-03-12] MEDS: UMECLIDINIUM BROMIDE 62.5 MCG ELLIPTA 1 PUFF INHALATION (08:50)
[2024-03-12] MEDS: ALBUTEROL SULFATE (*SP) AEROSOL 1 PUFF 2 PUFF INHALATION (08:51)
[2024-03-12] MEDS: PANTOPRAZOLE 40 MG TABLET PO ×2 (09:21→20:38)
[2024-03-12] MEDS: busPIRone HCL 10 MG TABLET PO ×2 (09:21→16:51)
[2024-03-12] MEDS: MULTIVITS W-FE,MIN CHEWABLE TABLET 1 TABLET PO (09:21)
[2024-03-12] MEDS: ENOXAPARIN 30 MG/0.3 ML SYRINGE SUB-Q (09:21)
[2024-03-12] MEDS: ESCITALOPRAM OXALATE 5 MG TABLET PO (09:21)
--- NOTE | 2024-03-12 14:37 | PM.DS ---
DS: Discharge Diagnosis Discharge Diagnosis (1) Acute exacerbation of chronic obstructive pulmonary disease: Code(s): J44.1 - Chronic obstructive pulmonary disease with (acute) exacerbation Status: Acute Assessment and Plan: The patient presented to the emergency department for evaluation of shortness of breath. CXR showing emphysema. She had a CT chest on 03/02 showing emphysema and stable pulmonary nodules but no PE. She did have moderate distal esophageal and gastric wall edema. ABG 7.44/52/84 on 1L. Speech therapy did not note any concerns. She is currently at her baseline oxygen requirement (1L at rest, 3L with exertion) and appears in no distress. Did have higher O2 requirement overnight but back down to 2L. No wheezing on exam. Follow for now. Echo pending Resumed Prednisone and Azithromycin to finish the course from last hospitalization. Continue bronchodilators prn. Continue Incruse Okay for discharge when location determined (2) Hyperglycemia: Code(s): R73.9 - Hyperglycemia, unspecified Status: Acute Assessment and Plan: A1c 5.9%. The patient's blood glucose was reviewed on 03/11 Glucose better now that she is off steroids. Follow (3) Dementia: Qualifiers: Dementia behavioral or psychological symptom: with anxiety Dementia severity: mild Dementia type: unspecified type Qualified Code(s): F03.A4 - Unspecified dementia, mild, with anxiety Code(s): F03.90 - Unspecified dementia, unspecified severity, without behavioral disturbance, psychotic disturbance, mood disturbance, and anxiety Status: Acute Assessment and Plan: Patient with dementia that family feel is much worse. She has tried medications for dementia in the past but can not tolerate. She was discharged with Seroquel and Namenda but family did not want to continue these medications since maybe contributing to her mental status changes. Suspect her worsening mental status was from new location and/or the one time doses of Seroquel/Ativan given the other day and/or steroids We have resumed Buspirone and Trazodone. Mental status stable. (4) Anxiety: Code(s): F41.9 - Anxiety disorder, unspecified Status: Acute Assessment and Plan: As above. Home meds resumed Plan Possible esophagitis - as seen by CT. Continue PPI DVT prophylaxis - Lovenox Code status - Full Disp - PT/OT; awaiting placement. DS: Summary Time Spent with Patient Time attestation: Total time spent providing and/or coordinating discharge services: Exam Narrative: AF 98.2 106/67 96 20 92% 2L Gen - NARD Chest - clear bilaterally, nml RR CV - RRR S1/S2 Abd - Soft, scaphoid, +BS Ext - No pedal edema Neuro - Alert but confused. Psych - Nml mood but anxious affect Skin - Warm and dry DS: Data Data Completed and Pending Labs on day of discharge: Labs from last 24 hours 03/12/24 06:36 WBC 8.9 RBC 4.57 Hgb 13.2 Hct 44.4 MCV 97.2 MCH 28.9 MCHC 29.7 L RDW 13.7 Plt Count 276 MPV 8.4 Immature Gran % (Auto) 0.7 H Neut % (Auto) 77.8 H Lymph % (Auto) 9.5 L [place] % (Auto) 8.4 Eos % (Auto) 3.4 Baso % (Auto) 0.2 Lymph # (Auto) 0.85 L [place] # (Auto) 0.8 H Eos # (Auto) 0.3 Baso # (Auto) 0.0 Abs Immat Gran (auto) 0.06 H Absolute Neuts (auto) 7.0 H Absolute Nucleated RBC 0.000 Nucleated RBC % 0.0 Platelet Estimate Adequate Hypochromasia 1+ Schistocytes None seen Sodium 136 L Potassium 3.9 Chloride 94 L Carbon Dioxide > 40 H Anion Gap BUN 19 H Creatinine 1.00 Estim Creat Clear Calc 25 Estimated GFR 54 L Glucose 90 Calcium 8.3 L Phosphorus 3.2 Magnesium 2.2 Total Bilirubin 0.6 AST 33 ALT 27 Alkaline Phosphatase 67 Total Protein 6.0 L Albumin 3.3 L Discharge Plan Discharge Attending physician on discharge: Brittni Wooten Discharging Clinician: Brittni Wooten Anticipated Discharge Date/[place]
--- NOTE | 2024-03-12 15:21 | PM.IMPN ---
Progress Note: A&P Assessment and Plan (1) Acute exacerbation of chronic obstructive pulmonary disease: Code(s): J44.1 - Chronic obstructive pulmonary disease with (acute) exacerbation Status: Acute Assessment and Plan: The patient presented to the emergency department for evaluation of shortness of breath. CXR showing emphysema. She had a CT chest on 03/02 showing emphysema and stable pulmonary nodules but no PE. She did have moderate distal esophageal and gastric wall edema. ABG 7.44/52/84 on 1L. Speech therapy did not note any concerns. She is currently at her baseline oxygen requirement (1L at rest, 3L with exertion) and appears in no distress. Did have higher O2 requirement overnight but back down to 2L. No wheezing on exam. Follow for now. Echo pending Resumed Prednisone and Azithromycin to finish the course from last hospitalization. Continue bronchodilators prn. Continue Incruse await approval for placement (2) Hyperglycemia: Code(s): R73.9 - Hyperglycemia, unspecified Status: Acute Assessment and Plan: A1c 5.9%. The patient's blood glucose was reviewed on 03/11 Glucose better now that she is off steroids. (3) Dementia: Qualifiers: Dementia behavioral or psychological symptom: with anxiety Dementia severity: mild Dementia type: unspecified type Qualified Code(s): F03.A4 - Unspecified dementia, mild, with anxiety Code(s): F03.90 - Unspecified dementia, unspecified severity, without behavioral disturbance, psychotic disturbance, mood disturbance, and anxiety Status: Acute Assessment and Plan: Patient with dementia that family feel is much worse. She has tried medications for dementia in the past but can not tolerate. She was discharged with Seroquel and Namenda but family did not want to continue these medications since maybe contributing to her mental status changes. Suspect her worsening mental status was from new location and/or the one time doses of Seroquel/Ativan given the other day and/or steroids We have resumed Buspirone and Trazodone. Mental status confused state pt known to have dementia (4) Anxiety: Code(s): F41.9 - Anxiety disorder, unspecified Status: Acute Assessment and Plan: As above. Home meds resumed Plan Possible esophagitis - as seen by CT. Continue PPI Subjective Date/time seen: 03/12/24 15:21 Interval history: 78yo female with dementia and COPD here for SOB. Patient is alert but confused and unable to provide hx. Review of Systems Review of Systems: Mild sob pt is poor historian due to her disorientation Exam Narrative: Generally: elderly lady Chest - clear bilaterally, nml RR CV - RRR S1/S2 Abd - Soft, scaphoid, +BS Ext - No pedal edema Neuro - Alert but confused. Psych - Nml mood but anxious affect Skin - Warm and dry Objective Data Vital Signs Vital Signs: Vital Signs - 24 hr 03/11/24 20:49 03/11/24 20:00 03/12/24 05:39 Temperature 36.7 C 36.9 C Pulse Rate 86 90 Respiratory Rate 18 18 Blood Pressure 114/88 117/67 Pulse Oximetry 94 94 93 Oxygen Delivery Nasal Cannula Oxygen Flow Rate 2 03/12/24 08:00 03/12/24 08:30 03/12/24 08:55 Temperature Pulse Rate 98 Respiratory Rate 22 H Blood Pressure Pulse Oximetry 91 96 Oxygen Delivery Nasal Cannula Nasal Cannula Oxygen Flow Rate 1 3 03/12/24 08:55 Temperature Pulse Rate 95 Respiratory Rate 22 H Blood Pressure Pulse Oximetry 96 Oxygen Delivery Nasal Cannula Oxygen Flow Rate 3 Intake/Output Intake/Output: Intake & Output 03/09/24 03/10/24 03/11/24 03/12/24 23:59 23:59 23:59 23:59 Intake Total 241 591 7458 240 Output Total 0 Balance 984 413 5048 240 Meds/Results Medications: Active Medications Generic Name Dose Route Start Last Admin Trade Name Freq PRN Reason Stop Dose Admin Albuterol 2 puff 03/08/24 08:10 03/12/24 08:51
[2024-03-12] MEDS: traZODone HCL 50 MG TABLET PO (20:38)
[2024-03-12] MEDS: MELATONIN 5 MG TABLET PO (20:38)
[2024-03-13 05:35] VITALS: BP 95/80; PULSE 82; RESP 20; TEMP 36.4; O2SAT 95
[2024-03-13 05:52] VITALS: BP 112/51
[2024-03-13 08:00] VITALS: O2SAT 92
[2024-03-13] MEDS: busPIRone HCL 10 MG TABLET PO (08:22)
[2024-03-13] MEDS: ESCITALOPRAM OXALATE 5 MG TABLET PO (08:22)
[2024-03-13] MEDS: PANTOPRAZOLE 40 MG TABLET PO (08:22)
[2024-03-13] MEDS: ENOXAPARIN 30 MG/0.3 ML SYRINGE SUB-Q (08:26)
[2024-03-13] MEDS: UMECLIDINIUM BROMIDE 62.5 MCG ELLIPTA 1 PUFF INHALATION (09:03)
[2024-03-13 09:04] VITALS: O2SAT 86
[2024-03-13 09:11] VITALS: O2SAT 92
--- NOTE | 2024-03-13 10:08 | PM.DS ---
DS: Admitting Diagnosis Discharge Date 03/13/2024 Admitting Diagnosis Shortness of breath. DS: Discharge Diagnosis Discharge Diagnosis (1) Acute exacerbation of chronic obstructive pulmonary disease: Code(s): J44.1 - Chronic obstructive pulmonary disease with (acute) exacerbation Status: Acute Assessment and Plan: The patient presented to the emergency department for evaluation of shortness of breath. CXR showing emphysema. She had a CT chest on 03/02 showing emphysema and stable pulmonary nodules but no PE. She did have moderate distal esophageal and gastric wall edema. Continue bronchodilators prn. Continue Incruse await approval for placement ok to dc with inhalers and oxygen (2) Hyperglycemia: Code(s): R73.9 - Hyperglycemia, unspecified Status: Acute Assessment and Plan: A1c 5.9%. The patient's blood glucose was reviewed on 03/11 Glucose better now that she is off steroids. (3) Dementia: Qualifiers: Dementia behavioral or psychological symptom: with anxiety Dementia severity: mild Dementia type: unspecified type Qualified Code(s): F03.A4 - Unspecified dementia, mild, with anxiety Code(s): F03.90 - Unspecified dementia, unspecified severity, without behavioral disturbance, psychotic disturbance, mood disturbance, and anxiety Status: Acute Assessment and Plan: Patient with dementia that family feel is much worse. She has tried medications for dementia in the past but can not tolerate. She was discharged with Seroquel and Namenda but family did not want to continue these medications since maybe contributing to her mental status changes. Suspect her worsening mental status was from new location and/or the one time doses of Seroquel/Ativan given the other day and/or steroids We have resumed Buspirone and Trazodone. Mental status confused state pt known to have dementia (4) Anxiety: Code(s): F41.9 - Anxiety disorder, unspecified Status: Acute Assessment and Plan: As above. Home meds resumed Plan Possible esophagitis - as seen by CT. pt treated with PPI DS: Summary Hospital Course Hospital Course: 78yo female with dementia and COPD here for SOB. The patient presented to the emergency department for evaluation of shortness of breath. CXR showing emphysema. She had a CT chest on 03/02 showing emphysema and stable pulmonary nodules but no PE. She did have moderate distal esophageal and gastric wall edema. ABG 7.44/52/84 on 1L. Speech therapy did not note any concerns. She is currently at her baseline oxygen requirement (1L at rest, 3L with exertion) and appears in no distress. Did have higher O2 requirement overnight but back down to 2L. No wheezing on exam. Follow for now. Echo pending Resumed Prednisone and Azithromycin to finish the course from last hospitalization. Continue bronchodilators prn. Continue Incruse await approval for placement ok to dc with inhalers and oxygen Patient is alert but confused and unable to provide hx. pt is better ok to DC to SNF Time Spent with Patient Time attestation: Total time spent providing and/or coordinating discharge services:50 minutes on day of dc Exam Narrative: Generally: elderly lady Chest - clear bilaterally, nml RR CV - RRR S1/S2 Abd - Soft, scaphoid, +BS Ext - No pedal edema Neuro - Alert but confused. Psych - Nml mood but anxious affect Skin - Warm and dry Discharge Plan Discharge Attending physician on discharge: Brittni Wooten Discharging Clinician: Brittni Wooten Anticipated Discharge Date/Time: 03/13/24 10:08 Patient Disposition: SNF Activity: as tolerated Diet: heart healthy Discharge Instructions: dc with oxygen 1 liter at rest 3 liters on ambulation Stand Alone Forms: General Discharge Information Follow-up/Referrals: Ricky Bauer MD [Primary Care Provider] - Discharge Medications: New albuter
[2024-03-13 12:09] LABS: SARS-CoV-2 RNA PCR Negative (Negative)
== END 2024-03-13 14:40 ==
LOC: ANHED 17:02 → ANH3MEDSUR 18:55
PROVIDERS: Physician Assistant; Admitting Provider Internal Medicine; Emergency Provider Family Medicine; PCP Internal Medicine; Visit Provider Family Medicine
DX: J44.1 Chronic obstructive pulmonary disease with (acute) exacerbation (principal); F03.90 Unspecified dementia, unspecified severity, without behavioral disturbance, psychotic disturbance, mood disturbance, and anxiety; R73.9 Hyperglycemia, unspecified; F03.A4 Unspecified dementia, mild, with anxiety; G40.909 Epilepsy, unspecified, not intractable, without status epilepticus; I10 Essential (primary) hypertension; I08.2 Rheumatic disorders of both aortic and tricuspid valves; Z11.52 Encounter for screening for COVID-19; Z87.891 Personal history of nicotine dependence
CPT/HCPCS: 36415; 36600; 71046; 80048; 80053; 82375; 82805; 83036; 83050; 83735; 84100; 85025; 87635; 92610; 93005; 93306; 94640; 96361; 96372; 96374; 96375; 97110; 97116; 97161; 97165; 97530; 97535; 99285; A9270; G0378; J1650; J2919; J7030; J7512

== ENCOUNTER 2024-04-20 05:43 | Observation (INO) | payer MEDICARE, MEDICAID, SELFPAY ==
[2024-04-20] VITALS (20 sets, daily range): BP systolic 95–144; BP diastolic 56–84; PULSE 123–139; RESP 21–50; TEMP 36.3; O2SAT 68–100
--- NOTE | ~2024-04-20 | XR_ITS ---
EXAMINATION: XR chest 1V portable DATE: 04/20/2024 06:25 INDICATION: Hypoxia. TECHNIQUE: A single frontal view of the chest was obtained. COMPARISON: Chest 2 views 03/07/2024, chest CT 03/02/2024 FINDINGS: The lungs are hyperexpanded with interstitial opacities, consistent with emphysema. No pleu ral effusion or pneumothorax. The heart size is normal. The central pulmonary arteries are enlarged, consistent with pulmonary arterial hypertension. IMPRESSION: 1. Emphysema. Reviewed, dictated and finalized at location A. IMPRESSION: 1. Emphysema.
--- NOTE | 2024-04-20 05:51 | ECG_ITS ---
Test Date: 2024-04-20 05:59:02 Measurements Intervals [place] Rate: 127 P: 88 MS: 152 QRS: 136 QRSD: 126 T: 52 QT: 300 QTc: 438 Interpretive Statements SINUS TACHYCARDIA RIGHT AXIS DEVIATION [QRS AXIS > 100] RIGHT BUNDLE BRANCH BLOCK [120+ ms QRS DURATION, UPRIGHT V1, 40+ ms S IN I/aVL/V4/V5/V6] BASELINE ARTIFACT LIMITS INTERPRETATION Compared to ECG 03/07/2024 13:50:22 NO SIGNIFICANT CHANGES Electronically Signed On 04-22-2024 11:56:13 CDT by Hank Streeter M.D.
--- NOTE | 2024-04-20 05:53 | ED.SOB ---
HPI - SOB/Dyspnea General Chief Complaint: Shortness of Breath/Dyspnea <Barak Flores MD - Last Filed: 04/20/24 07:00> Stated Complaint: shortness of breath <Barak Flores MD - Last Filed: 04/20/24 07:00> Time Seen by Provider: 04/20/24 05:50 <Barak Flores MD - Last Filed: 04/20/24 07:00> Source: patient and family <Barak Flores MD - Last Filed: 04/20/24 07:00> Mode of arrival: wheelchair <Barak Flores MD - Last Filed: 04/20/24 07:00> Limitations: clinical condition and dementia <aBrak Flores MD - Last Filed: 04/20/24 07:00> History of Present Illness HPI Narrative: This is a 78-year-old female, with history of COPD and dementia on home oxygen (unknown level), brought in by family from her residential for shortness of breath for the past 2 days. Patient's daughter, at bedside, states she was called by the patient's residential for shortness of breath. The patient denies chest pain, lower extremity swelling or known sick contacts. <Barak Flores MD - Last Filed: 04/20/24 07:00> Related Data Home Medications: Home Medications Medication Instructions Recorded Confirmed trazodone 50 mg tablet 50 mg PO HS 11/24/23 03/07/24 buspirone 10 mg tablet 10 mg PO BID 03/02/24 03/07/24 escitalopram oxalate 5 mg tablet 5 mg PO DAILY 03/02/24 03/07/24 multivitamin with minerals-folic 1 tablet PO DAILY 03/02/24 03/07/24 acid 80 mcg chewable tablet (Centrum Adult 50 Plus) <Barak Flores MD - Last Filed: 04/20/24 07:00> Allergies/Adverse Reactions: Allergies Allergy/AdvReac Type Severity Reaction Status Date / Time memantine [From Namenda] AdvReac Confusion Verified 03/08/24 19:32 quetiapine [From Seroquel] AdvReac Confusion Verified 03/08/24 19:32 <Barak Flores MD - Last Filed: 04/20/24 07:00> Review of Systems Review of Systems: All systems reviewed & are unremarkable except as noted in HPI and below <Barak Flores MD - Last Filed: 04/20/24 07:00> PMFSH Past Medical History Medical History: Medical History Anxiety Chronic obstructive pulmonary disease Dementia Hypertension Seizure disorder <Barak Flores MD - Last Filed: 04/20/24 07:00> Surgical History Surgical History: Surgical History History of cataract extraction History of tonsillectomy <Barak Flores MD - Last Filed: 04/20/24 07:00> Family History Family History: Family History Other Family history non-contributory <Barak Flores MD - Last Filed: 04/20/24 07:00> Social History Social History: Social History Social History: Healthcare power of attorney recruiter: Ketan Moser. Code status: Full code. Smoking packs per day: 1 Smoking cigarettes per day: 20.0 Years smoked: 50 Smoking pack-years: 50.00 Smoking status: Former smoker Tobacco type: cigarettes Second hand tobacco smoke exposure: No Smoking end date: 11/06/14 Alcohol intake: never Substance use: never Substance use type: does not use Do You Feel Safe in your Home?: Yes Lack of Transportation: No Lack of Food: Never True Current Housing: I Have Housing Concerned About Future Housing: No Difficulty Paying Gas/Electric Bills: No Difficulty Paying for Meds: No Currently Unemployed: No Education: Don't Know Difficulty w/ Childcare or Family Care: No Spiritual care concerns: No <Barak Flores MD - Last Filed: 04/20/24 07:00> Exam Narrative: GENERAL: Well-developed, thin, in moderate to severe distress HEAD: Normocephalic, atraumatic. EYES: PERRLA and EOMI. ENT: Nares clear, no rhinorrhea or epistaxis. Mucous membranes moist. Oropharynx without tonsillar hype
[2024-04-20] MEDS: LORazepam INJ (*CRX) 2 MG/ML VIAL 0.5 MG IV PUSH (05:59)
[2024-04-20 06:02] LABS: Basophils Absolute Auto 0.03 K/mm3 (0.00-0.10); Basophils Percent Auto 0.2 % (0.0-1.0); Eosinophils Absolute Auto 0.01 K/mm3 (0.02-0.50); Eosinophils Percent Auto 0.1 % (1.0-6.0); Hematocrit 40.5 % (35.0-42.0); Hemoglobin 12.3 g/dL (11.7-13.8); Immature Granulocyte Absolute 0.08 K/mm3 (0.00-0.00); Immature Granulocyte Percent A 0.5 % (0.0-0.0); Lymphocytes Absolute Auto 0.37 K/mm3 (1.10-4.50); Lymphocytes Percent Auto 2.2 % (18.0-42.0); Mean Corpuscular HGB Conc 30.4 g/dL (32-36); Mean Corpuscular Hemoglobin 29.3 pg (27.0-31.0); Mean Corpuscular Volume 96.4 fL (78.0-102.0); Mean Platelet Volume 8.5 fl (9.2-11.8); Monocytes Absolute Auto 1.25 K/mm3 (0.10-0.90); Monocytes Percent Auto 7.4 % (2.0-11.0); Neutrophils Absolute Auto 15.11 K/mm3 (1.70-7.20); Neutrophils Percent Auto 89.6 % (50.0-70.0); Platelet Count Result 274 K/mm3 (150-420); Red Cell Distribution Width 12.6 % (11.6-14.4); White Blood Count 16.9 K/mm3 (4.8-10.8)
[2024-04-20] MEDS: IPRATROPIUM 0.5 MG/ALBUTEROL SULFATE 2.5 MG AMPUL.NEB 3 ML 6 ML INHALATION (06:04)
[2024-04-20 06:14] LABS: Prothrombin Time 10.7 Seconds (9.50-12.1)
[2024-04-20 06:24] LABS: Base Excess ABG 9.4 mmol/L (0-2); HCO3 ABG 40.1 mmol/L (23-29); Oxygen Content ABG 18.2 %vol (16.0-22.0); Oxygen Saturation ABG 99.2 % (95-97); Oxyhemoglobin 98.5 % (94-100); PO2 ABG 271.4 mmHg (75-85); pH ABG 7.25 (7.35-7.45)
[2024-04-20 06:24] LABS: D Dimer 1.56 mg/L (0.19-0.50)
[2024-04-20 06:25] LABS: Alanine Aminotransferase 23 U/L (14-59); Albumin Level 2.8 g/dL (3.4-5.0); Alkaline Phosphatase 106 U/L (46-116); Anion Gap 4 mmol/L (4-12); Aspartate Amino Transferase 21 U/L (15-37); Bilirubin,Total 0.4 mg/dL (0.00-1.00); Blood Urea Nitrogen 19 mg/dL (7-18); Calcium 9.6 mg/dL (8.5-10.1); Carbon Dioxide 37 mmol/L (21-32); Chloride 96 mmol/L (98-108); Estimated Glomerular Filt Rate 56; Glucose 125 mg/dL (70-99); NT Pro B Type Natriuretic Pept 843 pg/mL (0-450); Osmolality Calculated 287 mOsm/kg (285-295); Potassium 4.7 mmol/L (3.5-5.1); Sodium 137 mmol/L (136-145); Total Protein 7.8 g/dL (6.4-8.2); Troponin I 9.8 ng/L (0.00-60.4)
[2024-04-20 06:27] LABS: Device SIMPLE MASK; Modified Allen's Test Pass; Site Drawn LEFT RADIAL
[2024-04-20 07:08] LABS: SARS-CoV-2 RNA PCR Negative (Negative)
[2024-04-20 07:09] LABS: Influenza A QL RT-PCR Negative (Negative); Influenza B QL RT-PCR Negative (Negative); RSV RNA, RT-PCR Negative (Negative)
[2024-04-20] MEDS: DOXYCYCLINE 100 MG/NS 100 ML 100 MG/100 ML BAG IVPB (07:41)
--- NOTE | 2024-04-20 07:50 | PC.NURSE ---
REPORT TO FRANSISCO PEREZ
--- NOTE | 2024-04-20 08:00 | ADMGEN ---
This patient, Polina Tavarez, was admitted to 2nd Floor Room 226-1. Patient/family oriented to hospital policies and general routines including ID bracelet, bed and alarms, visiting hours, pain management, procedures, bathroom and other care routines, personal items, smoking policy, room service/diet, and visiting hours. Patient is agitated, trying to pull off BiPap, Family lying on patient to hold patient down. Spoke with Carmen MOODY, here in room, discussed with family plan of care. Family voiced desire for hospice. Information on how to activate the Rapid Response Team has been discussed. Patient/Family are encouraged to report perceived risks to care and to ask questions if they do not understand what they are told or what they should do.
--- NOTE | 2024-04-20 08:10 | PC.NURSE ---
BiPap on: Settings reviewed with [employer]: BiPap: Pressure Readin.9-12; R:35; VTE:243-300; Leak: 21.8; Diane RT verified setting WNL.
--- NOTE | 2024-04-20 08:30 | PC.NURSE ---
Patient is very agitated; unable to answer questions, family defers admission questions at this time.
[2024-04-20] MEDS: LORazepam INJ (*CRX) 2 MG/ML VIAL 1 MG IV PUSH (08:50)
--- NOTE | 2024-04-20 09:50 | PC.NURSE ---
BiPap: R. 26-28; VTE: 200-340, Pressure: 6-11.4; Leak: 30-32. Resting quietly, family remains at bedside.
[2024-04-20] MEDS: MORPHINE SULFATE (*CRX) 2 MG/ML INJ IV PUSH ×2 (10:30→14:05)
[2024-04-20] MEDS: SCOPOLAMINE 1 MG PATCH 1 PATCH TRANSDERM (11:06)
[2024-04-20] MEDS: LORazepam INJ (*CRX) 2 MG/ML VIAL IV PUSH ×2 (11:25→14:00)
--- NOTE | 2024-04-20 11:25 | PC.NURSE ---
Ativan 2mg IVP given for agitation. Family at bedside.
[2024-04-20] MEDS: MORPHINE SULFATE (*CRX) 2 MG/ML INJ 1 MG IV PUSH (11:35)
--- NOTE | 2024-04-20 13:30 | PC.NURSE ---
NRB P. 137, R. 16, Pox:110% family at bedside. Viktoriya, loading unit operator here and spoke with family. Plan for patient to go into hospice care.
--- NOTE | 2024-04-20 14:08 | PM.SD2 ---
Same Day Admit/Disch: HPI History of Present Illness Chief complaint: shortness of breath Narrative: Polina Tavarez is a 78 year old female presented to the emergency department acute respiratory failure and altered mental status via EMS from her prison facility. prison facility called EMS due to patient's respiratory distress and reported patient unresponsive. Patient has a known history of end-stage COPD hypertension, dementia, anxiety. when EMS arrived to the nursing care facility patient was found to be hypoxic with an oxygen saturation in the 60s she was placed on nasal cannula brought to the emergency department upon evaluation in the emergency department patient was immediately placed BiPAP however she was not tolerating well and was then placed on a non-rebreather. patient found to be altered with ABG showing acute respiratory failure with hypoxia and hypercapnia pH of 7.25, pCO2 of 93, bicarb of 40 and PA O2 of 271.4 per emergency department medical records discussed with Dr. Lawler patient's family did not want any aggressive measures and requested patient be placed as a DNR DNI comfort measures. Patient only responsive to painful stimuli but anxious and continues to try and remove her bipap. CXR showing lungs hyperextended with interstitial opacities secondary to patient's emphysema. upon assessment patient only responsive to painful stimuli, tachypnea, tachycardia, retractions, and continued respiratory distress. Spoke with family at bedside regarding patient's guarded prognosis at which family requested patient be placed on comfort measures with consult to hospice. It was requested to keep patient comfortable and remove BiPAP place patient oxygen for comfort. hospice care consulted patient to be discharged to hospice care. [facility] Past Medical History Medical History Anxiety Chronic obstructive pulmonary disease Dementia Hypertension Seizure disorder Surgical History Surgical History History of cataract extraction History of tonsillectomy Family History Family History Other Family history non-contributory Social History Social History Social History: Healthcare power of clinical educator: Ketan Moser. Code status: Full code. Smoking packs per day: 1 Smoking cigarettes per day: 20.0 Years smoked: 50 Smoking pack-years: 50.00 Smoking status: Former smoker Tobacco type: cigarettes Second hand tobacco smoke exposure: No Smoking end date: 11/06/14 Alcohol intake: never Substance use: never Substance use type: does not use Do You Feel Safe in your Home?: Yes Lack of Transportation: No Lack of Food: Never True Current Housing: I Have Housing Concerned About Future Housing: No Difficulty Paying Gas/Electric Bills: No Difficulty Paying for Meds: No Currently Unemployed: No Education: Don't Know Difficulty w/ Childcare or Family Care: No Spiritual care concerns: No Same Day Admit/Disch: Med Pre-admit Medications Home Medications Medication Instructions Recorded Confirmed Type trazodone 50 mg tablet 50 mg PO HS 11/24/23 04/20/24 History buspirone 10 mg tablet 10 mg PO BID 03/02/24 04/20/24 History escitalopram oxalate 5 mg tablet 10 mg PO DAILY 03/02/24 04/20/24 History multivitamin with minerals-folic 1 tablet PO DAILY 03/02/24 04/20/24 History acid 80 mcg chewable tablet (Centrum Adult 50 Plus) albuterol sulfate 90 mcg/actuation 2 puff inhalation Q6HRT PRN 03/12/24 04/20/24 Rx aerosol inhaler (Proventil HFA) Shortness Of Breath #1 inh melatonin 5 mg tablet 5 mg PO HS #30 tabs 03/12/24 04/20/24 Rx umeclidinium 62.5 mcg/actuation 1 inh inhalation DAILYRT #30 ea 03/12/24 04/20/24 Rx bliste
--- NOTE | 2024-04-20 14:39 | PC.NURSE ---
Patient is discharged to hospice care
== END 2024-04-20 14:39 | disposition hospice, inpatient (51) ==
LOC: CHSED 07:27 → CHS2ND 07:50
PROVIDERS: Preventive Medicine Aerospace Medicine; Admitting Provider Internal Medicine; Emergency Provider Emergency Medicine; PCP Family Medicine; Visit Provider Nurse Practitioner Family
DX: J96.01 Acute respiratory failure with hypoxia (principal); J96.02 Acute respiratory failure with hypercapnia; J43.9 Emphysema, unspecified; Z99.81 Dependence on supplemental oxygen; R41.82 Altered mental status, unspecified; F03.90 Unspecified dementia, unspecified severity, without behavioral disturbance, psychotic disturbance, mood disturbance, and anxiety; F41.9 Anxiety disorder, unspecified; I10 Essential (primary) hypertension; G40.909 Epilepsy, unspecified, not intractable, without status epilepticus; R00.0 Tachycardia, unspecified; Z79.51 Long term (current) use of inhaled steroids; Z87.891 Personal history of nicotine dependence; Z20.822 Contact with and (suspected) exposure to COVID-19; Z66 Do not resuscitate
CPT/HCPCS: 36415; 36600; 71045; 80053; 82805; 83880; 84484; 85018; 85025; 85380; 85610; 87040; 87637; 93005; 94640; 96365; 96375; 96376; 99285; A9270; G0378; J0696; J2060; J2270

== ENCOUNTER 2024-04-20 14:40 | HOS | payer OTHER, SELFPAY ==
--- NOTE | 2024-04-20 14:40 | PC.NURSE ---
Patient transferred to hospice care. Viktoriya Hospice Nurse here and coordinated Hospice Orders and family wishes. Family does not want to discuss admission at this time.
--- NOTE | 2024-04-20 14:45 | PC.NURSE ---
Family and POA family members in room, states would like mother kept comfortable.
[2024-04-20 15:00] VITALS: BMI 15.8
--- NOTE | 2024-04-20 16:06 | PM.IMHP ---
H&P: HPI History of Present Illness Date/Time: 04/20/24 16:06 Chief Complaint: respiratory distress Narrative: Patient is a 70-year-old female who initially presented to the emergency department in respiratory distress from care home facility. Patient only responding to painful stimuli was found to be in acute respiratory failure with hypoxia and hypercapnia in the emergency department. She was initially placed on BiPAP however was not tolerating BiPAP she was tachycardic, tachypnea with retractions with noticeable air hunger. patient was admitted to the unit on BiPAP both still extremely confused, anxious pulling at BiPAP and in respiratory distress. I had a discussion with family at bedside and discussed patient has guarded prognosis at that time family agreed they wanted comfort care with no aggressive treatment with a consult to hospice. Consult to hospice was placed patient was discharged from inpatient admitted to hospice care. Review of Systems Review of Systems: ROS unobtainable: Yes unobtainable due to medical condition PMFSH Past Medical History Medical History Anxiety Chronic obstructive pulmonary disease Dementia Hypertension Seizure disorder Surgical History Surgical History History of cataract extraction History of tonsillectomy Family History Family History Other Family history non-contributory Social History Social History Social History: Healthcare power of collections attorney: Ketan Moser. Code status: Full code. Smoking packs per day: 1 Smoking cigarettes per day: 20.0 Years smoked: 50 Smoking pack-years: 50.00 Smoking status: Former smoker Tobacco type: cigarettes Second hand tobacco smoke exposure: No Smoking end date: 11/06/14 Alcohol intake: never Substance use: never Substance use type: does not use Do You Feel Safe in your Home?: Yes Lack of Transportation: No Lack of Food: Never True Current Housing: I Have Housing Concerned About Future Housing: No Difficulty Paying Gas/Electric Bills: No Difficulty Paying for Meds: No Currently Unemployed: No Education: Don't Know Difficulty w/ Childcare or Family Care: No Spiritual care concerns: No Meds Home Medications and Allergies Allergies Allergy/AdvReac Type Severity Reaction Status Date / Time memantine [From Namenda] AdvReac Confusion Verified 03/08/24 19:32 quetiapine [From Seroquel] AdvReac Confusion Verified 03/08/24 19:32 Exam Narrative: GENERAL: only responsive to painful stimuli. respiratory distress cachectic EYES: Closed minimal response HEENT: Dry mucous membranes. LUNGS:Wheezing to auscultation bilaterally throughout. Use of accessory muscle, tachypnea, retractions CARDIOVASCULAR: tachycardia. No murmur. No JVD. S1-S2 ABDOMEN: Soft, non tenderness and non-distended. No palpable masses. EXTREMITIES: No edema. Non-tender SKIN: No rashes or lesions. mottling NEUROLOGIC: unable to assess PSYCHIATRIC: NA Assessment and Plan Assessment and plan (1) Hospice care: Code(s): Z51.5 - Encounter for palliative care Status: Acute Assessment and Plan: Placed on hospice care Morphine Ativan scopolamine patch oxygen p.r.n. for comfort Pace catheter placed (2) Acute and chronic respiratory failure with hypoxia: Code(s): J96.21 - Acute and chronic respiratory failure with hypoxia Status: Acute Assessment and Plan: secondary to COPD exacerbation patient placed on hospice care Plan Patient has been placed on hospice care through [facility] morphine and Ativan scheduled family at bedside Quality If No VTE Prophylaxis Answer
--- NOTE | 2024-04-20 18:00 | PC.NURSE ---
T. 98.3; P.138; R. 16; Pox: 96% on 6L [place] oxygen. Family at bedside.
[2024-04-20] MEDS: MORPHINE SULFATE (*CRX) 2 MG/ML INJ IV PUSH ×2 (18:03→19:04)
[2024-04-20] MEDS: LORazepam INJ (*CRX) 2 MG/ML VIAL IV PUSH ×2 (18:06→20:00)
--- NOTE | 2024-04-20 20:05 | PC.NURSE ---
Patient at 2004, pronounced by Dr. García. Family at bedside and aware. Charge nurse to contact spd manager, hospice, ect.
--- NOTE | 2024-04-20 22:05 | PC.NURSE ---
FRANSISCO Campos, here from [facility] to see family.
--- NOTE | 2024-04-22 07:50 | PM.DDS ---
Discharge Summary Date and Time Date of : 04/20/24 Time of : 20:05 Provider Pronounced By: Provider Name of Provider That Pronounced: Dr. García Probable Cause of Probable Cause of : acute respiratory failure with hypoxia and hypercapnia Summary Hospital Course: Patient is a 70-year-old female who initially presented to the emergency department in respiratory distress from detention facility. Patient only responding to painful stimuli was found to be in acute respiratory failure with hypoxia and hypercapnia in the emergency department. She was initially placed on BiPAP however was not tolerating BiPAP she was tachycardic, tachypnea with retractions with noticeable air hunger. patient was admitted to the unit on BiPAP both still extremely confused, anxious pulling at BiPAP and in respiratory distress. I had a discussion with family at bedside and discussed patient has guarded prognosis at that time family agreed they wanted comfort care with no aggressive treatment with a consult to hospice. Consult to hospice was placed patient was discharged from inpatient admitted to hospice care. patient was initiated on comfort measures with morphine, Ativan, scopolamine patch and transitioned to nasal cannula oxygen for comfort. Pace catheter was placed and family was at bedside patient passed at [address] García. Additional Data Confirmation of as documented by pronouncing clinician: Pupillary Reflex, Palpable Pulses, Response to Stimuli, Heart Tones and Breath Sounds Name of Provider Notified: Viktoriya Haq NP Time Provider Notified: 20:10 Was code activated?: No Provider Requests Autopsy: No Family Requests Autopsy: No Date [facility] Notified of : 04/20/24 Time [facility] Notified of : 20:25 Advance directives: No Hospice patient?: Yes
== END 2024-04-20 20:05 | disposition expired | DRG 951 ==
PROVIDERS: Admitting Provider Internal Medicine; PCP Family Medicine; Visit Provider Nurse Practitioner Family
DX: Z51.5 Encounter for palliative care (principal); J96.21 Acute and chronic respiratory failure with hypoxia; I10 Essential (primary) hypertension; G40.909 Epilepsy, unspecified, not intractable, without status epilepticus; F03.90 Unspecified dementia, unspecified severity, without behavioral disturbance, psychotic disturbance, mood disturbance, and anxiety; Z87.891 Personal history of nicotine dependence
CPT/HCPCS: J2060; J2270